=== PATIENT | female | born 1960 | race Two or more races ===

== ENCOUNTER 2021-01-04 18:46 | Emergency (ER) | payer SELFPAY ==
[~2021-01-04] VITALS: Ht 165.1 cm; Wt 92.1 kg
[2021-01-04] MEDS ORDERED: KETOROLAC TROMETH 60MG/2ML VIAL IM ONE (19:45)
[2021-01-04 19:48] VITALS: BP 146/65
== END 2021-01-04 20:08 | disposition home or self-care (01) ==
LOC: ER 18:48
DX: M19.90 Unspecified osteoarthritis, unspecified site (principal); I10 Essential (primary) hypertension; Z88.6 Allergy status to analgesic agent
CPT/HCPCS: 96372; 99283; J1885

== ENCOUNTER 2021-06-02 14:04 | Inpatient (IN) | payer MEDICAID, OTHER ==
[~2021-06-02] VITALS: Ht 165.1 cm; Wt 90.5 kg
[2021-06-02 14:53] LABS: Basophils # (auto) 0.1 10 ^3/uL (0-0.2); Basophils % (auto) 1.6 % (0.0-2.0); Eosinophils # (auto) 0.2 10 ^3/uL (0-0.8); Eosinophils % (auto) 2.9 % (0.0-7.0); Hematocrit 41.5 % (36.0-46.0); Hemoglobin 14.6 g/dL (12.2-16.2); Lymphocytes # (auto) 3.3 10 ^3/uL (0.4-5.4); Lymphocytes % (auto) 41.9 % (10.0-50.0); Mean Corpuscular Hgb Conc. 35.1 g/dL (32.0-36.0); Mean Corpuscular Volume 82.5 fL (80.0-100.0); Monocytes # (auto) 0.3 10 ^3/uL (0-1.3); Monocytes % (auto) 3.2 % (0.0-12.0); Neutrophils % (auto) 50.4 % (37.0-80.0); Nucleated Red Blood Cells % 0.3 %; Red Blood Cells 5.03 10^6/uL (4.0-5.20); Red Cell Distribution Width 13.8 % (11.8-14.3)
[2021-06-02 15:28] LABS: Calcium 9.2 mg/dL (8.5-10.1); Chloride 108 mmol/L (98-107); Potassium 3.7 mmol/L (3.5-5.1); Sodium 140 mmol/L (136-145)
[2021-06-02 15:31] LABS: Alanine Aminotransferase 63 U/L (13-56); Anion Gap 8 (5-15); Aspartate Aminotransferase 29 U/L (15-37); BUN/Creatinine Ratio 13.2; Blood Urea Nitrogen 10 mg/dL (7-18); Carbon Dioxide 24 mmol/L (21-32); GFR African American 100 mL/min; GFR Non-African American 83 mL/min; Glucose 102 mg/dL (74-106); Magnesium 2.4 mg/dL (1.6-2.6)
[2021-06-02 15:36] LABS: Alkaline Phosphatase 101 U/L (45-117); Bilirubin, Total 0.2 mg/dL (0.2-1.0); Total Protein 7.8 g/dL (6.4-8.2)
[2021-06-02] MEDS ORDERED: CLINDAMYCIN 600MG IV 50 ML IV ONE (16:00)
[2021-06-02] MEDS ORDERED: MORPHINE SULFATE INJECTION 2 MG/ML SYRG IV PRN ×2 (16:30→21:15)
[2021-06-02] MEDS ORDERED: NITROGLYCERIN 0.4 MG SL TAB SL PRN (16:30)
[2021-06-02] MEDS ORDERED: ONDANSETRON HCL 4 MG/2 ML VIAL IV PRN (21:15)
[2021-06-02] MEDS ORDERED: diphenhdrAMINE HCL 50 MG/1 ML VL IV PRN (21:15)
[2021-06-02] MEDS ORDERED: IPRATROPIUM BROM 0.5 MG/2.5ML INH SOL NEB ONE (21:15)
[2021-06-02] MEDS ORDERED: BUDESONIDE (INHALATION) 0.5 MG/2 ML NEB NEB ONE (21:15)
[2021-06-02] MEDS ORDERED: cefTRIAXone 1GM/50ML D5W 50 ML IV ONE (21:15)
[2021-06-02] MEDS ORDERED: LACTULOSE 20Gm/30ML SOLN PO PRN (21:15)
[2021-06-02] MEDS ORDERED: LORazepam 0.5 MG TAB PO PRN (21:15)
[2021-06-02] MEDS ORDERED: HYDROcodone-ACET 5/325MG TAB PO ONE (21:15)
[2021-06-02] MEDS ORDERED: diphenhdrAMINE-ZINC ACETATE 1 APPLIC APPL TOP PRN (21:15)
[2021-06-02] MEDS ORDERED: ALBUTEROL SULF 2.5 MG/0.5ML(0.5%) NEB SOLN NEB ONE (21:15)
[2021-06-02] MEDS ORDERED: MONTELUKAST SODIUM 10 MG TAB PO ONE (21:15)
[2021-06-02] MEDS ORDERED: diphenhdrAMINE-ZINC ACETATE 1 APPLIC APPL TOP ONE (21:15)
[2021-06-02] MEDS ORDERED: ACETAMINOPHEN 325 MG TAB PO PRN (21:15)
[2021-06-02] MEDS ORDERED: hydrALAZINE HCL 20 MG/ML VL IV PRN (21:15)
[2021-06-02] MEDS ORDERED: DOCUSATE SOD 100 MG CAP PO PRN (21:15)
[2021-06-02 21:19] LABS: Magnesium 2.1 mg/dL (1.6-2.6); Phosphorus 2.5 mg/dL (2.5-4.90)
[2021-06-02 22:42] LABS: INR 0.99 (0.9-1.15); Partial Thromboplastin Time 23.6 sec (23.6-33.0)
[2021-06-02 23:05] LABS: Urine Bacteria NONE SEEN /hpf (None Seen); Urine Blood Negative /uL (Negative); Urine Specific Gravity 1.004 (1.001-1.035); Urine WBC 2 /hpf (0 - 5)
[2021-06-03] MEDS: POTASSIUM CHL 20 Meq TABLET PO SCH ×2 (00:09→10:40)
[2021-06-03] MEDS: ATORVASTATIN 20 MG TAB PO SCH ×2 (00:09→21:36)
[2021-06-03] MEDS: CLINDAMYCIN 600MG IV 50 ML IV SCH ×4 (00:57→22:10)
[2021-06-03 01:50] VITALS: BP 130/78
[2021-06-03] MEDS ORDERED: IPRATROPIUM BROM 0.5 MG/2.5ML INH SOL NEB SCH (02:00)
[2021-06-03] MEDS: HYDROcodone-ACET 5/325MG TAB PO PRN ×2 (04:46→10:44)
[2021-06-03] MEDS ORDERED: AML5T PO (04:52)
[2021-06-03] MEDS ORDERED: LISI40TA11 PO (04:52)
[2021-06-03] MEDS ORDERED: ALBU108A5 IN (04:53)
[2021-06-03 05:00] VITALS: BP 115/64
[2021-06-03 05:57] LABS: Basophils # (auto) 0.1 10 ^3/uL (0-0.2); Basophils % (auto) 0.7 % (0.0-2.0); Eosinophils # (auto) 0.3 10 ^3/uL (0-0.8); Hematocrit 37.7 % (36.0-46.0); Hemoglobin 13.2 g/dL (12.2-16.2); Lymphocytes # (auto) 3.7 10 ^3/uL (0.4-5.4); Lymphocytes % (auto) 42.7 % (10.0-50.0); Mean Corpuscular Volume 82.9 fL (80.0-100.0); Monocytes # (auto) 0.3 10 ^3/uL (0-1.3); Monocytes % (auto) 3.8 % (0.0-12.0); Neutrophils # (auto) 4.3 10 ^3/uL (1.6-8.6); Neutrophils % (auto) 49.8 % (37.0-80.0); Nucleated Red Blood Cells % 0.2 %; Red Blood Cells 4.55 10^6/uL (4.0-5.20); Red Cell Distribution Width 13.9 % (11.8-14.3); White Blood Cell 8.7 10^3/uL (4.4-10.8)
[2021-06-03] MEDS ORDERED: FUROSEMIDE 20 MG/2 ML VIAL IV SCH (06:00)
[2021-06-03 06:17] LABS: INR 1.04 (0.9-1.15); Partial Thromboplastin Time 28.1 sec (23.6-33.0)
[2021-06-03 06:26] LABS: Urine Bacteria NONE SEEN /hpf (None Seen); Urine Blood Negative /uL (Negative); Urine Specific Gravity 1.007 (1.001-1.035); Urine WBC 3 /hpf (0 - 5)
[2021-06-03 06:32] LABS: Alanine Aminotransferase 49 U/L (13-56); Albumin 3.3 g/dL (3.4-5.0); Anion Gap 7 (5-15); Aspartate Aminotransferase 17 U/L (15-37); Calcium 8.6 mg/dL (8.5-10.1); Carbon Dioxide 24 mmol/L (21-32); Chloride 109 mmol/L (98-107); Glucose 117 mg/dL (74-106); Lipase 130 U/L (73-393); Magnesium 2.2 mg/dL (1.6-2.6); Potassium 3.7 mmol/L (3.5-5.1); Sodium 140 mmol/L (136-145); Uric Acid 4.2 mg/dL (2.6-6.0)
[2021-06-03 06:37] LABS: Alkaline Phosphatase 77 U/L (45-117); Bilirubin, Total 0.2 mg/dL (0.2-1.0); CRP High Sensitivity 0.38 mg/dL (< 0.3); Cholesterol 162 mg/dL (< 200); Creatine Kinase IFCC 62 U/L (26-192); GFR African American 99 mL/min; GFR Non-African American 82 mL/min; HDL Cholesterol 50 mg/dL (40-59); LDL Cholesterol 94 mg/dL (< 100); Phosphorus 3.5 mg/dL (2.5-4.90); Total Protein 6.8 g/dL (6.4-8.2); Triglycerides 130 mg/dL (< 150)
[2021-06-03] MEDS: ALBUTEROL SULF 2.5 MG/0.5ML(0.5%) NEB SOLN NEB PRN ×2 (07:00→17:01)
[2021-06-03 07:25] LABS: Alcohol, Urine < 3.0 mg/dL (0-10); Amphetamine Screen, Urine NEGATIVE (NEGATIVE); Barbiturate Scree,Urine NEGATIVE (NEGATIVE); Benzodiazephine Screen, Urine NEGATIVE (NEGATIVE); Cannabinoid Screen, Urine NEGATIVE (NEGATIVE); Cocaine Screen, Urine NEGATIVE (NEGATIVE); Opiate Scree,Urine NEGATIVE (NEGATIVE); Phencyclidine Screen, Urine NEGATIVE (NEGATIVE); Protein, Urine < 5.0 mg/dL (0.0-11.9)
[2021-06-03 07:53] LABS: BUN/Creatinine Ratio 15.6; Blood Urea Nitrogen 12 mg/dL (7-18)
[2021-06-03 09:00] VITALS: BP 119/64
[2021-06-03] MEDS ORDERED: BUDESONIDE (INHALATION) 0.5 MG/2 ML NEB NEB SCH (10:00)
[2021-06-03] MEDS: ENOXAPARIN SOD 40 MG/0.4 ML SYRINGE SC SCH (10:40)
[2021-06-03 13:00] VITALS: BP 116/75
[2021-06-03] MEDS: LEVOTHYROXINE SODIUM 50 MCG TAB PO SCH (14:13)
[2021-06-03] MEDS ORDERED: IPRATROPIUM BROM 0.5 MG/2.5ML INH SOL NEB PRN (21:45)
[2021-06-03 22:00] VITALS: BP 122/75
[2021-06-03] MEDS ORDERED: cefTRIAXone 1GM/50ML D5W 50 ML IV SCH (22:00)
[2021-06-03] MEDS ORDERED: MONTELUKAST SODIUM 10 MG TAB PO SCH (22:00)
[2021-06-04 05:00] VITALS: BP 129/82
[2021-06-04] MEDS: CLINDAMYCIN 600MG IV 50 ML IV SCH ×2 (06:26→13:30)
[2021-06-04] MEDS: LEVOTHYROXINE SODIUM 50 MCG TAB PO SCH (06:26)
[2021-06-04] MEDS: ENOXAPARIN SOD 40 MG/0.4 ML SYRINGE SC SCH (08:51)
[2021-06-04 09:47] VITALS: BP 109/60
[2021-06-04 13:21] VITALS: BP 145/88
[2021-06-04 13:24] VITALS: BP 122/64
[2021-06-04] MEDS: HYDROcodone-ACET 5/325MG TAB PO PRN (13:41)
[2021-06-04] MEDS ORDERED: LEV50T PO (14:04)
[2021-06-04] MEDS ORDERED: POTA8TAB2 PO (14:04)
[2021-06-04] MEDS ORDERED: HYDR25TA5 PO (14:04)
[2021-06-04 16:15] VITALS: BP 115/64
[2021-06-04 17:00] VITALS: BP_SYST 138; BP_SYST 143; BP_DIAS 69; BP_DIAS 92
[2021-06-05] MEDS ORDERED: FUROSEMIDE 20 MG/2 ML VIAL IV SCH (06:00)
== END 2021-06-04 18:40 | disposition home or self-care (01) | DRG 383 ==
LOC: ER 14:04 → TELE 16:23 → TELE-EAST 23:41
PROVIDERS: ADMIT Hospitalist; ATTEND Internal Medicine
DX: L03.116 Cellulitis of left lower limb (principal); E44.0 Moderate protein-calorie malnutrition; D69.0 Allergic purpura; I87.2 Venous insufficiency (chronic) (peripheral); L03.115 Cellulitis of right lower limb; L25.9 Unspecified contact dermatitis, unspecified cause; J45.909 Unspecified asthma, uncomplicated; K21.9 Gastro-esophageal reflux disease without esophagitis; M19.90 Unspecified osteoarthritis, unspecified site; E03.9 Hypothyroidism, unspecified; E66.01 Morbid (severe) obesity due to excess calories; E78.5 Hyperlipidemia, unspecified; Z20.822 Contact with and (suspected) exposure to COVID-19; I10 Essential (primary) hypertension; R73.03 Prediabetes; Z68.33 Body mass index [BMI] 33.0-33.9, adult; Z88.6 Allergy status to analgesic agent; Z90.49 Acquired absence of other specified parts of digestive tract; Z98.51 Tubal ligation status
CPT/HCPCS: 36415; 71046; 80053; 80061; 80307; 81001; 82306; 82550; 82728; 83036; 83615; 83690; 83735; 83880; 84100; 84156; 84439; 84443; 84484; 84550; 85025; 85379; 85610; 85652; 85730; 86141; 87040; 87070; 87086; 87205; 93306; 93925; 93970; 94640; 96365; 96367; G0378; J0696; J3490

== ENCOUNTER → 2022-06-20 | Outpatient (CLI) | payer MEDICAID ==
[~2022-06-20] MED LIST: ALBU108A5 IN; HYDR25TA5 PO; LEV50T PO; LISI40TA11 PO; POTA8TAB2 PO
== END | disposition home or self-care (01) ==
LOC: Rad HDHVI 11:09
PROVIDERS: ATTEND Internal Medicine Cardiovascular Disease
DX: I10 Essential (primary) hypertension (principal)
CPT/HCPCS: 93306

== ENCOUNTER → 2022-08-08 | Outpatient (CLI) | payer MEDICAID ==
[~2022-08-08] VITALS: Ht 165.1 cm; Wt 90.7 kg
[~2022-08-08] MED LIST changes: +ADENOSINE 76 MG in GIVE UN-DILUTED 0 ML IV ONE; +ADENOSINE 90 MG/30 ML INJ IV ONE; +CEPH500C PO; +CETITAB29 PO; -LISI40TA11 PO; +LISI40TA16 PO; -POTA8TAB2 PO; +POTA8TAB38 PO; +PRED10TA PO
== END | disposition home or self-care (01) ==
LOC: Rad HDHVI 08:29
PROVIDERS: ATTEND Internal Medicine Cardiovascular Disease
DX: I10 Essential (primary) hypertension (principal); R07.89 Other chest pain; R00.2 Palpitations; Z82.49 Family history of ischemic heart disease and other diseases of the circulatory system
CPT/HCPCS: 78452; 93005; 96374; 96375; A9500; J0153

== ENCOUNTER 2022-09-25 18:07 | Emergency (ER) | payer MEDICAID ==
[~2022-09-25] VITALS: Ht 165.1 cm; Wt 91.3 kg
[~2022-09-25 18:07] MED LIST changes: -ADENOSINE 76 MG in GIVE UN-DILUTED 0 ML IV ONE; -ADENOSINE 90 MG/30 ML INJ IV ONE
[2022-09-25 19:31] LABS: Calcium 8.9 mg/dL (8.5-10.1); Potassium 3.9 mmol/L (3.5-5.1)
[2022-09-25 19:33] LABS: Basophils # (auto) 0.2 10 ^3/uL (0-0.2); Basophils % (auto) 2.8 % (0.0-2.0); Eosinophils # (auto) 0 10 ^3/uL (0-0.8); Eosinophils % (auto) 0.2 % (0.0-7.0); Hemoglobin 14.9 g/dL (12.2-16.2); Lymphocytes # (auto) 0.8 10 ^3/uL (0.4-5.4); Lymphocytes % (auto) 11.4 % (10.0-50.0); Mean Corpuscular Hemoglobin 28.7 pg (28.0-32.0); Mean Corpuscular Hgb Conc. 33.8 g/dL (32.0-36.0); Monocytes # (auto) 0.5 10 ^3/uL (0-1.3); Monocytes % (auto) 6.2 % (0.0-12.0); Neutrophils # (auto) 5.8 10 ^3/uL (1.6-8.6); Neutrophils % (auto) 79.4 % (37.0-80.0); Nucleated Red Blood Cells % 0.1 %; Red Blood Cells 5.18 10^6/uL (4.0-5.20); Red Cell Distribution Width 13.3 % (11.8-14.3); White Blood Cell 7.3 10^3/uL (4.4-10.8)
[2022-09-25 19:36] LABS: BUN/Creatinine Ratio 13.4 (10.0-20.0); Bilirubin, Total 0.4 mg/dL (0.2-1.0); Total Protein 7.3 g/dL (6.4-8.2)
[2022-09-25 19:54] LABS: INR 0.98 (0.9-1.15); Partial Thromboplastin Time 32.8 SEC (24.5-34.5)
[2022-09-25] MEDS ORDERED: ALBUTEROL SULF 2.5 MG/0.5ML(0.5%) NEB SOLN NEB ONE (21:30)
[2022-09-25] MEDS ORDERED: IPRATROPIUM BROM 0.5 MG/2.5ML INH SOL NEB ONE (21:30)
[2022-09-25] MEDS ORDERED: MONT-8 PO (21:56)
[2022-09-25] MEDS ORDERED: AZITTAB PO (21:56)
[2022-09-25] MEDS ORDERED: PROM1SOL4 PO (21:56)
[2022-09-25 22:18] VITALS: BP 145/81; PULSE 93; RESP 17; TEMP 98.6; O2SAT 99
== END 2022-09-25 22:29 | disposition home or self-care (01) ==
LOC: ER 18:07
DX: B34.8 Other viral infections of unspecified site (principal); J06.9 Acute upper respiratory infection, unspecified; M79.18 Myalgia, other site; R51.9 Headache, unspecified; J45.909 Unspecified asthma, uncomplicated; I10 Essential (primary) hypertension; Z90.49 Acquired absence of other specified parts of digestive tract; Z98.51 Tubal ligation status; Z88.6 Allergy status to analgesic agent
CPT/HCPCS: 36415; 71045; 80053; 83880; 84484; 85025; 85610; 85730; 93005; 94640; 99285; J7644

== ENCOUNTER 2022-12-21 18:05 | Emergency (ER) | payer MEDICAID ==
[~2022-12-21] VITALS: Ht 165.1 cm; Wt 92.8 kg
[~2022-12-21 18:05] MED LIST changes: +AZITTAB PO; +MONT-8 PO; +PROM1SOL4 PO
[2022-12-21 20:43] VITALS: BP 130/61; PULSE 68; RESP 18; O2SAT 99
[2022-12-21] MEDS ORDERED: LORazepam 0.5 MG TAB PO ONE (20:45)
== END 2022-12-21 21:15 | disposition home or self-care (01) ==
LOC: ER 18:05
DX: F41.9 Anxiety disorder, unspecified (principal); J45.909 Unspecified asthma, uncomplicated; I10 Essential (primary) hypertension; Z90.49 Acquired absence of other specified parts of digestive tract; Z98.890 Other specified postprocedural states

== ENCOUNTER 2023-01-31 21:34 | Emergency (ER) | payer MEDICAID ==
[~2023-01-31] VITALS: Ht 162.6 cm; Wt 96.5 kg
[2023-02-01 00:01] VITALS: BP 161/89; PULSE 81; RESP 18; TEMP 98.1; O2SAT 96
[2023-02-01] MEDS ORDERED: HYDROcodone-ACET 5/325MG TAB PO ONE (01:15)
[2023-02-01] MEDS ORDERED: CYCL-837 PO (02:00)
== END 2023-02-01 02:23 | disposition home or self-care (01) ==
LOC: ER 21:34
DX: M25.511 Pain in right shoulder (principal); I10 Essential (primary) hypertension; E03.9 Hypothyroidism, unspecified; J45.909 Unspecified asthma, uncomplicated; Z90.49 Acquired absence of other specified parts of digestive tract; Z79.899 Other long term (current) drug therapy; Z88.6 Allergy status to analgesic agent
CPT/HCPCS: 73030

== ENCOUNTER → 2023-08-04 | Outpatient (CLI) | payer MEDICAID ==
[~2023-08-04] VITALS: Ht 165.1 cm; Wt 90.7 kg
[~2023-08-04] MED LIST changes: +ACET650T12 PO; +ADENOSINE 76 MG in GIVE UN-DILUTED 0 ML IV ONE; +ADENOSINE 90 MG/30 ML INJ IV ONE; +AMLO1TAB23 PO; +ATOR20TA50 PO; -AZITTAB PO; -CEPH500C PO; +DOCU-265 PO; +FLUT50SP NAS; +GABA-339 PO; +HYDR-3682 PO; -LISI40TA16 PO; +LOSA-534 PO; +METF-1145 PO; +PANT40TA2 PO; -POTA8TAB38 PO; -PRED10TA PO; -PROM1SOL4 PO; +RAME8TAB26 PO; +SUMA25TA2 PO; +TOPI25CA5 PO; +TRAZ-181 PO; +VENL150C58 PO
== END | disposition home or self-care (01) ==
LOC: Rad HDHVI 12:59
PROVIDERS: ATTEND Internal Medicine Cardiovascular Disease
DX: I10 Essential (primary) hypertension (principal); R06.02 Shortness of breath; R07.89 Other chest pain; R00.2 Palpitations; R42 Dizziness and giddiness; I25.2 Old myocardial infarction; E11.9 Type 2 diabetes mellitus without complications; E78.5 Hyperlipidemia, unspecified
CPT/HCPCS: 78452; 93005; 96374; 96375; A9500; J0153

== ENCOUNTER 2023-10-27 16:19 | Emergency (ER) | payer MEDICAID ==
[~2023-10-27] VITALS: Ht 165.1 cm; Wt 115.0 kg
[~2023-10-27 16:19] MED LIST changes: -ADENOSINE 76 MG in GIVE UN-DILUTED 0 ML IV ONE; -ADENOSINE 90 MG/30 ML INJ IV ONE; -LEV50T PO; +LEVO-848 PO
[2023-10-27 18:00] LABS: Urine Bacteria None Seen /hpf (None Seen)
[2023-10-27 18:30] LABS: Urine Blood Negative /uL (Negative); Urine Clarity Turbid (Clear); Urine Color Yellow (Yellow); Urine Mucus FEW (None Seen); Urine Protein, UAD TRACE (Negative); Urine Specific Gravity 1.019 (1.001-1.035); Urine Urobilinogen Normal (Negative); Urine WBC 1 /hpf (0 - 5)
[2023-10-27 19:31] LABS: Basophils # (auto) 0.1 10 ^3/uL (0-0.2); Basophils % (auto) 0.7 % (0.0-2.0); Eosinophils # (auto) 0.2 10 ^3/uL (0-0.8); Eosinophils % (auto) 2.3 % (0.0-7.0); Hematocrit 41.1 % (36.0-46.0); Hemoglobin 13.8 g/dL (12.2-16.2); Lymphocytes # (auto) 3.5 10 ^3/uL (0.4-5.4); Lymphocytes % (auto) 38.6 % (10.0-50.0); Mean Corpuscular Hemoglobin 28.5 pg (28.0-32.0); Mean Corpuscular Hgb Conc. 33.7 g/dL (32.0-36.0); Mean Corpuscular Volume 84.6 fL (80.0-100.0); Monocytes # (auto) 0.3 10 ^3/uL (0-1.3); Monocytes % (auto) 3.3 % (0.0-12.0); Neutrophils % (auto) 55.1 % (37.0-80.0); Platelet Count (auto) 276 10^3/uL (140-450); Red Blood Cells 4.86 10^6/uL (4.0-5.20); Red Cell Distribution Width 14.6 % (11.8-14.3); White Blood Cell 9.1 10^3/uL (4.4-10.8)
[2023-10-27 19:43] LABS: Alanine Aminotransferase 26 U/L (7-40); Alkaline Phosphatase 118 U/L (46-116); Anion Gap 6 (5-15); Aspartate Aminotransferase 16 U/L (13-40); Bilirubin, Total 0.4 mg/dL (0.2-1.0); Calcium 10.1 mg/dL (8.7-10.4); Carbon Dioxide 29 mmol/L (20-30); Chloride 105 mmol/L (98-107); Glucose 89 mg/dL (74-106); Potassium 4.2 mmol/L (3.5-5.1); Sodium 140 mmol/L (136-145); Total Protein 7.6 g/dL (5.7-8.2)
[2023-10-27 20:09] LABS: BUN/Creatinine Ratio 12.2 (10.0-20.0); Blood Urea Nitrogen 10 mg/dL (9-23)
[2023-10-27 21:22] VITALS: BP 137/57; PULSE 73; RESP 19; TEMP 97.2; O2SAT 99
[2023-10-27] MEDS: FUROSEMIDE 20 MG TAB PO ONE (21:55)
[2023-10-27] MEDS: NITROGLYCERIN 0.4 MG SL TAB SL ONE (21:55)
== END 2023-10-27 21:56 | disposition home or self-care (01) ==
LOC: ER 16:19
DX: I10 Essential (primary) hypertension (principal); I11.0 Hypertensive heart disease with heart failure; I50.9 Heart failure, unspecified; I25.10 Atherosclerotic heart disease of native coronary artery without angina pectoris; E11.9 Type 2 diabetes mellitus without complications; E78.5 Hyperlipidemia, unspecified; F41.9 Anxiety disorder, unspecified; F32.9 Major depressive disorder, single episode, unspecified; Z86.73 Personal history of transient ischemic attack (TIA), and cerebral infarction without residual deficits; Z98.890 Other specified postprocedural states; Z79.899 Other long term (current) drug therapy; Z88.8 Allergy status to other drugs, medicaments and biological substances
CPT/HCPCS: 36415; 80053; 81001; 84484; 85025; 93005

== ENCOUNTER 2023-12-07 22:20 | Emergency (ER) | payer MEDICAID ==
[~2023-12-07] VITALS: Ht 165.1 cm; Wt 94.1 kg
[2023-12-07 22:20] VITALS: BP 116/83; RESP 20; O2SAT 96
[2023-12-07 22:54] VITALS: PULSE 74
[2023-12-08 00:09] LABS: Basophils # (auto) 0.1 10 ^3/uL (0-0.2); Basophils % (auto) 0.7 % (0.0-2.0); Eosinophils # (auto) 0.3 10 ^3/uL (0-0.8); Eosinophils % (auto) 3.9 % (0.0-7.0); Hematocrit 36.8 % (36.0-46.0); Hemoglobin 12.4 g/dL (12.2-16.2); Lymphocytes # (auto) 3.4 10 ^3/uL (0.4-5.4); Lymphocytes % (auto) 41.4 % (10.0-50.0); Mean Corpuscular Hemoglobin 28.4 pg (28.0-32.0); Mean Corpuscular Hgb Conc. 33.6 g/dL (32.0-36.0); Mean Corpuscular Volume 84.7 fL (80.0-100.0); Monocytes # (auto) 0.4 10 ^3/uL (0-1.3); Monocytes % (auto) 4.3 % (0.0-12.0); Neutrophils # (auto) 4.1 10 ^3/uL (1.6-8.6); Neutrophils % (auto) 49.7 % (37.0-80.0); Platelet Count (auto) 263 10^3/uL (140-450); Red Blood Cells 4.35 10^6/uL (4.0-5.20); Red Cell Distribution Width 14.2 % (11.8-14.3); White Blood Cell 8.2 10^3/uL (4.4-10.8)
[2023-12-08 00:29] LABS: Alanine Aminotransferase 16 U/L (7-40); Albumin 4.6 g/dL (3.2-4.8); Alkaline Phosphatase 111 U/L (46-116); Anion Gap 8 (5-15); Aspartate Aminotransferase 12 U/L (13-40); BUN/Creatinine Ratio 14.6 (10.0-20.0); Bilirubin, Total 0.2 mg/dL (0.2-1.0); Blood Urea Nitrogen 12 mg/dL (9-23); Calcium 9.7 mg/dL (8.7-10.4); Carbon Dioxide 26 mmol/L (20-31); Chloride 107 mmol/L (98-107); Glucose 104 mg/dL (74-106); Potassium 3.6 mmol/L (3.5-5.1); Sodium 141 mmol/L (136-145)
[2023-12-08] MEDS ORDERED: FURO1TAB31 PO (01:27)
== END 2023-12-08 01:51 | disposition home or self-care (01) ==
LOC: ER 22:20
DX: M79.671 Pain in right foot (principal); M79.672 Pain in left foot; M79.18 Myalgia, other site; R60.0 Localized edema; M79.89 Other specified soft tissue disorders; I10 Essential (primary) hypertension; E11.9 Type 2 diabetes mellitus without complications; F32.A Depression, unspecified; F41.9 Anxiety disorder, unspecified; J45.909 Unspecified asthma, uncomplicated; M19.90 Unspecified osteoarthritis, unspecified site; Z79.84 Long term (current) use of oral hypoglycemic drugs; Z79.899 Other long term (current) drug therapy; Z90.49 Acquired absence of other specified parts of digestive tract; Z88.6 Allergy status to analgesic agent; Z98.890 Other specified postprocedural states
CPT/HCPCS: 36415; 71045; 80053; 83880; 84484; 85025; 93005

== ENCOUNTER 2024-02-07 15:13 | Emergency (ER) | payer MEDICAID ==
[~2024-02-07] VITALS: Ht 165.1 cm; Wt 92.5 kg
[~2024-02-07 15:13] MED LIST changes: +FURO1TAB31 PO
--- NOTE | 2024-02-07 15:26 | ED.PDOC ---
SOB-HPI HPI Comments 63 year old female presents to the ED with chief complaint of chest pain. Patient reports she has been experiencing chest pain with associated cough, nasal congestion, and worsening chest pain when coughing for the past 3 days. Patient relays that there are sick contacts at home. Patient denies any fever, chills, headache, dizziness, SOB, or N/V. Time Seen by MD: 15:23 Primary Care Provider: LING Domingo notes: Nurses Notes, Medications, Allergies Information Source: Patient Mode of Arrival: Ambulatory Severity: Moderate Timing: Days Duration: Since onset Context: At Rest PE Risk Factors: None History of: Asthma Prehospital treatment: None Modifying Factors: Nothing Associated Signs and Symptoms: Cough, Nasal Congestion, Chest Pain Quality: Tightness Radiation: Back Location: Substernal If cough with SOB: Non-Productive Past Medical History PAST MEDICAL HISTORY: Anxiety, Arthritis, Asthma, Depression, DM, High Lipids, HTN, Thyroid Surgical History: Appendectomy, Cholecystectomy, Tubal Ligation 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 History Family History Family History: Reviewed,noncontributory to illness, Family hx of HTN Social History Smoker: Non-Smoker Alcohol: Denies ETOH Use Drugs: Denies Drug Use Lives In: Home Constitutional: denies: chills, diaphoresis, fatigue, fever, malaise, sweats, weakness, others EENTM: reports: nose congestion; denies: blurred vision, double vision, ear bleeding, ear discharge, ear drainage, ear pain, ear ringing, eye pain, eye redness, hearing loss, mouth pain, mouth swelling, nasal discharge, nose bleeding, nose pain, photophobia, tearing, throat pain, throat swelling, voice changes, others Respiratory: reports: cough; denies: hemoptysis, orthopnea, SOB at rest, shortness of breath, SOB with excertion, stridor, wheezing, others Cardiovascular: reports: chest pain; denies: dizzy spells, diaphoresis, Dyspnea on exertion, edema, irregular heart beat, left arm pain, lightheadedness, palpitations, PND, syncope, others Gastrointestinal: denies: abdomen distended, abdominal pain, blood streaked bowels, constipated, diarrhea, dysphagia, difficulty swallowing, hematemesis, melena, nausea, poor appetite, poor fluid intake, rectal bleeding, rectal pain, vomiting, others Genitourinary: denies: abnormal vagina bleeding, burning, dyspareunia, dysuria, flank pain, frequency, hematuria, incontinence, pain, , vagina discharge, urgency, others Neurological: denies: dizziness, fainting, headache, left sided numbness, left sided weakness, numbness, paresthesia, pre-existing deficit, right sided numbness, right sided weakness, seizure, speech problems, tingling, tremors, weakness, others Musculoskeletal: reports: back pain; denies: gout, joint pain, joint swelling, muscle pain, muscle stiffness, neck pain, others Integumetry: denies: bruises, change in color, change in hair/nails, dryness, laceration, lesions, lumps, rash, wounds, others Allergic/Immunocompromised: denies: Difficulty Healing, Frequent Infections, Hives, Itching, others Hematologic/Lymphatic: denies: anemia, blood clots, easy bleeding, easy bruising, swollen glands, others Endocrine: denies: excessive hunger, excessive sweating, excessive thirst, excessive urination, flushing, intolerance to cold, intolerance to heat, unexplained weight gain, unexplained weight loss, others Psychiatric: denies: anxiety, bipolar disorder, depression, hopeless, panic disorder, schizophrenia, sleepless, suicidal, others All Other Systems: Reviewed and Negative Physical Exam General Appearance: No Apparent Distress, Normal HEENT: Normal ENT Inspection, PERRL/EOMI, Other (Nasally voice.) Neck: Full Range of Motion, Non-Tender, Normal, Normal Inspection Respiratory: Chest Non-Tender, Lungs Clear, No Accessory Muscle Use, No Respiratory Distress, Normal Breath Sounds Cardiovascular: No Edema, No JVD, No Murmur, No Gallop, Normal Peripheral Pulses, Regular Rate/Rhythm Breast Exam: Deferred Gastrointestinal: No Organomegaly, Non Tender, No Pulsatile Mass, Normal Bowel Sounds, Soft Genitalia: Deferred Pelvic: Deferred Rectal: Deferred Extremities: No calf tenderness, Normal capillary refill, Normal inspection, Normal range of motion, Non-tender, No pedal edema Musculoskeletal : Apperance: Normal Neurologic: Alert, architecture department 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 Was a procedure done?: No Differential Dx Differential Diagnosis: Asthma, Bronchitis, Pneumonia, Sinusitis, Allergic Rhinitis, URI, Other (influenza, covid) X-Ray, Labs, Meds, VS Vital Signs Date Time Temp Pulse Resp B/P (MAP) Pulse Ox O2 Delivery O2 Flow Rate FiO2 02/07/24 15:27 78 02/07/24 15:16 97.8 84 17 138/52 (80) 98 Lab Test 02/07/24 15:25 Range/Units Influenza Type A Antigen Negative Negative Influenza Type B Antigen Negative Negative SARS-CoV-2 Antigen (Rapid) Negative NEGATIVE - The following tests were ordered, and results were reviewed by me: COVID-19 swab, Influenza A/B swab, Chest XR, and EKG. - I reviewed and agreed with the following test results read by other provider: Chest XR. - I discussed treatments and results with medical personnel. Images Reviewed?: Images reviewed and evaluated by me Time of 1ST Reevaluation: 16:23 Reevaluation 1ST: Unchanged Patient Education/Counseling: Diagnosis, Treatment, Prognosis, Need For Follow Up Family Education/Counseling: No Family Present Additional Information this is a well appearing female with viral symptoms. she tested negative for influenza and covid. she is stable for outpatient follow ups with her pcp. cxr is also clear. i reviewed the radiology report and agree Departure 1 Departure Time of Disposition: 18:09 Impression: Primary Impression: Viral illness Disposition: 01 HOME / SELF CARE / HOMELESS Condition: Good Discharged With: Self Critical Care Note Critical Care Time?: No Stability Stability form required: No Heart Score Heart Score: Heart Score Response (Comments) Value History Slightly Suspicious 0 EKG Normal 0 Age 45-64 1 Risk Factors >3 or Hx ASHD 2 Troponin N/A 0 Total 3 I personally scribed for DIANA VILLAVICENCIO MD ([email or web address]) on 02/07/24 at 15:26. Electronically submitted by Roger Joseph ([email or web address]). I personally scribed for DIANA VILLAVICENCIO MD ([email or web address]) on 02/07/24 at 15:27. Electronically submitted by Roger Joseph ([email or web address]). DIANA VILLAVICENCIO MD Feb 07, 2024 15:26
--- NOTE | 2024-02-07 16:18 | DVH ---
CHEST RADIOGRAPH Indication: PAIN Technique: Single frontal view of the chest was obtained COMPARISON: XY CHEST XRAY 1 VIEW on DOS: 12/07/23, XY CHEST PORTABLE on DOS: 07/23/23, XY CHEST PORTABL E on DOS: 06/04/23, XY CHEST PORTABLE on DOS: 09/25/22 FINDINGS: Lines and Tubes: None Lungs: Clear Pleura: No effusion. No pneumothorax. Cardiomediastinal contours: Unremarkable Bones: Unremarkable IMPRESSION: 1. No acute disease.
[2024-02-07 16:29] LABS: COVID19 ANTIGEN SOFIA FIA NEGATIVE (NEGATIVE); Rapid Influenza A Negative (Negative); Rapid Influenza B Negative (Negative)
[2024-02-07 18:20] VITALS: BP 136/60; PULSE 85; RESP 16; TEMP 99; O2SAT 98
--- NOTE | 2024-02-09 12:59 | ECG ---
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
== END 2024-02-07 18:29 | disposition home or self-care (01) ==
LOC: ER 15:13
DX: B34.9 Viral infection, unspecified (principal); E11.9 Type 2 diabetes mellitus without complications; E78.5 Hyperlipidemia, unspecified; Z90.49 Acquired absence of other specified parts of digestive tract; Z90.89 Acquired absence of other organs; Z90.710 Acquired absence of both cervix and uterus; Z20.822 Contact with and (suspected) exposure to COVID-19
CPT/HCPCS: 36415; 71045; 87426; 87804; 93005

== ENCOUNTER 2024-05-03 12:25 | Emergency (ER) | payer MEDICAID ==
[~2024-05-03] VITALS: Ht 165.1 cm; Wt 89.6 kg
--- NOTE | 2024-05-03 12:52 | ED.PDOC ---
GI ASSESSMENT HPI Comments 63 y/o F, with PMHX of HTN, HLD, and DM presents to the ED for CC of abdominal pain. Patient states, that she has been experiencing diffuse abdominal pain that radiates to her lower back x4days. Patient relays, that she has been unable to have a bowel movement x4days and believes symptoms are in association. Patient comments on, current 10/10 pain. Patient denies similar pain in the past, headache, fever, nausea, or vomiting. No other symptoms or modifying factors at this time. Chief Complaint: Abdominal Pain Time Seen by MD: 13:00 Primary Care Provider: unknown Reviewed Notes: Nurses Notes, Medications, Allergies Allergies: Coded Allergies: Aspirin (Verified Allergy, Unknown, 01/04/21) Home Meds Active Scripts Furosemide (Lasix) 40 Mg Tab, 40 MG PO DAILY for 20 Days, #20 TAB Prov:ARIANNA DUNN 12/08/23 Atorvastatin Calcium (ATORVASTATIN CALCIUM) 20 Mg Tab, 40 MG PO HS for 90 Days, #180 TAB Prov:FEMI JEWELL 06/07/23 Montelukast Sodium (MONTELUKAST SODIUM) 10 Mg Tab, 1 TAB PO DAILY PRN, #30 TAB 5 Refills Prov:ARIANNA DUNN 09/25/22 Cetirizine HCl (Eql All Day Allergy) 10 Mg Tab, 10 MG PO DAILY PRN, #30 TAB 0 Refills Prov:BETTE ROSALES 08/06/22 Hctz (Hydrochlorothiazide) 25 Mg Tab, 25 MG PO DAILY for 30 Days, #30 TAB Prov:ELIDA DEVINE MD 06/04/21 Levothyroxine Sodium (SYNTHROID TABLET) 50 Mcg Tb, 50 MCG PO QAM for 30 Days, #30 TAB Prov:ELIDA DEVINE MD 06/04/21 Reported Medications Topiramate (Topiramate) 25 Mg Cap, 25 MG PO DAILY, MG 07/24/23 Pantoprazole Sodium Sesquihydr (Protonix) 40 Mg Tab, 40 MG PO DAILY, TAB 07/24/23 Gabapentin (Gabapentin) 600 Mg Tab, 600 MG PO BID, MG 07/24/23 Amlodipine Besylate (Amlodipine Besylate) 10 Mg Tab, 10 MG PO DAILY, TAB 07/24/23 Trazodone HCl (Trazodone Hydrochloride) 50 Mg Tab, 50 MG PO HS, TAB 07/24/23 Sumatriptan Succinate (Sumatriptan Succinate) 25 Mg Tab, 1 TAB PO DAILY PRN for MIGRAINES Take 1 tablet by mouth once a day as need for migraines. If symptoms persists or return, may repeat dose after 2 hours. 06/05/23 Fluticasone Propionate (Nasal) (Fluticasone Propionate) 50 Mcg/Act Spr, 2 SPRAY HUDSON DAILY 06/04/23 Ramelteon (Ramelteon) 8 Mg Tab, 1 TAB PO HS 06/04/23 Metformin Hydrochloride (Metformin Hcl Er) 500 Mg Tab, 1 TAB PO DAILY 06/04/23 Docusate Sodium (Docusate Sodium) 100 Mg Cap, 1 TAB PO TID 06/04/23 Acetaminophen (Acetaminophen Er) 650 Mg Tab, 1 TAB PO TID 06/04/23 Losartan Potassium (Losartan Potassium) 50 Mg Tab, 1 TAB PO DAILY 06/04/23 Venlafaxine Hcl (Venlafaxine Hcl Er) 150 Mg Cap, 1 CAP PO DAILY 06/04/23 Hydroxyzine Hcl (Hydroxyzine Hcl) 25 Mg Tab, 1 TAB PO DAILY 06/04/23 Albuterol Sulfate (Albuterol Sulfate Hfa) 108 Mcg/Act Aer, 90 MCG IN Q4HP PRN for SHORTNESS OF BREATH, AER 06/03/21 Information Source: Patient Mode of Arrival: Ambulatory Timing: Days Duration: Since onset Prehospital treatment: None Quality: None Vomitus: None Stool: Impaction Severity: Moderate Recent: None Recent Hx of: None Pain Location: Diffuse Modifying Factors: Nothing Associated sign and symptoms: Constipation Past Medical History PAST MEDICAL HISTORY: Anxiety, Arthritis, Asthma, Depression, DM, High Lipids, HTN, Thyroid Surgical History: Appendectomy, Cholecystectomy, Tubal Ligation 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 History Family History Family History: Reviewed,noncontributory to illness, Family hx of HTN Social History Smoker: Non-Smoker Alcohol: Denies ETOH Use Drugs: Denies Drug Use Lives In: Home Constitutional: denies: chills, diaphoresis, fatigue, fever, malaise, sweats, weakness, others EENTM: denies: blurred vision, double vision, ear bleeding, ear discharge, ear drainage, ear pain, ear ringing, eye pain, eye redness, hearing loss, mouth pain, mouth swelling, nasal discharge, nose bleeding, nose congestion, nose pain, photophobia, tearing, throat pain, throat swelling, voice changes, others Respiratory: denies: cough, hemoptysis, orthopnea, SOB at rest, shortness of breath, SOB with excertion, stridor, wheezing, others Cardiovascular: denies: chest pain, dizzy spells, diaphoresis, Dyspnea on exertion, edema, irregular heart beat, left arm pain, lightheadedness, palpitations, PND, syncope, others Gastrointestinal: reports: abdominal pain; denies: abdomen distended, blood streaked bowels, constipated, diarrhea, dysphagia, difficulty swallowing, hematemesis, melena, nausea, poor appetite, poor fluid intake, rectal bleeding, rectal pain, vomiting, others Genitourinary: denies: abnormal vagina bleeding, burning, dyspareunia, dysuria, flank pain, frequency, hematuria, incontinence, pain, , vagina discharge, urgency, others Neurological: denies: dizziness, fainting, headache, left sided numbness, left sided weakness, numbness, paresthesia, pre-existing deficit, right sided numbness, right sided weakness, seizure, speech problems, tingling, tremors, weakness, others Musculoskeletal: denies: back pain, gout, joint pain, joint swelling, muscle pain, muscle stiffness, neck pain, others Integumetry: denies: bruises, change in color, change in hair/nails, dryness, laceration, lesions, lumps, rash, wounds, others Allergic/Immunocompromised: denies: Difficulty Healing, Frequent Infections, Hives, Itching, others Hematologic/Lymphatic: denies: anemia, blood clots, easy bleeding, easy bruising, swollen glands, others Endocrine: denies: excessive hunger, excessive sweating, excessive thirst, excessive urination, flushing, intolerance to cold, intolerance to heat, unexplained weight gain, unexplained weight loss, others Psychiatric: denies: anxiety, bipolar disorder, depression, hopeless, panic disorder, schizophrenia, sleepless, suicidal, others All Other Systems: Reviewed and Negative Physical Exam General Appearance: Moderate Distress HEENT: Normal ENT Inspection, Pharynx Normal, TMs Normal Neck: Full Range of Motion, Non-Tender, Normal, Normal Inspection Respiratory: Chest Non-Tender, Lungs Clear, No Accessory Muscle Use, No Respiratory Distress, Normal Breath Sounds Cardiovascular: No Edema, No JVD, No Murmur, No Gallop, Normal Peripheral Pulses, Regular Rate/Rhythm Breast Exam: Deferred Gastrointestinal: No Organomegaly, No Pulsatile Mass, Normal Bowel Sounds, Soft, Suprapubic, Tenderness Genitalia: Deferred Pelvic: Deferred Rectal: Deferred Extremities: No calf tenderness, Normal capillary refill, Normal inspection, Normal range of motion, Non-tender, No pedal edema Musculoskeletal : Apperance: Normal Neurologic: Alert, mold closer II-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 Was a procedure done?: No GI differential Dx Differential Diagnosis: Gastritis/PUD, Gastroenteritis, Electrolyte Imbalance, Food Poisoning, Bacterial, Viral X-Ray, Labs, Meds, VS Vital Signs Date Time Temp Pulse Resp B/P (MAP) Pulse Ox O2 Delivery O2 Flow Rate FiO2 05/03/24 14:55 105 17 167/79 05/03/24 14:17 79 12 142/74 05/03/24 13:47 76 17 146/78 05/03/24 12:43 97.4 81 16 147/89 (108) 97 Lab Test 05/03/24 13:37 Range/Units White Blood Count 8.2 4.4-10.8 10^3/uL Red Blood Count 5.03 4.0-5.20 10^6/uL Hemoglobin 13.7 12.2-16.2 g/dL Hematocrit 41.7 36.0-46.0 % Mean Corpuscular Volume 82.9 80.0-100.0 fL Mean Corpuscular Hemoglobin 27.3 L 28.0-32.0 pg Mean Corpuscular Hemoglobin Concent 33.0 32.0-36.0 g/dL Red Cell Distribution Width 14.3 11.8-14.3 % Platelet Count 231 140-450 10^3/uL Mean Platelet Volume 8.7 6.9-10.8 fL Neutrophils (%) (Auto) 64.1 37.0-80.0 % Lymphocytes (%) (Auto) 30.6 10.0-50.0 % Monocytes (%) (Auto) 2.9 0.0-12.0 % Eosinophils (%) (Auto) 1.9 0.0-7.0 % Basophils (%) (Auto) 0.5 0.0-2.0 % Neutrophils # (Auto) 5.2 1.6-8.6 10 ^3/uL Lymphocytes # (Auto) 2.5 0.4-5.4 10 ^3/uL Monocytes # (Auto) 0.2 0-1.3 10 ^3/uL Eosinophils # (Auto) 0.2 0-0.8 10 ^3/uL Basophils # (Auto) 0 0-0.2 10 ^3/uL Nucleated Red Blood Cells 0.1 % Sodium Level 139 136-145 mmol/L Potassium Level 4.1 3.5-5.1 mmol/L Chloride Level 104 98-107 mmol/L Carbon Dioxide Level 25 20-31 mmol/L Anion Gap 10 5-15 Blood Urea Nitrogen 13 9-23 mg/dL Creatinine 0.79 0.550-1.02 mg/dL Glomerular Filtration Rate Calc 85 >90 mL/min BUN/Creatinine Ratio 16.5 10.0-20.0 Serum Glucose 102 74-106 mg/dL Calcium Level 10.1 8.7-10.4 mg/dL Total Bilirubin 0.3 0.2-1.0 mg/dL Aspartate Amino Transferase (AST) 19 13-40 U/L Alanine Aminotransferase (ALT) 19 7-40 U/L Alkaline Phosphatase 95 46-116 U/L Total Protein 7.5 5.7-8.2 g/dL Albumin 5.1 H 3.2-4.8 g/dL Lipase 31 12-53 U/L Current Medications Medications (Trade) Dose Ordered Sig/Dana Route Start Time Stop Time Status Last Admin Sodium Chloride 1,000 ml @ 1,000 mls/hr Q1H ONCE IV 05/03/24 13:00 05/03/24 13:59 DC 05/03/24 13:46 Morphine Sulfate 4 mg ONCE ONCE IV 05/03/24 13:00 05/03/24 13:02 DC 05/03/24 13:47 Ondansetron HCl (Zofran) 4 mg ONCE ONCE IV 05/03/24 13:00 05/03/24 13:02 DC 05/03/24 13:46 Morphine Sulfate 4 mg ONCE ONCE IV 05/03/24 14:45 05/03/24 14:46 DC 05/03/24 14:55 Ondansetron HCl (Zofran) 4 mg ONCE ONCE IV 05/03/24 14:45 05/03/24 14:46 DC 05/03/24 14:53 CT: FINDINGS: Lung bases: Lung bases are clear. Liver: Grossly unremarkable in its noncontrast enhanced appearance. No abnormal density or focal lesion identified. Biliary: Cholecystectomy. Spleen: Unremarkable. Pancreas: Mildly atrophic pancreas. Adrenal glands: Unremarkable. No mass. Kidneys: No hydronephrosis. No renal or ureteral calculi. Aorta/Vascular: Moderate atherosclerotic calcification. No abdominal aortic aneurysm. Retroperitoneum: No mass or lymphadenopathy. Bowel/mesentery: No small bowel obstruction. No free air or free fluid. Appendix is not visualized. Scattered small colonic diverticula without adjacent inflammatory changes to suggest diverticulitis. Pelvic organs: 12.4 cm uterine mass, suspected large fibroid or possibly a conglomeration of fibroids with associated calcifications. Bladder: Bladder is compressed by the fibroid uterus. Abdominal wall: No mass or hernia. Bones: No acute fracture or suspicious intraosseous lesion. IMPRESSION: 1. Enlarged fibroid uterus. Correlate with clinical findings. MRI could be obtained to further characterize if clinically indicated. 2. The bladder is compressed by the fibroid uterus. 3. Additional nonacute findings as detailed above ATED BY: CHAPARRO GUTIERREZ DO DICTATED DATE/TIME: 05/03/245 SIGNED BY: CHAPARRO GUTIERREZ DO SIGNED DATE/TIME: 05/03/24 1345 CC: The patient was given morphine 4 mg IV push for the pain The patient was given Zofran 4 mg IV push for the nausea The patient was still having persistent pain so was given another dose of morphine and Zofran. The patient's CBC and chemistry panel are within normal limits. The urine test is pending. There is a concern that this patient's pain is persistent We are going to contact the OBGYN for consultation The patient was being admitted at this time. Images Reviewed?: Images reviewed and evaluated by me Time of 1ST Reevaluation: 13:30 Reevaluation 1ST: Unchanged Patient Education/Counseling: Diagnosis, Treatment, Prognosis Family Education/Counseling: No Family Present Departure 1 Departure Time of Disposition: 15:42 Impression: Primary Impression: Intractable abdominal pain Disposition: ADMITTED INPATIENT Admit to: Med Surg Condition: Fair Critical Care Note Critical Care Time?: Yes (35 min-critical care time only) Stability Stability form required: Yes Unstable for transfer: ED Physician Assesment (Clinical assesment) Heart Score Heart Score: Heart Score Response (Comments) Value History N/A 0 EKG N/A 0 Age N/A 0 Risk Factors N/A 0 Troponin N/A 0 Total 0 I personally scribed for YUSUF CLARK MD ([email or web address]) on 05/03/24 at 12:52. Electronically submitted by Madonna Alvarenga ([email or web address]). I personally scribed for YUSUF CLARK MD ([email or web address]) on 05/03/24 at 13:00. Electronically submitted by Madonna Alvarenga ([email or web address]). I personally scribed for YUSUF CLARK MD ([email or web address]) on 05/03/24 at 14:21. Electronically submitted by Madonna Alvarenga ([email or web address]). YUSUF CLARK MD May 03, 2024 12:52
[2024-05-03] MEDS: SODIUM CHLORIDE 0.9% 1,000 ML IV ONE (13:46)
[2024-05-03] MEDS: ONDANSETRON HCL 4 MG/2 ML VIAL IV ONE ×2 (13:46→14:53)
[2024-05-03] MEDS: MORPHINE SULFATE 4 MG/ML SYR/VIAL IV ONE ×2 (13:47→14:55)
--- NOTE | 2024-05-03 13:47 | DVH ---
CLINICAL INFORMATION: 63 years old, Female; pain. TECHNIQUE: Axial CT images of the abdomen and pelvis were obtained without IV contrast. Coronal and s agittal reformatted images were obtained, reviewed, and stored. Evaluation of the parenchymal organs is limited without IV contrast. Evaluation of the bowel and mesentery is limited without oral contras t. All CT scans at this medical facility are performed using dose modulation techniques as appropriat e to a performed exam including the following: Automated exposure control was utilized; adjustment of the MA and/or KV according to patient size; and use of iterative reconstruction technique. CTDIvol = 25.47 mGy DLP = 1494.67 mGy-cm COMPARISON: [facility] on DOS: 06/03/21 FINDINGS: Lung bases: Lung bases are clear. Liver: Grossly unremarkable in its noncontrast enhanced appearance. No abnormal density or focal lesi on identified. Biliary: Cholecystectomy. Spleen: Unremarkable. Pancreas: Mildly atrophic pancreas. Adrenal glands: Unremarkable. No mass. Kidneys: No hydronephrosis. No renal or ureteral calculi. Aorta/Vascular: Moderate atherosclerotic calcification. No abdominal aortic aneurysm. Retroperitoneum: No mass or lymphadenopathy. Bowel/mesentery: No small bowel obstruction. No free air or free fluid. Appendix is not visualized. S cattered small colonic diverticula without adjacent inflammatory changes to suggest diverticulitis. Pelvic organs: 12.4 cm uterine mass, suspected large fibroid or possibly a conglomeration of fibroids with associated calcifications. Bladder: Bladder is compressed by the fibroid uterus. Abdominal wall: No mass or hernia. Bones: No acute fracture or suspicious intraosseous lesion. IMPRESSION: 1. Enlarged fibroid uterus. Correlate with clinical findings. MRI could be obtained to further charac terize if clinically indicated. 2. The bladder is compressed by the fibroid uterus. 3. Additional nonacute findings as detailed above
[2024-05-03 13:57] LABS: Basophils # (auto) 0 10 ^3/uL (0-0.2); Basophils % (auto) 0.5 % (0.0-2.0); Eosinophils # (auto) 0.2 10 ^3/uL (0-0.8); Eosinophils % (auto) 1.9 % (0.0-7.0); Hematocrit 41.7 % (36.0-46.0); Hemoglobin 13.7 g/dL (12.2-16.2); Lymphocytes # (auto) 2.5 10 ^3/uL (0.4-5.4); Lymphocytes % (auto) 30.6 % (10.0-50.0); Mean Corpuscular Hemoglobin 27.3 pg (28.0-32.0); Mean Corpuscular Volume 82.9 fL (80.0-100.0); Monocytes # (auto) 0.2 10 ^3/uL (0-1.3); Monocytes % (auto) 2.9 % (0.0-12.0); Neutrophils # (auto) 5.2 10 ^3/uL (1.6-8.6); Neutrophils % (auto) 64.1 % (37.0-80.0); Nucleated Red Blood Cells % 0.1 %; Platelet Count (auto) 231 10^3/uL (140-450); Red Blood Cells 5.03 10^6/uL (4.0-5.20); Red Cell Distribution Width 14.3 % (11.8-14.3); White Blood Cell 8.2 10^3/uL (4.4-10.8)
[2024-05-03 14:11] LABS: Alanine Aminotransferase 19 U/L (7-40); Alkaline Phosphatase 95 U/L (46-116); Anion Gap 10 (5-15); Aspartate Aminotransferase 19 U/L (13-40); BUN/Creatinine Ratio 16.5 (10.0-20.0); Bilirubin, Total 0.3 mg/dL (0.2-1.0); Blood Urea Nitrogen 13 mg/dL (9-23); Calcium 10.1 mg/dL (8.7-10.4); Carbon Dioxide 25 mmol/L (20-31); Chloride 104 mmol/L (98-107); Glucose 102 mg/dL (74-106); Lipase 31 U/L (12-53); Potassium 4.1 mmol/L (3.5-5.1); Sodium 139 mmol/L (136-145); Total Protein 7.5 g/dL (5.7-8.2)
[2024-05-03 14:15] LABS: Albumin 5.1 g/dL (3.2-4.8)
[2024-05-03] MEDS ORDERED: DOCUSATE SOD 100 MG CAP PO PRN (17:00)
[2024-05-03] MEDS ORDERED: ALBUTEROL SULF HFA 90MCG INH 200DOSE IN PRN (17:00)
[2024-05-03] MEDS ORDERED: ONDANSETRON HCL 4 MG/2 ML VIAL IV PRN (17:00)
[2024-05-03] MEDS ORDERED: HYDROcodone-ACET 5/325MG TAB PO PRN (17:00)
[2024-05-03] MEDS ORDERED: ACETAMINOPHEN 325 MG TAB PO PRN (17:00)
[2024-05-03] MEDS ORDERED: DEXTROSE (50%) 50ML SYRG IV PRN (17:15)
--- NOTE | 2024-05-03 17:17 | DVHHP2 ---
History of Present Illness Reason for Visit: Abdominal pain History of Present Illness Juliane Rios is a 63-year-old female with past medical history of hypertension, hyperlipidemia, diabetes, hypothyroidism, arthritis, asthma, and anxiety who comes in with complaints of abdominal pain. Patient states that she has been having abdominal pain for about 1 week, has not been able to eat much since 04/26/2024, and has not had a bowl movement in 4 days. She also states that she has difficulty urinating and goes frequently. Patient is a poor historian and it is difficult to get a full medical history. CT scan shows large fibroids that are compressing on her bladder, also shows diverticulosis that she didn't seem to know about. Cardiovascular: HTN, hyperipidemia Pulmonary: Asthma Psych: Anxiety Musculoskeletal: Osteoarthritis Endocrine: Diabetes, Hypothyroidism Past Surgical History: Appendectomy, Cholecystectomy, Tubal Ligation Smoke: No ALCOHOL: none Drugs: None Lives: with Family Review of Systems Constitutional: No: Fever, Chills, Sweats, Weakness, Malaise, Other Eyes: No: Pain, Vision change, Conjunctivae inflammation, Eyelid inflammation, Other, Redness ENT: No: Ear pain, Ear discharge, Nose pain, Nose discharge, Nose congestion, Mouth pain, Mouth swelling, Throat pain, Throat swelling, Other Respiratory: No: Cough, Dry, Shortness of breath, SOB with excertion, Wheezing, Hemoptysis, Pleuritic Pain, Sputum, Wheezing, Other Cardiovascular: No: Chest Pain, Palpitations, Orthopnea, Paroxysmal Noc. Dyspnea, Edema, Lt Headedness, Other Gastrointestinal: Abdominal Pain, Constipation; No: Nausea, Vomiting, Diarrhea, Melena, Hematochezia, Other Genitourinary: Dysuria, Frequency; No Incontinence, No Hematuria, No Retention, No Other Musculoskeletal: No: other, neck pain, shoulder pain, arm pain, back pain, hand pain, leg pain, foot pain Skin: No: Rash, Lesions, Jaundice, Bruising, Other Neurological: No: Weakness, Numbness, Incoordination, Change in speech, Confusion, Seizures, Other Allergies: Coded Allergies: Aspirin (Verified Allergy, Unknown, 01/04/21) Exam Vital Signs Vital Signs Date Time Temp Pulse Resp B/P (MAP) Pulse Ox O2 Delivery O2 Flow Rate FiO2 05/03/24 15:25 87 18 126/71 05/03/24 12:43 97.4 97 General Appearance: Alert, Oriented X3, Cooperative, mild distress HEENT: Atraumatic, PERRLA Respiratory: Clear to auscultation, Normal air movement Cardiovascular: Regular rate, Normal S1, Normal S2, No murmurs Abdominal: Normal bowel sounds, Soft, No hepatospenomegaly, Other (C/O abdominal pain on palpitation) Extremities: No clubbing, No cyanosis, No edema, Normal pulses, No tenderness/swelling Skin: No rashes, No breakdown, No significant lesion Neuro: Normal gait, Normal speech, Strength at 5/5 X4 ext, Normal tone Psych/Mental Status: Mental status NL, Mood NL Labs/Xrays Labs Test 05/03/24 13:37 Range/Units White Blood Count 8.2 4.4-10.8 10^3/uL Red Blood Count 5.03 4.0-5.20 10^6/uL Hemoglobin 13.7 12.2-16.2 g/dL Hematocrit 41.7 36.0-46.0 % Mean Corpuscular Volume 82.9 80.0-100.0 fL Mean Corpuscular Hemoglobin 27.3 L 28.0-32.0 pg Mean Corpuscular Hemoglobin Concent 33.0 32.0-36.0 g/dL Red Cell Distribution Width 14.3 11.8-14.3 % Platelet Count 231 140-450 10^3/uL Mean Platelet Volume 8.7 6.9-10.8 fL Neutrophils (%) (Auto) 64.1 37.0-80.0 % Lymphocytes (%) (Auto) 30.6 10.0-50.0 % Monocytes (%) (Auto) 2.9 0.0-12.0 % Eosinophils (%) (Auto) 1.9 0.0-7.0 % Basophils (%) (Auto) 0.5 0.0-2.0 % Neutrophils # (Auto) 5.2 1.6-8.6 10 ^3/uL Lymphocytes # (Auto) 2.5 0.4-5.4 10 ^3/uL Monocytes # (Auto) 0.2 0-1.3 10 ^3/uL Eosinophils # (Auto) 0.2 0-0.8 10 ^3/uL Basophils # (Auto) 0 0-0.2 10 ^3/uL Nucleated Red Blood Cells 0.1 % Sodium Level 139 136-145 mmol/L Potassium Level 4.1 3.5-5.1 mmol/L Chloride Level 104 98-107 mmol/L Carbon Dioxide Level 25 20-31 mmol/L Anion Gap 10 5-15 Blood Urea Nitrogen 13 9-23 mg/dL Creatinine 0.79 0.550-1.02 mg/dL Glomerular Filtration Rate Calc 85 >90 mL/min BUN/Creatinine Ratio 16.5 10.0-20.0 Serum Glucose 102 74-106 mg/dL Calcium Level 10.1 8.7-10.4 mg/dL Total Bilirubin 0.3 0.2-1.0 mg/dL Aspartate Amino Transferase (AST) 19 13-40 U/L Alanine Aminotransferase (ALT) 19 7-40 U/L Alkaline Phosphatase 95 46-116 U/L Total Protein 7.5 5.7-8.2 g/dL Albumin 5.1 H 3.2-4.8 g/dL Lipase 31 12-53 U/L TECHNIQUE: Axial CT images of the abdomen and pelvis FINDINGS: Lung bases: Lung bases are clear. Liver: Grossly unremarkable in its noncontrast enhanced appearance. No abnormal density or focal lesion identified. Biliary: Cholecystectomy. Spleen: Unremarkable. Pancreas: Mildly atrophic pancreas. Adrenal glands: Unremarkable. No mass. Kidneys: No hydronephrosis. No renal or ureteral calculi. Aorta/Vascular: Moderate atherosclerotic calcification. No abdominal aortic aneurysm. Retroperitoneum: No mass or lymphadenopathy. Bowel/mesentery: No small bowel obstruction. No free air or free fluid. Appendix is not visualized. Scattered small colonic diverticula without adjacent inflammatory changes to suggest diverticulitis. Pelvic organs: 12.4 cm uterine mass, suspected large fibroid or possibly a conglomeration of fibroids with associated calcifications. Bladder: Bladder is compressed by the fibroid uterus. Abdominal wall: No mass or hernia. Bones: No acute fracture or suspicious intraosseous lesion. IMPRESSION: 1. Enlarged fibroid uterus. Correlate with clinical findings. MRI could be obtained to further characterize if clinically indicated. 2. The bladder is compressed by the fibroid uterus. 3. Additional nonacute findings as detailed above Assessment/Plan Assessment/Plan Assessment: Intractable abdominal pain, Constipation, Large uterine fibroid, compressing the bladder, Diverticulosis, Hypertension, Hyperlipidemia, Diabetes, Anxiety, Asthma, Hypothyroidism, Plan: Admit to Med-Surg, ENCODING CLERK consult, Insert Ray catheter, Glycerin suppository, Accu checks Q AC&HS with sliding scale, Home medications reconciled, Consider GI consult if constipation does not improve, Plan discussed with: Patient My Orders Orders - JONNY DEMARCO ABSENCE MANAGEMENT CONSULTANT Procedure Category Date Status Time Admit ADMIT 05/03/24 Transmitted 16:49 Code Status CODE 05/03/24 Transmitted 16:49 2 Gm Sodium Diet DIET 05/03/24 Transmitted Dinner Sodium Chloride Lock PHA 05/03/24 Transmitted (Saline Lock Ns) 22:00 Hydrocodone-Acet PHA 05/03/24 Transmitted 5/325mg Tab ([place] 17:00 Ondansetron Hcl PHA 05/03/24 Transmitted (Zofran) 17:00 Docusate Sodium PHA 05/03/24 Transmitted Capsule (Colace 17:00 Complete Blood Count LAB 05/04/24 Verified 04:00 Comprehensive LAB 05/04/24 Verified Metabolic Panel 04:00 Condition: Serious EDITH 05/03/24 In Process 16:49 Acetaminophen Tablet PHA 05/03/24 Transmitted (Tylenol Tablet) 17:00 * Manager Spanish Consultation CONS 05/03/24 Transmitted 16:49 Glycerin Adult PHA 05/03/24 Transmitted Suppository (Glycerin 17:00 Insert Ray Catheter EDITH 05/03/24 In Process 16:49 Albuterol Inhaler PHA 05/03/24 Transmitted (Ventolin Hfa) 17:00 Atorvastatin (Lipitor) PHA 05/03/24 Transmitted 22:00 Docusate Sodium PHA 05/03/24 Transmitted Capsule (Colace 22:00 Furosemide Tablet PHA 05/04/24 Transmitted (Lasix Tablet) 10:00 Levothyroxine Tablet PHA 05/04/24 Transmitted (Synthroid Tablet) 07:00 Pantoprazole Tablet PHA 05/04/24 Transmitted (Protonix Tablet) 10:00 Trazodone Hcl PHA 05/03/24 Transmitted (Desyrel) 22:00 (Nf) Amlodipine PHA 05/04/24 Transmitted Besylate 10:00 (Nf) Topiramate PHA 05/04/24 Transmitted 10:00 (Nf) Venlafaxine Hcl PHA 05/04/24 Transmitted (Venlafaxine Hcl Er 10:00 Glucose Blood PHA 05/03/24 Verified (Accu-Chek Comfort 22:00 Bedtime Insulin Scale PHA 05/03/24 Verified 22:00 Moderate Insulin Ss PHA 05/04/24 Verified 07:00 Dextrose 50% Syringe PHA 05/03/24 Verified 17:15 Date of Service: May 03, 2024 Billing Provider: JONNY DEMARCO Common Visit Codes: [id number] INP/OBS CARE (MOD) JONNY DEMARCO May 03, 2024 17:17
[2024-05-03 17:25] LABS: Urine Bacteria None Seen /hpf (None Seen)
[2024-05-03] MEDS ORDERED: ALBUTEROL SULF 90 MCG IN PRN (17:30)
[2024-05-03 17:36] LABS: Urine Blood Negative /uL (Negative); Urine Clarity Clear (Clear); Urine Color Light-Yellow (Yellow); Urine Protein, UAD Negative (Negative); Urine Specific Gravity 1.011 (1.001-1.035); Urine Squamous Epithelial Cell FEW /hpf (<5); Urine Urobilinogen Normal (Negative); Urine WBC 4 /HPF (0-5)
[2024-05-03 18:30] VITALS: O2SAT 97
[2024-05-03 20:00] VITALS: BP 139/56; PULSE 68; RESP 18; TEMP 97.6; O2SAT 97
[2024-05-03] MEDS ORDERED: DOCUSATE SOD 100 MG CAP PO SCH (22:00)
[2024-05-03] MEDS: SODIUM CHLOR 0.9% PF (SALINE LOCK) 10ML VIAL/SYR IV SCH (23:59)
[2024-05-03] MEDS: GLYCERIN ADULT RECTAL SUPP PR ONE (23:59)
[2024-05-04] MEDS: traZODone HCL 50 MG TAB PO SCH (00:14)
[2024-05-04] MEDS: InsuLIN REG 1unit/0.01ml Soln (100units/ml) SC SCH ×2 (00:14→08:05)
[2024-05-04] MEDS: ATORVASTATIN 20 MG TAB PO SCH (00:14)
[2024-05-04] MEDS: ACCU-CHEK COMFORT CURVE STRIP VI SCH (00:14)
[2024-05-04] MEDS: LEVOTHYROXINE SODIUM 50 MCG TAB PO SCH (06:14)
[2024-05-04 07:09] LABS: Basophils # (auto) 0 10 ^3/uL (0-0.2); Basophils % (auto) 0.2 % (0.0-2.0); Eosinophils # (auto) 0.2 10 ^3/uL (0-0.8); Eosinophils % (auto) 2.8 % (0.0-7.0); Hemoglobin 13.2 g/dL (12.2-16.2); Lymphocytes # (auto) 1.7 10 ^3/uL (0.4-5.4); Lymphocytes % (auto) 19.5 % (10.0-50.0); Mean Corpuscular Hemoglobin 28.7 pg (28.0-32.0); Mean Corpuscular Hgb Conc. 34.7 g/dL (32.0-36.0); Mean Corpuscular Volume 82.8 fL (80.0-100.0); Monocytes # (auto) 0.3 10 ^3/uL (0-1.3); Monocytes % (auto) 3.1 % (0.0-12.0); Neutrophils # (auto) 6.5 10 ^3/uL (1.6-8.6); Neutrophils % (auto) 74.4 % (37.0-80.0); Nucleated Red Blood Cells % 0.1 %; Platelet Count (auto) 218 10^3/uL (140-450); Red Blood Cells 4.59 10^6/uL (4.0-5.20); Red Cell Distribution Width 14.2 % (11.8-14.3); White Blood Cell 8.8 10^3/uL (4.4-10.8)
[2024-05-04 07:13] LABS: Anion Gap 10 (5-15); Blood Urea Nitrogen 12 mg/dL (9-23); Carbon Dioxide 25 mmol/L (20-31); Chloride 105 mmol/L (98-107); Glucose 99 mg/dL (74-106); Potassium 3.9 mmol/L (3.5-5.1); Sodium 140 mmol/L (136-145); Total Protein 7.4 g/dL (5.7-8.2)
[2024-05-04 07:14] LABS: Alanine Aminotransferase 201 U/L (7-40); Albumin 4.9 g/dL (3.2-4.8); Alkaline Phosphatase 265 U/L (46-116); Aspartate Aminotransferase 174 U/L (13-40); Bilirubin, Total 0.7 mg/dL (0.2-1.0)
[2024-05-04] MEDS: VENLAFAXINE HCL 37.5mg XR cap PO SCH (11:58)
[2024-05-04] MEDS: FUROSEMIDE 40 MG TAB PO SCH (11:59)
[2024-05-04] MEDS: amLODIPine BESYLATE 5 MG TAB PO SCH (12:00)
[2024-05-04] MEDS: PANTOPRAZOLE 40 MG TAB PO SCH (12:01)
[2024-05-04] MEDS: TOPIRAMATE 25 MG TAB PO SCH (12:01)
--- NOTE | 2024-05-04 12:46 | DVHINCON2 ---
REASON FOR CONSULTATION: Abdominal pain, fibroid uterus. HISTORY OF PRESENT ILLNESS: The patient is a 63-year-old 4 para 4 admitted for intractable abdominal pain. The patient states she has been having vaginal bleeding. Her last Pap has been in 2023. CT reveals fibroid uterus. PAST MEDICAL HISTORY: Hypertension, anxiety, hypothyroidism, asthma, osteoarthritis. PAST SURGICAL HISTORY: Appendectomy, cholecystectomy, tubal ligation. SOCIAL HISTORY: None. FAMILY HISTORY: None. OBSTETRIC/GYNECOLOGIC HISTORY: Four normal vaginal deliveries. REVIEW OF SYSTEMS: Consistent with HPI. PHYSICAL EXAMINATION: VITAL SIGNS: Stable, afebrile. HEENT: Within normal limits. CARDIOVASCULAR: Regular rate and rhythm. LUNGS: Clear to auscultation. BREASTS: Symmetrical. No masses. ABDOMEN: Soft. Nontender. PELVIC: No vaginal bleeding. Cervix grossly normal-appearing. Uterus 12-week size. Adnexa nonpalpable. EXTREMITIES: No clubbing, cyanosis, edema. IMPRESSION: * Fibroid uterus. * Postmenopausal bleeding per history. RECOMMENDATION: The patient needs endometrial biopsy followup to rule out evidence of any endometrial cancer. The patient needs to follow up outpatient. At this point, I do not believe the pain is related to the fibroid uterus. Will need up workup outpatient. Thank you very much for this consultation. We will sign off. DO MICHELLE Marrero TID: [id number] RECEIPT: [id number]
--- NOTE | 2024-05-04 14:57 | DVH ---
INDICATION: Postmenopausal bleeding with uterine mass TECHNIQUE: Multiple real-time grayscale transabdominal sonographic images along with color and duplex Doppler of the uterus and ovaries were obtained. COMPARISON: None FINDINGS: The uterus measures 18.5 x 12.2 x 12.1 cm. There is a intrauterine mass measuring 13 cm. Th e endometrial stripe not well visualized due to obscuration from bowel gas. Bilateral ovaries are not well visualized due to obscuration from bowel gas. IMPRESSION: Heterogeneous and enlarged uterus with the largest measuring 13 cm. Endometrium is not well visualize d and likely distorted due to intrauterine fibroids.
--- NOTE | 2024-05-04 18:07 | DVHPN2 ---
Subjective feeling well in bed Changes from previous H/P or p: No Changes Eyes: No Pain, No Vision change, No Conjunctivae inflammation, No Eyelid inflammation, No Other, No Redness ENT: No Ear pain, No Ear discharge, No Nose pain, No Nose discharge, No Nose congestion, No Mouth pain, No Mouth swelling, No Throat pain, No Throat swelling, No Other Cardiovascular: No Chest Pain, No Palpitations, No Orthopnea, No Paroxysmal Noc. Dyspnea, No Edema, No Lt Headedness, No Other Respiratory: No Cough, No Dry, No Shortness of breath, No SOB with excertion, No Wheezing, No Hemoptysis, No Pleuritic Pain, No Sputum, No Other Gastrointestinal: No Nausea, No Vomiting; Abdominal Pain; No Diarrhea; C onstipation; No Melena, No Hematochezia, No Other Genitourinary: Dysuria, Frequency; No Incontinence, No Hematuria, No Retention, No Other Musculoskeletal: No other, No neck pain, No shoulder pain, No arm pain, No back pain, No hand pain, No leg pain, No foot pain Skin: No Rash, No Lesions, No Jaundice, No Bruising, No Other Objective Vitals Vital Signs Date Time Temp Pulse Resp B/P (MAP) Pulse Ox O2 Delivery O2 Flow Rate FiO2 05/04/24 17:50 97.0 73 20 123/50 (74) 98 97.0 05/03/24 20:00 0.0 21 05/03/24 18:30 Room Air* Intake/Output Intake and Output 05/04/24 07:00 Intake Total 1000 ml Balance 1000 ml Intake IV Total 1000 ml General Appearance: Oriented X3 Lungs: Clear to auscultation Cardiovascular: Regular rate, Normal S1, Normal S2 Medications Current Medications Medications Dose Ordered Sig/Dana Route Start Time Stop Time Status Last Admin Dose Admin Sodium Chloride 10 ml Q8HR IV 05/03/24 22:00 05/04/24 14:03 10 ML Acetaminophen/ Hydrocodone Bitart 1 tab Q4HP PRN PO 05/03/24 17:00 Ondansetron HCl 4 mg Q4HP PRN IV 05/03/24 17:00 Docusate Sodium 100 mg BIDPRN PRN PO 05/03/24 17:00 Acetaminophen 650 mg Q6HP PRN PO 05/03/24 17:00 Atorvastatin Calcium 40 mg HS PO 05/03/24 22:00 05/04/24 00:14 40 MG Docusate Sodium 100 mg TID PO 05/03/24 22:00 Hold Furosemide 40 mg DAILY PO 05/04/24 10:00 05/04/24 11:59 40 MG Levothyroxine Sodium 50 mcg QAM PO 05/04/24 07:00 05/04/24 06:14 50 MCG Pantoprazole Sodium 40 mg DAILY PO 05/04/24 10:00 05/04/24 12:01 40 MG Trazodone HCl 50 mg HS PO 05/03/24 22:00 05/04/24 00:14 50 MG Amlodipine Besylate 10 mg DAILY PO 05/04/24 10:00 05/04/24 12:00 10 MG Topiramate 25 mg DAILY PO 05/04/24 10:00 05/04/24 12:01 25 MG Venlafaxine HCl 150 mg DAILY PO 05/04/24 10:00 05/04/24 11:58 150 MG Diagnostic Test (Pha) 1 strip ACHS 05/03/24 22:00 05/04/24 17:00 1 STRIP Insulin Human Regular HS SC 05/03/24 22:00 Insulin Human Regular AC SC 05/04/24 07:00 Dextrose 50 ml UD PRN IV 05/03/24 17:15 Patient Own Medication 1 Q4HP PRN IN 05/03/24 17:30 Laboratory Results Laboratory Tests 05/04/24 06:13 Chemistry Test 05/04/24 06:13 Albumin 4.9 g/dL (3.2-4.8) H Calcium Level 10.0 mg/dL (8.7-10.4) Total Protein 7.4 g/dL (5.7-8.2) LFT Test 05/04/24 06:13 Alanine Aminotransferase (ALT) 201 U/L (7-40) H Alkaline Phosphatase 265 U/L (46-116) H Aspartate Amino Transferase (AST) 174 U/L (13-40) H Total Bilirubin 0.7 mg/dL (0.2-1.0) Urinalysis Test 05/03/24 12:40 Urine Color Light-yellow (Yellow) Urine Clarity Clear (Clear) Urine pH 7.0 (5.0-9.0) Urine Specific Randolph 1.011 (1.001-1.035) Urine Protein Negative (Negative) Urine Ketones Negative (Negative) Urine Blood Negative /uL (Negative) Urine Nitrite Negative (Negative) Urine Bilirubin Negative (Negative) Urine Urobilinogen Normal mg/dL (Negative) Urine Leukocyte Esterase 1+ /uL (Negative) Urine RBC 1 /hpf (0 - 4) Urine Microscopic WBC 4 /HPF (0-5) Urine Squamous Epithelial Cells Few /hpf (<5) Urine Bacteria None seen /hpf (None Seen) Urine Glucose Normal mg/dL (Normal) Assessment/Plan Assessment/Plan #transaminitis Unclear etiology will order liver us #Uterine fibroids Noted on imaging 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
[2024-05-04 19:15] VITALS: BP 126/54; PULSE 73; RESP 18; TEMP 97.6; O2SAT 98
--- NOTE | 2024-05-04 19:30 | DVH ---
INDICATION: transaminitis TECHNIQUE: Multiple real-time sonographic images were obtained of the right upper quadrant. COMPARISON: None FINDINGS: The liver demonstrates heterogeneous echotexture without focal mass lesions. There is no intrahepatic or extrahepatic ductal dilatation. Common duct is not clearly visualized. Status post cholecystectomy. The right kidney measures 9 cm and is normal in contour, size, and shape. The echogenicity is davon l. There is no hydronephrosis. The pancreas is not well visualized due to overlying bowel gas. IMPRESSION: 1. Unremarkable right upper quadrant sonogram.
[2024-05-05 10:32] LABS: Hepatitis A Ab IgM Negative; Hepatitis B Core IgM Negative (Negative); Hepatitis B Surface Antigen Negative (Negative); Hepatitis C Antibody Negative (Negative)
== END 2024-05-04 19:21 | disposition home or self-care (01) ==
LOC: ER 12:25 → UNDOADMIN 16:49 → OVERFLOW 16:49 → ER 17:03
DX: R10.84 Generalized abdominal pain (principal); K57.30 Diverticulosis of large intestine without perforation or abscess without bleeding; K59.00 Constipation, unspecified; D25.9 Leiomyoma of uterus, unspecified; E03.9 Hypothyroidism, unspecified; E11.9 Type 2 diabetes mellitus without complications; E78.5 Hyperlipidemia, unspecified; F41.9 Anxiety disorder, unspecified; I10 Essential (primary) hypertension; J45.909 Unspecified asthma, uncomplicated; M19.90 Unspecified osteoarthritis, unspecified site; Z90.49 Acquired absence of other specified parts of digestive tract; Z98.51 Tubal ligation status; Z88.6 Allergy status to analgesic agent
CPT/HCPCS: 36415; 74176; 76705; 76856; 80053; 80074; 81001; 82947; 83690; 85025; 96361; 96374; 96375; 96376; 99285; J2270; J2405; 82962; 99291; G0378

== ENCOUNTER 2024-06-20 20:10 | Inpatient (IN) | payer MEDICAID ==
[~2024-06-20] VITALS: Ht 165.1 cm; Wt 86.9 kg
[~2024-06-20 20:10] MED LIST changes: -GABA-339 PO
--- NOTE | 2024-06-20 21:25 | ED.PDOC ---
History of Present Illness HPI Comments 63-year-old female with PMHx HTN presents with a chief complaint of headache, muscle pain, and neck pain x 1 month. Patient states that shes had a headache "all my life, some days I have it, some days I don't". Patient mentions that she fell at home x 1 month ago and has had all over body pain and neck pain since then. Patient denies hitting her head, or losing consciousness from the fall. Chief Complaint: Headache Time Seen by MD: 21:20 Primary Care Provider: DR DUBON Reviewed Notes: Medications, Allergies Allergies: Coded Allergies: Aspirin (Verified Allergy, Unknown, 01/04/21) Home Meds Active Scripts Furosemide (Lasix) 40 Mg Tab, 40 MG PO DAILY for 20 Days, #20 TAB Prov:ARIANNA DUNN 12/08/23 Atorvastatin Calcium (ATORVASTATIN CALCIUM) 20 Mg Tab, 40 MG PO HS for 90 Days, #180 TAB Prov:FEMI JEWELL 06/07/23 Montelukast Sodium (MONTELUKAST SODIUM) 10 Mg Tab, 1 TAB PO DAILY PRN, #30 TAB 5 Refills Prov:ARIANNA DUNN 09/25/22 Cetirizine HCl (Eql All Day Allergy) 10 Mg Tab, 10 MG PO DAILY PRN, #30 TAB 0 Refills Prov:BETTE ROSALES 08/06/22 Hctz (Hydrochlorothiazide) 25 Mg Tab, 25 MG PO DAILY for 30 Days, #30 TAB Prov:ELIDA DEVINE MD 06/04/21 Levothyroxine Sodium (SYNTHROID TABLET) 50 Mcg Tb, 50 MCG PO QAM for 30 Days, #30 TAB Prov:ELIDA DEVINE MD 06/04/21 Reported Medications Topiramate (Topiramate) 25 Mg Cap, 25 MG PO DAILY, MG 07/24/23 Pantoprazole Sodium Sesquihydr (Protonix) 40 Mg Tab, 40 MG PO DAILY, TAB 07/24/23 Amlodipine Besylate (Amlodipine Besylate) 10 Mg Tab, 10 MG PO DAILY, TAB 07/24/23 Trazodone HCl (Trazodone Hydrochloride) 50 Mg Tab, 50 MG PO HS, TAB 07/24/23 Sumatriptan Succinate (Sumatriptan Succinate) 25 Mg Tab, 1 TAB PO DAILY PRN for MIGRAINES Take 1 tablet by mouth once a day as need for migraines. If symptoms persists or return, may repeat dose after 2 hours. 06/05/23 Fluticasone Propionate (Nasal) (Fluticasone Propionate) 50 Mcg/Act Spr, 2 SPRAY HUDSON DAILY 06/04/23 Ramelteon (Ramelteon) 8 Mg Tab, 1 TAB PO HS 06/04/23 Metformin Hydrochloride (Metformin Hcl Er) 500 Mg Tab, 1 TAB PO DAILY 06/04/23 Docusate Sodium (Docusate Sodium) 100 Mg Cap, 1 TAB PO TID 06/04/23 Acetaminophen (Acetaminophen Er) 650 Mg Tab, 1 TAB PO TID 06/04/23 Losartan Potassium (Losartan Potassium) 50 Mg Tab, 1 TAB PO DAILY 06/04/23 Venlafaxine Hcl (Venlafaxine Hcl Er) 150 Mg Cap, 1 CAP PO DAILY 06/04/23 Hydroxyzine Hcl (Hydroxyzine Hcl) 25 Mg Tab, 1 TAB PO DAILY 06/04/23 Albuterol Sulfate (Albuterol Sulfate Hfa) 108 Mcg/Act Aer, 90 MCG IN Q4HP PRN for SHORTNESS OF BREATH, AER 06/03/21 Information Source: Patient Mode of Arrival: Ambulatory Severity: Moderate Timing: Months Duration: Since onset Prehospital treatment: None Past Medical History PAST MEDICAL HISTORY: Anxiety, Arthritis, Asthma, Depression, DM, High Lipids, HTN, Thyroid Surgical History: Appendectomy, Cholecystectomy, Tubal Ligation 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 ANALYST History: No Pertinent BALANCE SHEET ANALYST History Family History Family History: Reviewed,noncontributory to illness, Family hx of HTN Social History Smoker: Non-Smoker Alcohol: Denies ETOH Use Drugs: Denies Drug Use Lives In: Home Constitutional: denies: chills, diaphoresis, fatigue, fever, malaise, sweats, weakness, others EENTM: denies: blurred vision, double vision, ear bleeding, ear discharge, ear drainage, ear pain, ear ringing, eye pain, eye redness, hearing loss, mouth pain, mouth swelling, nasal discharge, nose bleeding, nose congestion, nose pain, photophobia, tearing, throat pain, throat swelling, voice changes, others Respiratory: denies: cough, hemoptysis, orthopnea, SOB at rest, shortness of breath, SOB with excertion, stridor, wheezing, others Cardiovascular: denies: chest pain, dizzy spells, diaphoresis, Dyspnea on exertion, edema, irregular heart beat, left arm pain, lightheadedness, palpitations, PND, syncope, others Gastrointestinal: denies: abdomen distended, abdominal pain, blood streaked bowels, constipated, diarrhea, dysphagia, difficulty swallowing, hematemesis, melena, nausea, poor appetite, poor fluid intake, rectal bleeding, rectal pain, vomiting, others Genitourinary: denies: abnormal vagina bleeding, burning, dyspareunia, dysuria, flank pain, frequency, hematuria, incontinence, pain, , vagina discharge, urgency, others Neurological: reports: headache; denies: dizziness, fainting, left sided numbness, left sided weakness, numbness, paresthesia, pre-existing deficit, right sided numbness, right sided weakness, seizure, speech problems, tingling, tremors, weakness, others Musculoskeletal: reports: muscle pain, neck pain; denies: back pain, gout, joint pain, joint swelling, muscle stiffness, others Integumetry: denies: bruises, change in color, change in hair/nails, dryness, laceration, lesions, lumps, rash, wounds, others Allergic/Immunocompromised: denies: Difficulty Healing, Frequent Infections, Hives, Itching, others Hematologic/Lymphatic: denies: anemia, blood clots, easy bleeding, easy bruising, swollen glands, others Endocrine: denies: excessive hunger, excessive sweating, excessive thirst, excessive urination, flushing, intolerance to cold, intolerance to heat, unexplained weight gain, unexplained weight loss, others Psychiatric: denies: anxiety, bipolar disorder, depression, hopeless, panic disorder, schizophrenia, sleepless, suicidal, others All Other Systems: Reviewed and Negative Physical Exam General Appearance: No Apparent Distress, Normal HEENT: Normal ENT Inspection, Pharynx Normal, TMs Normal Neck: Full Range of Motion, Non-Tender, Normal, Normal Inspection Respiratory: Chest Non-Tender, Lungs Clear, No Accessory Muscle Use, No Respiratory Distress, Normal Breath Sounds Cardiovascular: No Edema, No JVD, No Murmur, No Gallop, Normal Peripheral Pulses, Regular Rate/Rhythm Breast Exam: Deferred Gastrointestinal: No Organomegaly, Non Tender, No Pulsatile Mass, Normal Bowel Sounds, Soft Genitalia: Deferred Pelvic: Deferred Rectal: Deferred Extremities: No calf tenderness, Normal capillary refill, Normal inspection, Normal range of motion, Non-tender, No pedal edema Musculoskeletal : Apperance: Normal Neurologic: Alert, grain sampler II-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 Was a procedure done?: No Differential Dx Considerations may include: Migraine, electrolyte abnormality, ACS, CVA, viral syndrome X-Ray, Labs, Meds, VS Vital Signs Date Time Temp Pulse Resp B/P (MAP) Pulse Ox O2 Delivery O2 Flow Rate FiO2 06/20/24 20:39 98.1 73 18 138/72 (94) 98 98.1 Lab Test 06/20/24 22:43 06/20/24 21:42 Range/Units Troponin I High Sensitivity 3 L < 3 L </=34 ng/L White Blood Count 7.5 4.4-10.8 10^3/uL Red Blood Count 4.72 4.0-5.20 10^6/uL Hemoglobin 13.3 12.2-16.2 g/dL Hematocrit 39.1 36.0-46.0 % Mean Corpuscular Volume 82.8 80.0-100.0 fL Mean Corpuscular Hemoglobin 28.1 28.0-32.0 pg Mean Corpuscular Hemoglobin Concent 34.0 32.0-36.0 g/dL Red Cell Distribution Width 14.0 11.8-14.3 % Platelet Count 238 140-450 10^3/uL Mean Platelet Volume 8.1 6.9-10.8 fL Neutrophils (%) (Auto) 45.8 37.0-80.0 % Lymphocytes (%) (Auto) 45.7 10.0-50.0 % Monocytes (%) (Auto) 4.2 0.0-12.0 % Eosinophils (%) (Auto) 3.1 0.0-7.0 % Basophils (%) (Auto) 1.2 0.0-2.0 % Neutrophils # (Auto) 3.4 1.6-8.6 10 ^3/uL Lymphocytes # (Auto) 3.4 0.4-5.4 10 ^3/uL Monocytes # (Auto) 0.3 0-1.3 10 ^3/uL Eosinophils # (Auto) 0.2 0-0.8 10 ^3/uL Basophils # (Auto) 0.1 0-0.2 10 ^3/uL Nucleated Red Blood Cells 0.1 % Sodium Level 143 136-145 mmol/L Potassium Level 3.7 3.5-5.1 mmol/L Chloride Level 109 H 98-107 mmol/L Carbon Dioxide Level 25 20-31 mmol/L Anion Gap 9 5-15 Blood Urea Nitrogen 11 9-23 mg/dL Creatinine 0.62 0.550-1.02 mg/dL Glomerular Filtration Rate Calc 101 >90 mL/min BUN/Creatinine Ratio 17.7 10.0-20.0 Serum Glucose 98 74-106 mg/dL Calcium Level 9.5 8.7-10.4 mg/dL B-Type Natriuretic Peptide 14.18 0-100 pg/mL Time of 1ST Reevaluation: 21:50 Reevaluation 1ST: Unchanged Patient Education/Counseling: Diagnosis, Treatment Family Education/Counseling: No Family Present Departure 1 Departure Time of Disposition: 23:51 (Patient presents with intractable migraine generalized weakness. Workup so far is benign including negative CT scan benign labs. We will admit patient for further workup and has been consultation) Impression: Primary Impression: Migraine Qualified Codes: G43.119 - Migraine with aura, intractable, without status migrainosus Additional Impression: Generalized weakness Disposition: ADMITTED INPATIENT Admit to: Med Surg Condition: Serious Critical Care Note Critical Care Time?: No Stability Stability form required: No Heart Score Heart Score: Heart Score Response (Comments) Value History N/A 0 EKG N/A 0 Age N/A 0 Risk Factors N/A 0 Troponin N/A 0 Total 0 I personally scribed for ANDREINA CHANG MD ([email or web address]) on 06/20/24 at 21:25. Electronically submitted by Mukesh Viera ([email or web address]). ANDREINA CHANG MD Jun 20, 2024 21:25
[2024-06-20] MEDS: ACETAMINOPHEN 325 MG TAB PO ONE (21:30)
--- NOTE | 2024-06-20 21:51 | DVH ---
EXAM: XY CHEST PORTABLE TECHNIQUE: Single frontal chest radiograph CLINICAL HISTORY: fall COMPARISON: XY CHEST PORTABLE on DOS: 02/07/24, XY CHEST XRAY 1 VIEW on DOS: 12/07/23, XY CHEST PORTABL E on DOS: 07/23/23 Findings/Impression: Frontal chest radiograph demonstrates no acute osseous or superficial soft tissue abnormalities. The trachea is midline. The cardiac silhouette and mediastinum are within normal limits. No pneumothorax, pleural effusions, or consolidations.
--- NOTE | 2024-06-20 21:52 | DVH ---
EXAM: CT HEAD WITHOUT CONTRAST INDICATION: fall TECHNIQUE: CT of the head without intravenous contrast. Radiation Dose : 1. Head: CT Dose: CTDI volume is 50.22 mGy. Dose-length product is 1106.31 mGy*cm The dose indicators for CT are the volume Computed Tomography (CT) Dose Index (CTDIvol) and the Dose Length Product (DLP), and are measured in units of mGy and mGy-cm, respectively. These indicators are not patient dose, but values generated from the CT scanner acquisition factors. The report includes radiation exposure data for exposures received during this examination. COMPARISON: CT HEAD WITHOUT CONTRAST on DOS: 06/04/23, CT HEAD WITHOUT CONTRAST on DOS: 04/19/23 FINDINGS: There is no evidence of acute intracranial hemorrhage, extra-axial collection, mass effect, midline s hift, herniation or hydrocephalus. The ventricles, sulci and cisterns are age appropriate. The pro-white differentiation is intact. Patchy periventricular and subcortical white matter hypoattenuation is nonspecific but may be related to small vessel ischemic disease. The visualized paranasal sinuses and mastoid air cells are clear. The surrounding soft tissues and osseous structures are unremarkable. IMPRESSION: 1. No acute intracranial abnormality. Radiation optimization: All CT scans at this facility use at least one of these dose optimization lucius hniques: automated exposure control mA and/or kV adjustment per patient size (includes targeted exam s where dose is matched to clinical indication) or iterative reconstruction.
[2024-06-20 21:56] LABS: Basophils # (auto) 0.1 10 ^3/uL (0-0.2); Basophils % (auto) 1.2 % (0.0-2.0); Eosinophils # (auto) 0.2 10 ^3/uL (0-0.8); Eosinophils % (auto) 3.1 % (0.0-7.0); Hematocrit 39.1 % (36.0-46.0); Hemoglobin 13.3 g/dL (12.2-16.2); Lymphocytes # (auto) 3.4 10 ^3/uL (0.4-5.4); Lymphocytes % (auto) 45.7 % (10.0-50.0); Mean Corpuscular Hemoglobin 28.1 pg (28.0-32.0); Mean Corpuscular Volume 82.8 fL (80.0-100.0); Monocytes # (auto) 0.3 10 ^3/uL (0-1.3); Monocytes % (auto) 4.2 % (0.0-12.0); Neutrophils # (auto) 3.4 10 ^3/uL (1.6-8.6); Neutrophils % (auto) 45.8 % (37.0-80.0); Nucleated Red Blood Cells % 0.1 %; Platelet Count (auto) 238 10^3/uL (140-450); Red Blood Cells 4.72 10^6/uL (4.0-5.20); White Blood Cell 7.5 10^3/uL (4.4-10.8)
[2024-06-20 22:07] LABS: Potassium 3.7 mmol/L (3.5-5.1); Sodium 143 mmol/L (136-145)
[2024-06-20 22:08] LABS: Anion Gap 9 (5-15); Calcium 9.5 mg/dL (8.7-10.4); Carbon Dioxide 25 mmol/L (20-31)
[2024-06-20 22:13] LABS: BUN/Creatinine Ratio 17.7 (10.0-20.0); Blood Urea Nitrogen 11 mg/dL (9-23); Glucose 98 mg/dL (74-106)
[2024-06-20 22:39] LABS: Chloride 109 mmol/L (98-107)
[2024-06-21] MEDS ORDERED: ACETAMINOPHEN 325 MG TAB PO PRN (01:15)
[2024-06-21] MEDS ORDERED: DEXTROSE (50%) 50ML SYRG IV PRN (01:15)
--- NOTE | 2024-06-21 03:02 | DVHHP2 ---
History of Present Illness Reason for Visit: Headache History of Present Illness 63-year-old female presents for evaluation of a headache. Patient reports having a diffuse headache for approximately one month. She states the symptoms are intermittent. She reports that yesterday symptoms were more constant with associated nausea and dizziness. Denies blurred vision or unilateral weakness. No cardiac or respiratory complaints. Past Medical History Asthma, diabetes mellitus, dyslipidemia, hypertension, thyroid Past Surgical History Cholecystectomy, tubal ligation and appendectomy Family History Noncontributory Smoke: No ALCOHOL: none Drugs: None Lives: with Family Review of Systems Review of Systems Review of systems are currently negative otherwise addressed in HPI. Allergies: Coded Allergies: Aspirin (Verified Allergy, Unknown, 01/04/21) Medications Current Medications Medications Dose Ordered Sig/Dana Route Start Time Stop Time Status Last Admin Dose Admin Atorvastatin Calcium 40 mg HS PO 06/21/24 22:00 Amlodipine Besylate 10 mg DAILY PO 06/21/24 10:00 Furosemide 40 mg DAILY PO 06/21/24 10:00 Levothyroxine Sodium 50 mcg QAM@0600 PO 06/21/24 06:00 Sumatriptan Succinate 50 mg Q2HP PRN PO 06/21/24 01:15 Topiramate 25 mg BID PO 06/21/24 10:00 Acetaminophen/ Hydrocodone Bitart 1 tab Q4HP PRN PO 06/21/24 01:15 Ondansetron HCl 4 mg Q4HP PRN IV 06/21/24 01:15 Acetaminophen 650 mg Q6HP PRN PO 06/21/24 01:15 Diagnostic Test (Pha) 1 strip ACHS 06/21/24 07:00 Insulin Human Regular ACHS SC 06/21/24 07:00 Dextrose 50 ml UD PRN IV 06/21/24 01:15 Exam Vital Signs Vital Signs Date Time Temp Pulse Resp B/P (MAP) Pulse Ox O2 Delivery O2 Flow Rate FiO2 06/20/24 20:39 98.1 73 18 138/72 (94) 98 98.1 Exam Gen: 63-year-old female in no apparent distress Skin: Warm, dry, normal color and texture, no rash. HEENT: Normocephalic atraumatic, mucous membranes moist and pink. Neck: Cervical and supraclavicular nodes normal without enlargement, trachea is midline, thyroid gland is normal without masses. Pulmonary: Clear to auscultation and percussion bilaterally. Cardiac: Regular rate and rhythm. No murmur Abdomen: Soft, nontender, nondistended, bowel sounds present all 4 quadrants, no guarding, no rigidity, no organomegaly. Extremities: No cyanosis, clubbing, no edema Neuro: Cranial nerves II through XII grossly intact, normal affect and speech, no focal motor deficits. Labs/Xrays ORDERING PHYSICIAN: ANDREINA CHANG MD PROCEDURE(s): CXRP - CHEST PORTABLE REASON: fall ORDER NUMBER(s): [id number], ACCESSION NUMBER(s): [id number] EXAM: XY CHEST PORTABLE TECHNIQUE: Single frontal chest radiograph CLINICAL HISTORY: fall COMPARISON: XY CHEST PORTABLE on DOS: 02/07/24, XY CHEST XRAY 1 VIEW on DOS: 12/07/23, XY CHEST PORTABLE on DOS: 07/23/23 Findings/Impression: Frontal chest radiograph demonstrates no acute osseous or superficial soft tissue abnormalities. The trachea is midline. The cardiac silhouette and mediastinum are within normal limits. No pneumothorax, pleural effusions, or consolidations. RING PHYSICIAN: ANDREINA CHANG MD PROCEDURE(s): HWOCT - HEAD WITHOUT CONTRAST REASON: fall ORDER NUMBER(s): [id number], ACCESSION NUMBER(s): [id number] EXAM: CT HEAD WITHOUT CONTRAST INDICATION: fall TECHNIQUE: CT of the head without intravenous contrast. Radiation Dose : 1. Head: CT Dose: CTDI volume is 50.22 mGy. Dose-length product is 1106.31 mGy*cm The dose indicators for CT are the volume Computed Tomography (CT) Dose Index (CTDIvol) and the Dose Length Product (DLP), and are measured in units of mGy and mGy-cm, respectively. These indicators are not patient dose, but values generated from the CT scanner acquisition factors. The report includes radiation exposure data for exposures received during this examination. COMPARISON: CT HEAD WITHOUT CONTRAST on DOS: 06/04/23, CT HEAD WITHOUT CONTRAST on DOS: 04/19/23 FINDINGS: There is no evidence of acute intracranial hemorrhage, extra-axial collection, mass effect, midline shift, herniation or hydrocephalus. The ventricles, sulci and cisterns are age appropriate. The pro-white differentiation is intact. Patchy periventricular and subcortical white matter hypoattenuation is n onspecific but may be related to small vessel ischemic disease. The visualized paranasal sinuses and mastoid air cells are clear. The surrounding soft tissues and osseous structures are unremarkable. IMPRESSION: 1. No acute intracranial abnormality. Radiation optimization: All CT scans at this facility use at least one of these dose optimization techniques: automated exposure control mA and/or kV adjustment per patient size (includes targeted exams where dose is matched to clinical indication) or iterative reconstruction. Labs Test 06/21/24 00:36 06/20/24 21:42 Range/Units Troponin I High Sensitivity < 3 L </=34 ng/L White Blood Count 7.5 4.4-10.8 10^3/uL Red Blood Count 4.72 4.0-5.20 10^6/uL Hemoglobin 13.3 12.2-16.2 g/dL Hematocrit 39.1 36.0-46.0 % Mean Corpuscular Volume 82.8 80.0-100.0 fL Mean Corpuscular Hemoglobin 28.1 28.0-32.0 pg Mean Corpuscular Hemoglobin Concent 34.0 32.0-36.0 g/dL Red Cell Distribution Width 14.0 11.8-14.3 % Platelet Count 238 140-450 10^3/uL Mean Platelet Volume 8.1 6.9-10.8 fL Neutrophils (%) (Auto) 45.8 37.0-80.0 % Lymphocytes (%) (Auto) 45.7 10.0-50.0 % Monocytes (%) (Auto) 4.2 0.0-12.0 % Eosinophils (%) (Auto) 3.1 0.0-7.0 % Basophils (%) (Auto) 1.2 0.0-2.0 % Neutrophils # (Auto) 3.4 1.6-8.6 10 ^3/uL Lymphocytes # (Auto) 3.4 0.4-5.4 10 ^3/uL Monocytes # (Auto) 0.3 0-1.3 10 ^3/uL Eosinophils # (Auto) 0.2 0-0.8 10 ^3/uL Basophils # (Auto) 0.1 0-0.2 10 ^3/uL Nucleated Red Blood Cells 0.1 % Sodium Level 143 136-145 mmol/L Potassium Level 3.7 3.5-5.1 mmol/L Chloride Level 109 H 98-107 mmol/L Carbon Dioxide Level 25 20-31 mmol/L Anion Gap 9 5-15 Blood Urea Nitrogen 11 9-23 mg/dL Creatinine 0.62 0.550-1.02 mg/dL Glomerular Filtration Rate Calc 101 >90 mL/min BUN/Creatinine Ratio 17.7 10.0-20.0 Serum Glucose 98 74-106 mg/dL Calcium Level 9.5 8.7-10.4 mg/dL B-Type Natriuretic Peptide 14.18 0-100 pg/mL Assessment/Plan Assessment/Plan Assessment Intractable headache Diabetes mellitus Hypertension Plan Admit the patient to [facility] to the hospitalist MRI of the brain pending Resume home medications Continue treatment per orders. Plan discussed with: Patient My Orders Orders - IDANIA ANAYA AGACNP Procedure Category Date Status Time Atorvastatin (Lipitor) PHA 06/21/24 In Process 22:00 Amlodipine Tablet PHA 06/21/24 In Process (Norvasc Tablet) 10:00 Furosemide Tablet PHA 06/21/24 In Process (Lasix Tablet) 10:00 Levothyroxine Tablet PHA 06/21/24 In Process (Synthroid Tablet) 06:00 Sumatriptan Succinate PHA 06/21/24 In Process Tablet (Imitrex Ta 01:15 Topiramate (Topamax) PHA 06/21/24 In Process 10:00 Brain Head Wo Contrast MRI 06/21/24 Logged 01:05 Admit ADMIT 06/21/24 Transmitted 01:05 Hydrocodone-Acet PHA 06/21/24 In Process 5/325mg Tab ([place] 01:15 Ondansetron Hcl PHA 06/21/24 In Process (Zofran) 01:15 Cardiac DIET 06/21/24 Transmitted Diet-2gna,Lofat,Lochol Breakfast Condition: Stable EDITH 06/21/24 In Process 01:05 Acetaminophen Tablet PHA 06/21/24 In Process (Tylenol Tablet) 01:15 Bedrest With Bathroom EDITH 06/21/24 In Process Privileg 01:05 Glucose Blood PHA 06/21/24 In Process (Accu-Chek Comfort 07:00 Insulin R (Human) PHA 06/21/24 In Process (Insulin R) 07:00 Dextrose 50% Syringe PHA 06/21/24 In Process 01:15 Date of Service: Jun 20, 2024 Billing Provider: IDANIA ANAYA Common Visit Codes: [id number] INP/OBS CARE (MOD) IDANIA ANAYA Jun 21, 2024 03:02
[2024-06-21 04:03] VITALS: PULSE 54; RESP 17; O2SAT 97
[2024-06-21] MEDS: SODIUM CHLORIDE 0.9% 1,000 ML IV ONE (04:38)
[2024-06-21] MEDS: METOCLOPRAMIDE HCL 5MG/ml INJ 2ml VIAL IV ONE (04:38)
[2024-06-21] MEDS: HYDROcodone-ACET 5/325MG TAB PO PRN (04:40)
[2024-06-21] MEDS: LEVOTHYROXINE SODIUM 50 MCG TAB PO SCH (05:30)
[2024-06-21] MEDS: InsuLIN REG 1unit/0.01ml Soln (100units/ml) SC SCH (06:32)
[2024-06-21] MEDS: ACCU-CHEK COMFORT CURVE STRIP VI SCH (06:32)
[2024-06-21 07:56] VITALS: PULSE 63; RESP 16; O2SAT 99
[2024-06-21] MEDS: SUMAtriptan SUCCINATE 25 MG TAB PO PRN (08:04)
--- NOTE | 2024-06-21 08:51 | DVH ---
MRI BRAIN HEAD WO CONTRAST INDICATION: headache : 63 old Female headache EXAM DATE: 06/21/2024 08:09 AM COMPARISON: MRI BRAIN HEAD WO CONTRAST on DOS: 06/06/23 PROCEDURE: Using a 1.5 Pascale scanner, multisequence multiplanar imaging of the brain was obtained. FINDINGS: The brainshows normal morphology and signal characteristics. No abnormal T2 hyperintensity, diffusion restriction, or susceptibility hypointensity is present. The ventricles are normal in size . The midline structures are intact. The major intracranial flow voids are present. The aerated space s are normal. The orbital contents and extracranial soft tissues appear normal. IMPRESSION: No acute abnormal MRI findings of the brain.
[2024-06-21] MEDS: TOPIRAMATE 25 MG TAB PO SCH (11:07)
[2024-06-21] MEDS: FUROSEMIDE 40 MG TAB PO SCH (11:07)
[2024-06-21] MEDS: amLODIPine BESYLATE 5 MG TAB PO SCH (11:07)
--- NOTE | 2024-06-21 11:55 | DVHPN2 ---
Subjective The patient is seen and examined at bedside. Still complain of headache. Reviewed: Care Plan, H&P, Labs, Medications, Previous Orders, Radiology Changes from previous H/P or p: No Changes Objective Vitals Vital Signs Date Time Temp Pulse Resp B/P (MAP) Pulse Ox O2 Delivery O2 Flow Rate FiO2 06/21/24 11:07 143/59 06/21/24 11:01 58 16 97 06/21/24 07:56 Room Air* 0 21 06/21/24 07:56 97.6 97.6 General Appearance: Alert, Cooperative, No acute distress HEENT: Atraumatic, PERRLA, EOMI, Mucous membr. moist/pink Neck: Supple Cardiovascular: Regular rate, Normal S1, Normal S2, No murmurs, Gallops, Rubs Abdomen: Normal bowel sounds, Soft, No tenderness Neuro: Cranial nerves 3-12 NL Psych/Mental Status: Mental status NL Medications Current Medications Medications Dose Ordered Sig/Dana Route Start Time Stop Time Status Last Admin Dose Admin Atorvastatin Calcium 40 mg HS PO 06/21/24 22:00 Amlodipine Besylate 10 mg DAILY PO 06/21/24 10:00 06/21/24 11:07 10 MG Furosemide 40 mg DAILY PO 06/21/24 10:00 06/21/24 11:07 40 MG Levothyroxine Sodium 50 mcg QAM@0600 PO 06/21/24 06:00 06/21/24 05:30 50 MCG Sumatriptan Succinate 50 mg Q2HP PRN PO 06/21/24 01:15 06/21/24 08:04 50 MG Topiramate 25 mg BID PO 06/21/24 10:00 06/21/24 11:07 25 MG Acetaminophen/ Hydrocodone Bitart 1 tab Q4HP PRN PO 06/21/24 01:15 06/21/24 04:40 1 TAB Ondansetron HCl 4 mg Q4HP PRN IV 06/21/24 01:15 Acetaminophen 650 mg Q6HP PRN PO 06/21/24 01:15 Diagnostic Test (Pha) 1 strip ACHS 06/21/24 07:00 06/21/24 06:32 1 STRIP Insulin Human Regular ACHS SC 06/21/24 07:00 Dextrose 50 ml UD PRN IV 06/21/24 01:15 Laboratory Results Laboratory Tests 06/20/24 21:42 Chemistry Test 06/20/24 21:42 Calcium Level 9.5 mg/dL (8.7-10.4) Cardiac Markers Test 06/20/24 21:42 B-Type Natriuretic Peptide 14.18 pg/mL (0-100) Labs and/or images reviewed: Labs reviewed by me Assessment/Plan Assessment/Plan Intractable headache Diabetes mellitus Hypertension Continuing current management. Continuing with sliding scale insulin. Continuing with pain medication. Continuing with hypertensive medication. Waiting for neurologist to see the patient. This medical document was created using an electronic medical record system with [employer] computerized dictation system. Although this document has been carefully reviewed, there may still be some phonetic and typographical errors. These areas are purely typographical due to imperfections of the software programs, and do not reflect any compromise in the patient's medical care. Plan discussed with: Patient Date of Service: Jun 21, 2024 Billing Provider: SUE GALLEGO MD Common Visit Codes: [id number] INP/OBS CARE(HIGH) SUE GALLEGO MD Jun 21, 2024 11:55
[2024-06-21] MEDS: ONDANSETRON HCL 4 MG/2 ML VIAL IV PRN (14:47)
[2024-06-21 20:36] LABS: Urine Bacteria None Seen /hpf (None Seen)
[2024-06-21 20:42] LABS: Urine Blood Negative /uL (Negative); Urine Clarity Clear (Clear); Urine Color Light-Yellow (Yellow); Urine Protein, UAD Negative (Negative); Urine Squamous Epithelial Cell None Seen /hpf (<5); Urine Urobilinogen Normal (Negative); Urine WBC < 1 /HPF (0-5)
[2024-06-21 21:27] VITALS: BP 121/62; PULSE 67; RESP 16; TEMP 77.7; TEMP 97.7; O2SAT 96
[2024-06-21] MEDS ORDERED: TRAZ-184 PO (22:00)
[2024-06-21] MEDS ORDERED: FURO20TA4 PO (22:00)
[2024-06-21] MEDS ORDERED: ASPI1TAB20 PO (22:00)
[2024-06-21] MEDS ORDERED: MONT-8 PO (22:00)
[2024-06-21] MEDS ORDERED: PANT40T PO (22:00)
[2024-06-21] MEDS ORDERED: HYDR1CAP27 PO (22:00)
[2024-06-21] MEDS ORDERED: TOPI25TA84 PO (22:00)
[2024-06-21] MEDS ORDERED: VENL225T20 PO (22:00)
[2024-06-21] MEDS ORDERED: LEVO50TA7 PO (22:00)
[2024-06-21] MEDS: ATORVASTATIN 20 MG TAB PO SCH (23:15)
[2024-06-22 01:11] VITALS: BP 118/59; PULSE 65; RESP 14; TEMP 97.7; O2SAT 96
[2024-06-22 05:16] VITALS: BP 104/53; PULSE 63; RESP 14; TEMP 97.7; O2SAT 96
[2024-06-22 08:15] VITALS: BP 115/63; PULSE 73; RESP 17; TEMP 98.1; O2SAT 96
--- NOTE | 2024-06-22 11:00 | DVHPN2 ---
Subjective The patient is seen and examined at bedside. Still complain of headache. Reviewed: Care Plan, H&P, Labs, Medications, Previous Orders, Radiology Changes from previous H/P or p: No Changes Objective Vitals Vital Signs Date Time Temp Pulse Resp B/P (MAP) Pulse Ox O2 Delivery O2 Flow Rate FiO2 06/22/24 10:59 115/63 06/22/24 08:15 98.1 73 17 96 98.1 06/21/24 21:27 Room Air* 0 21 Intake/Output Intake and Output 06/22/24 07:00 Intake Total 200 ml Balance 200 ml Intake Oral 200 ml # Voids 2 # Bowel Movements 1 General Appearance: Alert, Cooperative, No acute distress HEENT: Atraumatic, PERRLA, EOMI, Mucous membr. moist/pink Neck: Supple Cardiovascular: Regular rate, Normal S1, Normal S2, No murmurs, Gallops, Rubs Abdomen: Normal bowel sounds, Soft, No tenderness Neuro: Cranial nerves 3-12 NL Psych/Mental Status: Mental status NL Medications Current Medications Medications Dose Ordered Sig/Dana Route Start Time Stop Time Status Last Admin Dose Admin Atorvastatin Calcium 40 mg HS PO 06/21/24 22:00 06/21/24 23:15 40 MG Amlodipine Besylate 10 mg DAILY PO 06/21/24 10:00 06/22/24 10:59 10 MG Furosemide 40 mg DAILY PO 06/21/24 10:00 06/22/24 10:59 40 MG Levothyroxine Sodium 50 mcg QAM@0600 PO 06/21/24 06:00 06/22/24 05:27 50 MCG Sumatriptan Succinate 50 mg Q2HP PRN PO 06/21/24 01:15 06/21/24 08:04 50 MG Topiramate 25 mg BID PO 06/21/24 10:00 06/22/24 10:59 25 MG Acetaminophen/ Hydrocodone Bitart 1 tab Q4HP PRN PO 06/21/24 01:15 06/21/24 04:40 1 TAB Ondansetron HCl 4 mg Q4HP PRN IV 06/21/24 01:15 06/21/24 14:47 4 MG Acetaminophen 650 mg Q6HP PRN PO 06/21/24 01:15 Diagnostic Test (Pha) 1 strip ACHS 06/21/24 07:00 06/21/24 23:16 1 STRIP Insulin Human Regular ACHS SC 06/21/24 07:00 Dextrose 50 ml UD PRN IV 06/21/24 01:15 Laboratory Results Laboratory Tests 06/20/24 21:42 Urinalysis Test 06/21/24 18:49 Urine Color Light-yellow (Yellow) Urine Clarity Clear (Clear) Urine pH 6.0 (5.0-9.0) Urine Specific [place] 1.010 (1.001-1.035) Urine Protein Negative (Negative) Urine Ketones Negative (Negative) Urine Blood Negative /uL (Negative) Urine Nitrite Negative (Negative) Urine Bilirubin Negative (Negative) Urine Urobilinogen Normal mg/dL (Negative) Urine Leukocyte Esterase Negative /uL (Negative) Urine RBC <1 /hpf (0 - 4) Urine Microscopic WBC < 1 /HPF (0-5) Urine Squamous Epithelial Cells None seen /hpf (<5) Urine Bacteria None seen /hpf (None Seen) Urine Glucose Normal mg/dL (Normal) Labs and/or images reviewed: Labs reviewed by me Assessment/Plan Assessment/Plan Intractable headache Diabetes mellitus Hypertension Continuing current management. Continuing with sliding scale insulin. Continuing with pain medication. Continuing with hypertensive medication. MRI is normal. No acute process Waiting for neurologist to see the patient. This medical document was created using an electronic medical record system with [employer] computerized dictation system. Although this document has been carefully reviewed, there may still be some phonetic and typographical errors. These areas are purely typographical due to imperfections of the software programs, and do not reflect any compromise in the patient's medical care. Plan discussed with: Patient My Orders Orders - SUE GALLEGO MD Procedure Category Date Status Time * Neurology Consult CONS 06/22/24 Transmitted 04:17 Date of Service: Jun 22, 2024 Billing Provider: SUE GALLEGO MD Common Visit Codes: [id number] INP/OBS CARE(HIGH) SUE GALLEGO MD Jun 22, 2024 11:00
[2024-06-22 12:45] VITALS: BP 123/62; PULSE 76; RESP 16; TEMP 98; O2SAT 96
[2024-06-22 16:15] VITALS: BP 127/54; PULSE 65; RESP 16; TEMP 97.4; O2SAT 97
[2024-06-22 21:00] VITALS: BP 129/66; PULSE 67; RESP 18; TEMP 98.5; O2SAT 97
[2024-06-23 01:00] VITALS: BP 144/54; PULSE 56; RESP 17; TEMP 98.1; O2SAT 98
[2024-06-23 05:00] VITALS: BP 120/53; PULSE 64; RESP 19; TEMP 97.7; O2SAT 97
[2024-06-23 08:00] VITALS: PULSE 73; RESP 16; O2SAT 94
[2024-06-23 08:40] VITALS: BP 116/68; PULSE 73; RESP 16; TEMP 97.5; O2SAT 94
[2024-06-23 12:40] VITALS: BP 119/58; PULSE 64; RESP 16; TEMP 98; O2SAT 98
[2024-06-23] MEDS: DOCUSATE SOD 100 MG CAP PO SCH (12:43)
[2024-06-23] MEDS: VENLAFAXINE HCL 37.5MG TABLET PO ONE (12:45)
[2024-06-23 13:49] VITALS: BP 119/58; PULSE 64; RESP 16; TEMP 98; O2SAT 98
== END 2024-06-23 15:06 | disposition home or self-care (01) | DRG 54 ==
LOC: ER 20:10 → OVERFLOW 06-21 01:05 → EAST 06-21 21:25
PROVIDERS: ADMIT Internal Medicine; ATTEND Internal Medicine
DX: G43.119 Migraine with aura, intractable, without status migrainosus (principal); E11.9 Type 2 diabetes mellitus without complications; I10 Essential (primary) hypertension; E78.5 Hyperlipidemia, unspecified; J45.909 Unspecified asthma, uncomplicated; Z98.51 Tubal ligation status; Z88.6 Allergy status to analgesic agent; Z79.84 Long term (current) use of oral hypoglycemic drugs; Z79.899 Other long term (current) drug therapy; Z90.49 Acquired absence of other specified parts of digestive tract
CPT/HCPCS: 36415; 70450; 70551; 71045; 80048; 81001; 82962; 83880; 84484; 85025; G0378; J2405

== ENCOUNTER 2024-07-13 20:12 | Emergency (ER) | payer MEDICAID ==
[~2024-07-13] VITALS: Ht 165.1 cm; Wt 77.2 kg
[~2024-07-13 20:12] MED LIST changes: -ALBU108A5 IN; +ASPI1TAB20 PO; -FLUT50SP NAS; -FURO1TAB31 PO; +FURO20TA4 PO; -HYDR-3682 PO; +HYDR1CAP27 PO; -HYDR25TA5 PO; -LEVO-848 PO; +LEVO50TA7 PO; -LOSA-534 PO; +PANT40T PO; -PANT40TA2 PO; -SUMA25TA2 PO; -TOPI25CA5 PO; +TOPI25TA84 PO; -TRAZ-181 PO; +TRAZ-184 PO; -VENL150C58 PO; +VENL225T20 PO
--- NOTE | 2024-07-13 20:36 | ED.PDOC ---
HPI (NEURO) HPI Comments 63 year old female presents to the ED with a chief complaint of LT sided weakness onset today (07/13/24) around 18:30. Patient states she experienced CVA in 2022. She began experiencing LT sided weakness with tingling, headache, blurred vision, slurred speech since 16:30. PMHx CVA, HTN, DM, HLD, depression, anxiety, asthma, thyroid. Denies chest pain, shortness of breath, dizziness, nausea, vomiting, diarrhea, fevers, chills. No other symptoms or modifying factors present at this time. Chief Complaint: Left Sided Weakness Time Seen by MD: 20:30 Primary Care Provider: DR DUBON Reviewed Notes: Medications, Allergies Information Source: Patient Mode of Arrival: Ambulatory Severity: Moderate Headache Severity: Moderate Timing: Hours Duration: Since onset Prehospital treatment: None Headache Quality: Sharp Headache Location: Generalized Weakness Location: (L) Sided Numbness Location: (L) Sided Onset: At rest Circumstances: Spontaneous Symptoms: Weakness, Numbness, Change of vision, Slurred speech Before: Normal History of: CVA, Hypertension Modifying factors: Nothing Associated Signs and Symptoms: Headache, Weakness, Numbness, Blurred Vision Past Medical History PAST MEDICAL HISTORY: Anxiety, Arthritis, Asthma, CVA, Depression, DM, High Lipids, HTN, Thyroid Surgical History: Appendectomy, Cholecystectomy, Tubal Ligation GLACING MACHINE TENDER History: No Pertinent GLACING MACHINE TENDER History Family History Family History: Reviewed,noncontributory to illness, Family hx of HTN Social History Smoker: Non-Smoker Alcohol: Denies ETOH Use Drugs: Denies Drug Use Lives In: Home Constitutional: denies: chills, diaphoresis, fatigue, fever, malaise, sweats, weakness, others EENTM: reports: blurred vision; denies: double vision, ear bleeding, ear discharge, ear drainage, ear pain, ear ringing, eye pain, eye redness, hearing loss, mouth pain, mouth swelling, nasal discharge, nose bleeding, nose congestion, nose pain, photophobia, tearing, throat pain, throat swelling, voice changes, others Respiratory: denies: cough, hemoptysis, orthopnea, SOB at rest, shortness of breath, SOB with excertion, stridor, wheezing, others Cardiovascular: denies: chest pain, dizzy spells, diaphoresis, Dyspnea on exertion, edema, irregular heart beat, left arm pain, lightheadedness, palpitations, PND, syncope, others Gastrointestinal: denies: abdomen distended, abdominal pain, blood streaked bowels, constipated, diarrhea, dysphagia, difficulty swallowing, hematemesis, melena, nausea, poor appetite, poor fluid intake, rectal bleeding, rectal pain, vomiting, others Genitourinary: denies: abnormal vagina bleeding, burning, dyspareunia, dysuria, flank pain, frequency, hematuria, incontinence, pain, , vagina discharg e, urgency, others Neurological: reports: headache, left sided numbness, left sided weakness, speech problems; denies: dizziness, fainting, numbness, paresthesia, pre- existing deficit, right sided numbness, right sided weakness, seizure, tingling, tremors, weakness, others Musculoskeletal: denies: back pain, gout, joint pain, joint swelling, muscle pain, muscle stiffness, neck pain, others Integumetry: denies: bruises, change in color, change in hair/nails, dryness, laceration, lesions, lumps, rash, wounds, others Allergic/Immunocompromised: denies: Difficulty Healing, Frequent Infections, Hives, Itching, others Hematologic/Lymphatic: denies: anemia, blood clots, easy bleeding, easy bruising, swollen glands, others Endocrine: denies: excessive hunger, excessive sweating, excessive thirst, excessive urination, flushing, intolerance to cold, intolerance to heat, unexplained weight gain, unexplained weight loss, others Psychiatric: denies: anxiety, bipolar disorder, depression, hopeless, panic disorder, schizophrenia, sleepless, suicidal, others All Other Systems: Reviewed and Negative Physical Exam General Appearance: No Apparent Distress, Normal HEENT: Normal ENT Inspection, Pharynx Normal, TMs Normal Neck: Full Range of Motion, Non-Tender, Normal, Normal Inspection Respiratory: Chest Non-Tender, Lungs Clear, No Accessory Muscle Use, No Respiratory Distress, Normal Breath Sounds Cardiovascular: No Edema, No JVD, No Murmur, No Gallop, Normal Peripheral Pulses, Regular Rate/Rhythm Breast Exam: Deferred Gastrointestinal: No Organomegaly, Non Tender, No Pulsatile Mass, Normal Bowel Sounds, Soft Genitalia: Deferred Pelvic: Deferred Rectal: Deferred Extremities: No calf tenderness, Normal capillary refill, Normal inspection, Normal range of motion, Non-tender, No pedal edema Musculoskeletal : Apperance: Normal Neurologic: Alert, cotton roll packer II-XII nml as Tested, No Motor Deficits, Normal Affect, Normal Mood, No Sensory Deficits Cerebellar Function: Normal Reflexes: Normal Skin: Dry, Normal Color, Warm Lymphatic: No Adenopathy EKG EKG : Pulse Rate (adult): 88 Cardiac Rhythm: NSR Was a procedure done? Was a procedure done?: No Differential Diagnosis (SZ) Seizure: Alcohol Withdrawl, Hyponatremia, Hypoxemia, Syncope, Other General Weakness: Dehydration, Myocardial infarction, Vestibular neuronitis, Other Headache: CVA, Intracerebral Hemorrhage X-Ray, Labs, Meds, VS Vital Signs Date Time Temp Pulse Resp B/P (MAP) Pulse Ox O2 Delivery O2 Flow Rate FiO2 07/13/24 23:30 97.7 78 16 134/57 (82) 99 97.7 07/13/24 23:30 78 16 99 Room Air* 0 21 07/13/24 22:27 97.7 82 18 134/75 (94) 99 97.7 07/13/24 20:43 88 07/13/24 20:19 88 07/13/24 20:15 98.1 86 16 127/59 (81) 100 98.1 Lab Test 07/13/24 20:55 07/13/24 20:20 Range/Units White Blood Count 10.1 4.4-10.8 10^3/uL Red Blood Count 5.22 H 4.0-5.20 10^6/uL Hemoglobin 14.6 12.2-16.2 g/dL Hematocrit 42.4 36.0-46.0 % Mean Corpuscular Volume 81.3 80.0-100.0 fL Mean Corpuscular Hemoglobin 28.0 28.0-32.0 pg Mean Corpuscular Hemoglobin Concent 34.4 32.0-36.0 g/dL Red Cell Distribution Width 13.9 11.8-14.3 % Platelet Count 320 140-450 10^3/uL Mean Platelet Volume 8.7 6.9-10.8 fL Neutrophils (%) (Auto) 56.3 37.0-80.0 % Lymphocytes (%) (Auto) 38.0 10.0-50.0 % Monocytes (%) (Auto) 3.5 0.0-12.0 % Eosinophils (%) (Auto) 0.8 0.0-7.0 % Basophils (%) (Auto) 1.4 0.0-2.0 % Neutrophils # (Auto) 5.7 1.6-8.6 10 ^3/uL Lymphocytes # (Auto) 3.8 0.4-5.4 10 ^3/uL Monocytes # (Auto) 0.4 0-1.3 10 ^3/uL Eosinophils # (Auto) 0.1 0-0.8 10 ^3/uL Basophils # (Auto) 0.1 0-0.2 10 ^3/uL Nucleated Red Blood Cells 0.0 % Sodium Level 139 136-145 mmol/L Potassium Level 2.8 L 3.5-5.1 mmol/L Chloride Level 100 98-107 mmol/L Carbon Dioxide Level 26 20-31 mmol/L Anion Gap 13 5-15 Blood Urea Nitrogen 11 9-23 mg/dL Creatinine 0.86 0.550-1.02 mg/dL Glomerular Filtration Rate Calc 76 >90 mL/min BUN/Creatinine Ratio 12.8 10.0-20.0 Serum Glucose 111 H 74-106 mg/dL Calcium Level 9.8 8.7-10.4 mg/dL Total Bilirubin 0.5 0.2-1.0 mg/dL Aspartate Amino Transferase (AST) 19 13-40 U/L Alanine Aminotransferase (ALT) 24 7-40 U/L Alkaline Phosphatase 100 46-116 U/L Troponin I High Sensitivity 3 L </=34 ng/L Total Protein 7.9 5.7-8.2 g/dL Albumin 5.2 H 3.2-4.8 g/dL POC Glucose 113 H 70-106 mg/dl Current Medications Medications (Trade) Dose Ordered Sig/Dana Route Start Time Stop Time Status Last Admin Potassium Chloride (Klor-Con Tablet) 20 meq ONCE ONCE PO 07/13/24 22:00 07/13/24 22:01 DC 07/13/24 23:[address] [address] Ph: [phone] DIAGNOSTIC IMAGING Diagnostic Imaging Report : [id number] Signed PATIENT: TAMAR FRYEACCT: [id number] UNIT: [id number] : 1960 LOC: ER ROOM / BED: / AGE / SEX: 63 / F ADM STATUS: REG ER SERVICE 33 ORDERING PHYSICIAN: BRITTNEY MANNING MD PROCEDURE(s): HWOCT - HEAD WITHOUT CONTRAST REASON: left sided paresthesia ORDER NUMBER(s): [id number], ACCESSION NUMBER(s): [id number] EXAM: CT HEAD WITHOUT CONTRAST HISTORY: left sided paresthesia COMPARISON: CT HEAD WITHOUT CONTRAST on DOS: 06/20/24, CT HEAD WITHOUT CONTRAST on DOS: 06/04/23, CT HEAD WITHOUT CONTRAST on DOS: 04/19/23 TECHNIQUE: Axial images were obtained and reformatted in coronal and sagittal planes. All CT scans at this medical facility are performed using dose modulation techniques as appropriate to a performed exam including the following: Automated exposure control was utilized; adjustment of the MA and/or KV according to patient size; and use of iterative reconstruction technique. CT Dose: CTDI volume is 53 mGy. Dose-length product is 945 mGy*cm FINDINGS: Supratentorial Region: No evidence for large acute territorial ischemia. No intracranial hemorrhage is noted. Posterior Fossa: No acute abnormality. Brainstem: Unremarkable. Sellar/Suprasellar Region: Unremarkable. Ventricles, Cisterns, Sulci: Age-appropriate. Orbits: Unremarkable. Paranasal Sinuses: Unremarkable. Mastoid Air Cells: Unremarkable. Vasculature: Unremarkable. Bones/Soft Tissues: No acute abnormality. Other: None. IMPRESSION: 1. No acute intracranial process. ATED BY: RADHA MAX MD DICTATED DATE/TIME: 07/13/242115 SIGNED BY: RADHA MAX MD SIGNED DATE/TIME: 07/13/242115 CC: Time of 1ST Reevaluation: 21:00 Reevaluation 1ST: Unchanged Patient Education/Counseling: Diagnosis, Treatment, Prognosis Family Education/Counseling: No Family Present Additional Information The following tests were ordered, and results were reviewed by me: TROP -x3, CBC, CMP,EKG, CT HEAD WO CONTRAST I reviewed and agreed with the following test results read by other providers: CT HEAD WO CONTRAST I discussed treatment and results with medical personnel and: patient Comprehensive systems review obtained and negative except for what is stated in the HPI. Departure 1 Departure Time of Disposition: 23:00 Impression: Primary Impression: Paresthesia Disposition: HOME / SELF CARE / HOMELESS Condition: Stable e-Prescriptions Potassium Chloride (Potassium Chloride ER) 10 Meq Tab 10 MEQ PO BID for 90 Days, #180 TAB 5 Refills Prov: BRITTNEY MANNING MD 07/13/24 Discharged With: Self Critical Care Note Critical Care Time?: No Stability Stability form required: No Heart Score Heart Score: Heart Score Response (Comments) Value History Slightly Suspicious 0 EKG Normal 0 Age 45-64 1 Risk Factors 1 or 2 risk factors 1 Troponin Normal limit 0 Total 2 I personally scribed for BRITTNEY MANNING MD ([email or web address]) on 07/13/24 at 20:36. Electronically submitted by Anisa Wharton ([email or web address]). I personally scribed for BRITTNEY MANNING MD ([email or web address]) on 07/13/24 at 20:37. Electronically submitted by Anisa Wharton ([email or web address]). I personally scribed for BRITTNEY MANNING MD ([email or web address]) on 07/13/24 at 20:43. Electronically submitted by Anisa Wharton ([email or web address]). I personally scribed for BRITTNEY MANNING MD ([email or web address]) on 07/13/24 at 22:03. Electronically submitted by Anisa Whartno ([email or web address]). BRITTNEY MANNING MD July 13, 2024 20:36
--- NOTE | 2024-07-13 21:18 | DVH ---
EXAM: CT HEAD WITHOUT CONTRAST HISTORY: left sided paresthesia COMPARISON: CT HEAD WITHOUT CONTRAST on DOS: 06/20/24, CT HEAD WITHOUT CONTRAST on DOS: 06/04/23, CT HEA D WITHOUT CONTRAST on DOS: 04/19/23 TECHNIQUE: Axial images were obtained and reformatted in coronal and sagittal planes. All CT scans at this medical facility are performed using dose modulation techniques as appropriate t o a performed exam including the following: Automated exposure control was utilized; adjustment of th e MA and/or KV according to patient size; and use of iterative reconstruction technique. CT Dose: CTDI volume is 53 mGy. Dose-length product is 945 mGy*cm FINDINGS: Supratentorial Region: No evidence for large acute territorial ischemia. No intracranial hemorrhage is noted. Posterior Fossa: No acute abnormality. Brainstem: Unremarkable. Sellar/Suprasellar Region: Unremarkable. Ventricles, Cisterns, Sulci: Age-appropriate. Orbits: Unremarkable. Paranasal Sinuses: Unremarkable. Mastoid Air Cells: Unremarkable. Vasculature: Unremarkable. Bones/Soft Tissues: No acute abnormality. Other: None. IMPRESSION: 1. No acute intracranial process.
[2024-07-13 21:21] LABS: Basophils # (auto) 0.1 10 ^3/uL (0-0.2); Basophils % (auto) 1.4 % (0.0-2.0); Eosinophils # (auto) 0.1 10 ^3/uL (0-0.8); Eosinophils % (auto) 0.8 % (0.0-7.0); Hematocrit 42.4 % (36.0-46.0); Hemoglobin 14.6 g/dL (12.2-16.2); Lymphocytes # (auto) 3.8 10 ^3/uL (0.4-5.4); Mean Corpuscular Hgb Conc. 34.4 g/dL (32.0-36.0); Mean Corpuscular Volume 81.3 fL (80.0-100.0); Monocytes # (auto) 0.4 10 ^3/uL (0-1.3); Monocytes % (auto) 3.5 % (0.0-12.0); Neutrophils # (auto) 5.7 10 ^3/uL (1.6-8.6); Neutrophils % (auto) 56.3 % (37.0-80.0); Platelet Count (auto) 320 10^3/uL (140-450); Red Blood Cells 5.22 10^6/uL (4.0-5.20); Red Cell Distribution Width 13.9 % (11.8-14.3); White Blood Cell 10.1 10^3/uL (4.4-10.8)
[2024-07-13 21:44] LABS: Alanine Aminotransferase 24 U/L (7-40); Alkaline Phosphatase 100 U/L (46-116); Anion Gap 13 (5-15); Aspartate Aminotransferase 19 U/L (13-40); BUN/Creatinine Ratio 12.8 (10.0-20.0); Blood Urea Nitrogen 11 mg/dL (9-23); Calcium 9.8 mg/dL (8.7-10.4); Carbon Dioxide 26 mmol/L (20-31); Chloride 100 mmol/L (98-107); Sodium 139 mmol/L (136-145); Total Protein 7.9 g/dL (5.7-8.2)
[2024-07-13 21:45] LABS: Albumin 5.2 g/dL (3.2-4.8); Bilirubin, Total 0.5 mg/dL (0.2-1.0); Glucose 111 mg/dL (74-106); Potassium 2.8 mmol/L (3.5-5.1)
[2024-07-13] MEDS ORDERED: POTA-228 PO (22:03)
[2024-07-13] MEDS: POTASSIUM CHL 20 Meq TABLET PO ONE (23:27)
[2024-07-13 23:30] VITALS: BP 134/57; PULSE 78; RESP 16; TEMP 97.7; O2SAT 99
--- NOTE | 2024-07-14 09:55 | ECG ---
[facility] Test Date: 2024-07-13 Test Time: 20:19:34 Pat Name: TAMAR CARRIZALES Department: ER Room: Gender: F Speech Language Pathology Assistant: MELANY : 1960 Requested By: EMERGENCY EMERGENCY Order Number: [id number] Reading MD: Binu Ham Measurements Intervals Donnelly Rate: 88 P: 73 VT: 147 QRS: 85 QRSD: 104 T: 262 QT: 383 QTc: 464 Interpretive Statements Sinus rhythm Borderline right axis deviation Repol abnrm suggests ischemia, anterolateral And inferolateral Baseline wander in lead(s) I,III,aVR,aVL,aVF,V2,V4,V5,V6 Electronically Signed On 07-14-2024 13:15:56 PDT by Binu Ham Please click the below link to view image of tracing.
== END 2024-07-13 23:32 | disposition home or self-care (01) ==
LOC: ER 20:12
DX: R20.2 Paresthesia of skin (principal); R47.81 Slurred speech; R51.9 Headache, unspecified; R53.1 Weakness; H53.8 Other visual disturbances; E11.9 Type 2 diabetes mellitus without complications; E78.5 Hyperlipidemia, unspecified; I10 Essential (primary) hypertension; J45.909 Unspecified asthma, uncomplicated; M19.90 Unspecified osteoarthritis, unspecified site; Z86.73 Personal history of transient ischemic attack (TIA), and cerebral infarction without residual deficits; Z90.49 Acquired absence of other specified parts of digestive tract; Z98.51 Tubal ligation status
CPT/HCPCS: 36415; 70450; 80053; 82947; 82962; 84484; 85025; 93005

== ENCOUNTER 2024-10-10 15:58 | Emergency (ER) | payer MEDICAID, OTHER ==
[~2024-10-10] VITALS: Ht 165.1 cm; Wt 82.0 kg
[~2024-10-10 15:58] MED LIST changes: +POTA-228 PO
[2024-10-10] MEDS ORDERED: VENL225T20 PO (16:28)
[2024-10-10] MEDS ORDERED: FURO20TA4 PO (16:28)
[2024-10-10] MEDS ORDERED: TRIO1TP EX (16:28)
[2024-10-10] MEDS ORDERED: AMLO1TAB23 PO (16:28)
[2024-10-10] MEDS ORDERED: HYDR1CAP27 PO (16:28)
--- NOTE | 2024-10-10 16:38 | ED.PDOC ---
History of Present Illness(SKN HPI Comments 63 year old female with a past medical history of anxiety, arthritis, asthma, CVA, depression, diabetes, hyperlipidemia, hypertension presents to the emergency department with a chief complaint of rash onset 2 weeks. Patient states she noticed rash on bilateral lower extremities for the past 2 weeks with itchiness. Has not been able to see PCP due to insurance issues, is requesting refill prescription of Venlafaxine, Amlodipine, Hydroxyzine, Furosemide. No other symptoms or modifying factors present at this time. Denies fever, chills Denies nausea, vomiting, diarrhea Denies chest pain,shortness of breath Denies dizziness Chief Complaint: Rash Time Seen by MD: 16:20 Primary Care Provider: DR DUBON History of Present Illness: Nurses Notes, Medications, Allergies Allergies: Coded Allergies: Aspirin (Verified Allergy, Unknown, 01/04/21) Home Meds Active Scripts Triamcinolone Acetonide (Triamcinolone Acetonide) 0.1 % Cre, 1 APPLIC EX BID for 5 Days, #90 GRAMS 0 Refills Prov:MINA FIELDS NP 10/10/24 Hydroxyzine Pamoate (Hydroxyzine Pamoate) 25 Mg Cap, 1 CAP PO DAILYPRN PRN for ANXIETY for 30 Days, #30 CAP 0 Refills Prov:MINA FIELDS NP 10/10/24 Furosemide (Furosemide) 20 Mg Tab, 1 TAB PO DAILY PRN for SWELLING for 30 Days, #30 TAB 0 Refills Prov:MINA FIELDS NP 10/10/24 Venlafaxine Hcl (Venlafaxine Hcl Er) 225 Mg Tab, 1 TAB PO DAILY for 30 Days, #30 TAB 0 Refills Prov:MINA FIELDS NP 10/10/24 Amlodipine Besylate (Amlodipine Besylate) 10 Mg Tab, 10 MG PO DAILY for 30 Days, #30 TAB Prov:MINA FIELDS NP 10/10/24 Potassium Chloride (Potassium Chloride ER) 10 Meq Tab, 10 MEQ PO BID for 90 Days, #180 TAB 5 Refills Prov:BRITTNEY MANNING MD 07/13/24 Atorvastatin Calcium (ATORVASTATIN CALCIUM) 20 Mg Tab, 40 MG PO HS for 90 Days, #180 TAB Prov:FEMI JEWELL RESIDENT 06/07/23 Cetirizine HCl (Eql All Day Allergy) 10 Mg Tab, 10 MG PO DAILY PRN, #30 TAB 0 Refills Prov:BETTE ROSALES 08/06/22 Reported Medications Pantoprazole Sodium Sesquihydr (Pantoprazole Sodium) 40 Mg Tab, 1 TAB PO DAILY 06/21/24 Trazodone HCl (Trazodone Hydrocloride) 100 Mg Tab, 150 MG PO HS PRN for FOR INSOMNIA 06/21/24 Aspirin (Aspir-81) 81 Mg Tab, 81 MG PO DAILY, TAB 06/21/24 Montelukast Sodium (MONTELUKAST SODIUM) 10 Mg Tab, 10 MG PO DAILY for ALLERGIES, TAB 06/21/24 Levothyroxine Sodium (Levothyroxine Sodium) 50 Mcg Tab, 1 TAB PO DAILY 06/21/24 Topiramate (Topiramate) 25 Mg Tab, 1 TAB PO BID for HEADACHE 06/21/24 Ramelteon (Ramelteon) 8 Mg Tab, 0.5 TAB PO HS 06/04/23 Metformin Hydrochloride (Metformin Hcl Er) 500 Mg Tab, 1 TAB PO DAILY 06/04/23 Docusate Sodium (Docusate Sodium) 100 Mg Cap, 1 TAB PO TID 06/04/23 Acetaminophen (Acetaminophen Er) 650 Mg Tab, 1 TAB PO TID PRN for PAIN SCALE 1 THRU 6 06/04/23 Information Source: Patient Mode of Arrival: Ambulatory Severity: Moderate Timing: Weeks Duration: Since onset Prehospital treatment: None Location: Leg Mechanism: Spontaneous Onset Developed: Rash Object: None Condition of Object: None Wound Type: None History of: Diabetes Associated Signs and Symptoms: Redness Past Medical History PAST MEDICAL HISTORY: Anxiety, Arthritis, Asthma, CVA, Depression, DM, High Lipids, HTN, Thyroid Surgical History: Appendectomy, Cholecystectomy, Tubal Ligation AERIAL PLANTING AND CULTIVATION MANAGER History: No Pertinent AERIAL PLANTING AND CULTIVATION MANAGER History Family History Family History: Reviewed,noncontributory to illness, Family hx of HTN Social History Smoker: Non-Smoker Alcohol: Denies ETOH Use Drugs: Denies Drug Use Lives In: Home All Other Systems: Reviewed and Negative (as per HPI) Physical Exam General Appearance: Normal HEENT: Normal ENT Inspection, Pharynx Normal, TMs Normal Neck: Full Range of Motion, Non-Tender, Normal, Normal Inspection Respiratory: Chest Non-Tender, Lungs Clear, No Accessory Muscle Use, No Respiratory Distress, Normal Breath Sounds Cardiovascular: No Murmur, No Gallop, Regular Rate/Rhythm Breast Exam: Deferred Gastrointestinal: No Organomegaly, Non Tender, No Pulsatile Mass, Normal Bowel Sounds, Soft Genitalia: Deferred Pelvic: Deferred Rectal: Deferred Extremities: No calf tenderness, Normal capillary refill, Normal inspection, Normal range of motion, Non-tender, No pedal edema Musculoskeletal : Apperance: Normal Neurologic: Alert, senior oracle pl sql developer II-XII nml as Tested, No Motor Deficits, Normal Affect, Normal Mood, No Sensory Deficits Cerebellar Function: Normal Reflexes: Normal Skin: Dry, Rash (diffussed scaley macular papular throught the BLE with no TTP, no fluctuance, no drainage, no edema) Lymphatic: No Adenopathy Was a procedure done? Was a procedure done?: No Differential Diagnosis (INTG) Differential Diagnosis: Other X-Ray, Labs, Meds, VS Vital Signs Date Time Temp Pulse Resp B/P (MAP) Pulse Ox O2 Delivery O2 Flow Rate FiO2 10/10/24 17:01 98.9 89 18 152/78 (102) 98 98.9 10/10/24 17:01 98 16 98 Room Air 10/10/24 16:00 97.7 78 15 121/73 99 97.7 Current Medications Medications (Trade) Dose Ordered Sig/Dana Route Start Time Stop Time Status Last Admin Methylprednisolone Sodium Succinate (Solu Medrol) 125 mg ONCE ONCE IM 10/10/24 16:30 10/10/24 16:31 DC 10/10/24 16:55 X-Ray, Labs, Meds, VS Comment 63 year old female with a past medical history of anxiety, arthritis, asthma, CVA, depression, diabetes, hyperlipidemia, hypertension presents to the emergency department with a chief complaint of rash onset 2 weeks. Patient was given: Solu-Medrol 125 mg IM. Tolerated medications with no adverse reaction. Patient is stable for discharge at this time. External notes reviewed. Test results and diagnostic imaging interpreted. All diagnostic findings, discharge care, education and instructions provided Follow-up with PCP in 2 to 3 days Patient verbalized understanding and agreed to treatment plan Vital signs stable, afebrile, no acute distress noted Patient ambulatory with strong steady gait Advised to return precautions for any new or worsening symptoms, return to ER immediately for re-evaluation Patient is aware that the purpose of this visit was for an acute medical emergency requiring emergent stabilization. Chronic conditions, including malignancies have not been ruled out. Patient is instructed to follow up with PCP as directed and discharge instructions for continued care and workup. If unable to arrange follow-up, patient is to return to the emergency department for reassessment. Patient (parent or legal guardian if applicable) was given verbal and written discharge instructions and acknowledges understanding. Additional MDM Review of External, Non-ED records: External records reviewed. Discussion with independent historian (EMS, family) history obtained from the patient/parents (if applicable) at bedside Chronic conditions affecting care: anxiety, arthritis, asthma, CVA, depression, diabetes, HTN, HLD Social determinants of health affecting care: None Consideration of admission (observation or admission): I considered escalation of care to admission for this patient, however given the reassuring workup, the patient is safe for outpatient management. Time of 1ST Reevaluation: 16:50 Reevaluation 1ST: Improved Patient Education/Counseling: Diagnosis, Treatment Family Education/Counseling: No Family Present SEPSIS Sepsis Screen Date sepsis recognized/suspect: Oct 10, 2024 Time Sepsis recognized/suspect: 1602 Recent Procedure: No On Antibiotic Therapy: No Respiratory Rate >20: No Heart Rate >90: No Temp<36 C (96.8 F) or >38.3 C: No SBP <90 or MAP <65 mmHG: No New Acute Mental Status Change: No Is the patient on CPAP, BIPAP,: No Vital Signs Date Time Temp Pulse Resp B/P (MAP) Pulse Ox O2 Delivery O2 Flow Rate FiO2 10/10/24 17:01 98.9 89 18 152/78 (102) 98 98.9 10/10/24 17:01 98 16 98 Room Air 10/10/24 16:00 97.7 78 15 121/73 99 97.7 Departure 1 Departure Time of Disposition: 16:28 Impression: Primary Impression: Eczema Qualified Codes: L30.9 - Dermatitis, unspecified Additional Impression: Nummular eczema Disposition: 01 HOME / SELF CARE / HOMELESS Condition: Stable e-Prescriptions Triamcinolone Acetonide (Triamcinolone Acetonide) 0.1 % Cre 1 APPLIC EX BID for 5 Days, #90 GRAMS 0 Refills Prov: MINA FIELDS HUMAN RESOURCES TALENT MANAGER 10/10/24 Hydroxyzine Pamoate (Hydroxyzine Pamoate) 25 Mg Cap 1 CAP PO DAILYPRN PRN for ANXIETY for 30 Days, #30 CAP 0 Refills Prov: MINA FIELDS NP 10/10/24 Furosemide (Furosemide) 20 Mg Tab 1 TAB PO DAILY PRN for SWELLING for 30 Days, #30 TAB 0 Refills Prov: MINA FIELDS NP 10/10/24 Venlafaxine Hcl (Venlafaxine Hcl Er) 225 Mg Tab 1 TAB PO DAILY for 30 Days, #30 TAB 0 Refills Prov: MINA FIELDS NP 10/10/24 Amlodipine Besylate (Amlodipine Besylate) 10 Mg Tab 10 MG PO DAILY for 30 Days, #30 TAB Prov: MINA FIELDS NP 10/10/24 Discharged With: Self Critical Care Note Critical Care Time?: No Stability Stability form required: No Heart Score Heart Score: Heart Score Response (Comments) Value History N/A 0 EKG N/A 0 Age N/A 0 Risk Factors N/A 0 Troponin N/A 0 Total 0 I personally scribed for MINA FIELDS NP ([email or web address]) on 10/10/24 at 16:38. Electronically submitted by Anisa Wharton [email or web address]). MINA FIELDS NP Oct 10, 2024 16:38
[2024-10-10] MEDS: methylPREDNISolone SOD SUCC 125 MG/2 ML VL IM ONE (16:55)
[2024-10-10 17:01] VITALS: BP 152/78; PULSE 98; RESP 16; TEMP 98.9; O2SAT 98
== END 2024-10-10 17:10 | disposition home or self-care (01) ==
LOC: ER 15:58
DX: L30.0 Nummular dermatitis (principal); F41.9 Anxiety disorder, unspecified; J45.909 Unspecified asthma, uncomplicated; E11.9 Type 2 diabetes mellitus without complications; E78.5 Hyperlipidemia, unspecified; I10 Essential (primary) hypertension; Z79.899 Other long term (current) drug therapy; Z90.49 Acquired absence of other specified parts of digestive tract
CPT/HCPCS: 96372; 99283; J2919

== ENCOUNTER 2024-11-13 15:52 | Emergency (ER) | payer OTHER ==
[~2024-11-13] VITALS: Ht 165.1 cm; Wt 82.5 kg
[~2024-11-13 15:52] MED LIST changes: +TRIO1TP EX
--- NOTE | 2024-11-13 16:55 | ED.PDOC ---
History of Present Illness HPI Comments 64 y/o F, with PMHx of anxiety, depression, arthritis, thyroid disease, asthma, CVA, HLD, DM, and HTN presents to the ED for CC of hypertension. Patient states, she has been having hypertensive blood pressure readings x3days. Patient reports, that she recently lost her health insurance coverage and has been unable to obtain a refill on her blood pressure medications. Patient denies chest pain, headache, dizziness, lightheadedness, nausea, or vomiting. No other symptoms or modifying factors are present at this time. Chief Complaint: High Blood Pressure Time Seen by MD: 16:30 Primary Care Provider: DR DUBON Reviewed Notes: Nurses Notes, Medications, Allergies Allergies: Coded Allergies: Aspirin (Verified Allergy, Unknown, 01/04/21) Home Meds Active Scripts Lisinopril (Lisinopril) 5 Mg Tab, 5 MG PO DAILY for 10 Days, #10 TAB Prov:JARVIS SAM MD 11/13/24 Triamcinolone Acetonide (Triamcinolone Acetonide) 0.1 % Cre, 1 APPLIC EX BID for 5 Days, #90 GRAMS 0 Refills Prov:MINA FIELDS NP 10/10/24 Hydroxyzine Pamoate (Hydroxyzine Pamoate) 25 Mg Cap, 1 CAP PO DAILYPRN PRN for ANXIETY for 30 Days, #30 CAP 0 Refills Prov:MINA FIELDS NP 10/10/24 Furosemide (Furosemide) 20 Mg Tab, 1 TAB PO DAILY PRN for SWELLING for 30 Days, #30 TAB 0 Refills Prov:MINA FIELDS NP 10/10/24 Venlafaxine Hcl (Venlafaxine Hcl Er) 225 Mg Tab, 1 TAB PO DAILY for 30 Days, #30 TAB 0 Refills Prov:MINA FIELDS NP 10/10/24 Amlodipine Besylate (Amlodipine Besylate) 10 Mg Tab, 10 MG PO DAILY for 30 Days, #30 TAB Prov:MINA FIELDS NP 10/10/24 Potassium Chloride (Potassium Chloride ER) 10 Meq Tab, 10 MEQ PO BID for 90 Days, #180 TAB 5 Refills Prov:BRITTNEY MANNING MD 07/13/24 Atorvastatin Calcium (ATORVASTATIN CALCIUM) 20 Mg Tab, 40 MG PO HS for 90 Days, #180 TAB Prov:FEMI JEWELL RESIDENT 06/07/23 Cetirizine HCl (Eql All Day Allergy) 10 Mg Tab, 10 MG PO DAILY PRN, #30 TAB 0 Refills Prov:BETTE ROSALES 08/06/22 Reported Medications Pantoprazole Sodium Sesquihydr (Pantoprazole Sodium) 40 Mg Tab, 1 TAB PO DAILY 06/21/24 Trazodone HCl (Trazodone Hydrocloride) 100 Mg Tab, 150 MG PO HS PRN for FOR INSOMNIA 06/21/24 Aspirin (Aspir-81) 81 Mg Tab, 81 MG PO DAILY, TAB 06/21/24 Montelukast Sodium (MONTELUKAST SODIUM) 10 Mg Tab, 10 MG PO DAILY for ALLERGIES, TAB 06/21/24 Levothyroxine Sodium (Levothyroxine Sodium) 50 Mcg Tab, 1 TAB PO DAILY 06/21/24 Topiramate (Topiramate) 25 Mg Tab, 1 TAB PO BID for HEADACHE 06/21/24 Ramelteon (Ramelteon) 8 Mg Tab, 0.5 TAB PO HS 06/04/23 Metformin Hydrochloride (Metformin Hcl Er) 500 Mg Tab, 1 TAB PO DAILY 06/04/23 Docusate Sodium (Docusate Sodium) 100 Mg Cap, 1 TAB PO TID 06/04/23 Acetaminophen (Acetaminophen Er) 650 Mg Tab, 1 TAB PO TID PRN for PAIN SCALE 1 THRU 6 06/04/23 Information Source: Patient Mode of Arrival: Ambulatory Severity: Moderate Timing: Days Duration: Since onset Prehospital treatment: None Medication Refill: Ran out of Medication, For: Hypertension Past Medical History PAST MEDICAL HISTORY: Anxiety, Arthritis, Asthma, CVA, Depression, DM, High Lipids, HTN, Thyroid Surgical History: Appendectomy, Cholecystectomy, Tubal Ligation SPORTS TEACHER History: No Pertinent SPORTS TEACHER History Family History Family History: Reviewed,noncontributory to illness, Family hx of HTN Social History Smoker: Non-Smoker Alcohol: Denies ETOH Use Drugs: Denies Drug Use Lives In: Home Constitutional: denies: chills, diaphoresis, fatigue, fever, malaise, sweats, weakness, others EENTM: denies: blurred vision, double vision, ear bleeding, ear discharge, ear drainage, ear pain, ear ringing, eye pain, eye redness, hearing loss, mouth pain, mouth swelling, nasal discharge, nose bleeding, nose congestion, nose pain, photophobia, tearing, throat pain, throat swelling, voice changes, others Respiratory: denies: cough, hemoptysis, orthopnea, SOB at rest, shortness of breath, SOB with excertion, stridor, wheezing, others Cardiovascular: denies: chest pain, dizzy spells, diaphoresis, Dyspnea on exertion, edema, irregular heart beat, left arm pain, lightheadedness, palpitations, PND, syncope, others Gastrointestinal: denies: abdomen distended, abdominal pain, blood streaked bowels, constipated, diarrhea, dysphagia, difficulty swallowing, hematemesis, melena, nausea, poor appetite, poor fluid intake, rectal bleeding, rectal pain, vomiting, others Genitourinary: denies: abnormal vagina bleeding, burning, dyspareunia, dysuria, flank pain, frequency, hematuria, incontinence, pain, , vagina discharge, urgency, others Neurological: denies: dizziness, fainting, headache, left sided numbness, left sided weakness, numbness, paresthesia, pre-existing deficit, right sided numbness, right sided weakness, seizure, speech problems, tingling, tremors, weakness, others Musculoskeletal: denies: back pain, gout, joint pain, joint swelling, muscle pain, muscle stiffness, neck pain, others Integumetry: denies: bruises, change in color, change in hair/nails, dryness, laceration, lesions, lumps, rash, wounds, others Allergic/Immunocompromised: denies: Difficulty Healing, Frequent Infections, Hives, Itching, others Hematologic/Lymphatic: denies: anemia, blood clots, easy bleeding, easy bruising, swollen glands, others Endocrine: denies: excessive hunger, excessive sweating, excessive thirst, excessive urination, flushing, intolerance to cold, intolerance to heat, unexplained weight gain, unexplained weight loss, others Psychiatric: denies: anxiety, bipolar disorder, depression, hopeless, panic disorder, schizophrenia, sleepless, suicidal, others All Other Systems: Reviewed and Negative Physical Exam General Appearance: Moderate Distress HEENT: Normal ENT Inspection, Pharynx Normal, TMs Normal Neck: Full Range of Motion, Non-Tender, Normal, Normal Inspection Respiratory: Chest Non-Tender, Lungs Clear, No Accessory Muscle Use, No Respiratory Distress, Normal Breath Sounds Cardiovascular: No Edema, No JVD, No Murmur, No Gallop, Normal Peripheral Pul ses, Regular Rate/Rhythm Breast Exam: Deferred Gastrointestinal: No Organomegaly, Non Tender, No Pulsatile Mass, Normal Bowel Sounds, Soft Genitalia: Deferred Pelvic: Deferred Rectal: Deferred Extremities: No calf tenderness, Normal capillary refill, Normal inspection, Normal range of motion, Non-tender, No pedal edema Musculoskeletal : Apperance: Normal Neurologic: Alert, director of casework department II-XII nml as Tested, No Motor Deficits, Normal Affect, Normal Mood, No Sensory Deficits Cerebellar Function: Normal Reflexes: Normal Skin: Dry, Normal Color, Warm Peripheral Pulses: 3+ Radial (R), 3+ Radial (L) Lymphatic: No Adenopathy Was a procedure done? Was a procedure done?: No Differential Dx Considerations may include: Medical non-compliance, med-refill, hypertensive urgency X-Ray, Labs, Meds, VS Vital Signs Date Time Temp Pulse Resp B/P (MAP) Pulse Ox O2 Delivery O2 Flow Rate FiO2 11/13/24 15:54 98.2 100 16 162/78 98 98.2 Lab Test 11/13/24 16:38 Range/Units White Blood Count 7.0 4.4-10.8 10^3/uL Red Blood Count 5.44 H 4.0-5.20 10^6/uL Hemoglobin 15.5 12.2-16.2 g/dL Hematocrit 45.1 36.0-46.0 % Mean Corpuscular Volume 82.9 80.0-100.0 fL Mean Corpuscular Hemoglobin 28.5 28.0-32.0 pg Mean Corpuscular Hemoglobin Concent 34.3 32.0-36.0 g/dL Red Cell Distribution Width 13.8 11.8-14.3 % Platelet Count 335 140-450 10^3/uL Mean Platelet Volume 8.5 6.9-10.8 fL Neutrophils (%) (Auto) 60.8 37.0-80.0 % Lymphocytes (%) (Auto) 34.1 10.0-50.0 % Monocytes (%) (Auto) 3.2 0.0-12.0 % Eosinophils (%) (Auto) 1.2 0.0-7.0 % Basophils (%) (Auto) 0.7 0.0-2.0 % Neutrophils # (Auto) 4.3 1.6-8.6 10 ^3/uL Lymphocytes # (Auto) 2.4 0.4-5.4 10 ^3/uL Monocytes # (Auto) 0.2 0-1.3 10 ^3/uL Eosinophils # (Auto) 0.1 0-0.8 10 ^3/uL Basophils # (Auto) 0 0-0.2 10 ^3/uL Nucleated Red Blood Cells 0.0 % Sodium Level 137 136-145 mmol/L Potassium Level 3.2 L 3.5-5.1 mmol/L Chloride Level 100 98-107 mmol/L Carbon Dioxide Level 29 20-31 mmol/L Anion Gap 8 5-15 Blood Urea Nitrogen 8 L 9-23 mg/dL Creatinine 0.79 0.550-1.02 mg/dL Glomerular Filtration Rate Calc 84 >90 mL/min BUN/Creatinine Ratio 10.1 10.0-20.0 Serum Glucose 174 H 74-106 mg/dL Calcium Level 10.2 8.7-10.4 mg/dL Troponin I High Sensitivity 8 </=34 ng/L Patient alert. Came in because of high blood pressure. Vitals are stable. Ambulating. No leg swelling. No chest pain. No headache. No dizziness. Blood sugar elevated. Potassium low. Was given potassium. Cardiac marker within normal limits. Was given prescription of lisinopril. Explained to the patient. Was told to follow up with her primary care physician. Was told to come back if there is any problem. Time of 1ST Reevaluation: 17:00 Reevaluation 1ST: Improved Patient Education/Counseling: Diagnosis, Treatment Family Education/Counseling: No Family Present SEPSIS Sepsis Screen Date sepsis recognized/suspect: Nov 13, 2024 Time Sepsis recognized/suspect: 1553 Recent Procedure: No On Antibiotic Therapy: No Respiratory Rate >20: No Heart Rate >90: Yes Temp<36 C (96.8 F) or >38.3 C: No SBP <90 or MAP <65 mmHG: No New Acute Mental Status Change: No Is the patient on CPAP, BIPAP,: No Physician Orders Urinalysis (11/13/24 16:31) Potassium Effervesent Tab (Klor-Con/Ef) (11/13/24 17:45) Vital Signs Date Time Temp Pulse Resp B/P (MAP) Pulse Ox O2 Delivery O2 Flow Rate FiO2 11/13/24 15:54 98.2 100 16 162/78 98 98.2 Laboratory Tests Test 11/13/24 16:38 White Blood Count 7.0 10^3/uL (4.4-10.8) Departure 1 Departure Time of Disposition: 16:57 Impression: Primary Impression: HTN (hypertension) Qualified Codes: I10 - Essential (primary) hypertension Additional Impressions: Hyperglycemia Hypokalemia Disposition: HOME / SELF CARE / HOMELESS Condition: Good e-Prescriptions Lisinopril (Lisinopril) 5 Mg Tab 5 MG PO DAILY for 10 Days, #10 TAB Prov: JARVIS SAM MD 11/13/24 Discharged With: Self Critical Care Note Critical Care Time?: No Stability Stability form required: No Heart Score Heart Score: Heart Score Response (Comments) Value History N/A 0 EKG N/A 0 Age N/A 0 Risk Factors N/A 0 Troponin N/A 0 Total 0 I personally scribed for JARVIS SAM MD ([email or web address]) on 11/13/24 at 16:55. Electronically submitted by Madonna Alvarenga ([email or web address]). I personally scribed for JARVIS SAM MD ([email or web address]) on 11/13/24 at 17:37. Electronically submitted by Madonna Alvarenga ([email or web address]). JARVIS SAM MD Nov 13, 2024 16:55
--- NOTE | 2024-11-13 16:55 | ED.PDOC ---
History of Present Illness Chief Complaint: High Blood Pressure Time Seen by MD: 16:09 Primary Care Provider: DR DUBON Allergies: Coded Allergies: Aspirin (Verified Allergy, Unknown, 01/04/21) Home Meds Active Scripts Triamcinolone Acetonide (Triamcinolone Acetonide) 0.1 % Cre, 1 APPLIC EX BID for 5 Days, #90 GRAMS 0 Refills Prov:DONNIEMINA DEUTSCH Juan MANAGING MEMBER 10/10/24 Hydroxyzine Pamoate (Hydroxyzine Pamoate) 25 Mg Cap, 1 CAP PO DAILYPRN PRN for ANXIETY for 30 Days, #30 CAP 0 Refills Prov:DONNIEMINA MANAGING MEMBER 10/10/24 Furosemide (Furosemide) 20 Mg Tab, 1 TAB PO DAILY PRN for SWELLING for 30 Days, #30 TAB 0 Refills Prov:MINA FIELDS NP 10/10/24 Venlafaxine Hcl (Venlafaxine Hcl Er) 225 Mg Tab, 1 TAB PO DAILY for 30 Days, #30 TAB 0 Refills Prov:MINA FIELDS NP 10/10/24 Amlodipine Besylate (Amlodipine Besylate) 10 Mg Tab, 10 MG PO DAILY for 30 Days, #30 TAB Prov:MINA FIELDS MANAGING MEMBER 10/10/24 Potassium Chloride (Potassium Chloride ER) 10 Meq Tab, 10 MEQ PO BID for 90 Days, #180 TAB 5 Refills Prov:BRITTNEY MANNING MD 07/13/24 Atorvastatin Calcium (ATORVASTATIN CALCIUM) 20 Mg Tab, 40 MG PO HS for 90 Days, #180 TAB Prov:FEMI JEWELL RESIDENT 06/07/23 Cetirizine HCl (Eql All Day Allergy) 10 Mg Tab, 10 MG PO DAILY PRN, #30 TAB 0 Refills Prov:BETTE ROSALES 08/06/22 Reported Medications Pantoprazole Sodium Sesquihydr (Pantoprazole Sodium) 40 Mg Tab, 1 TAB PO DAILY 06/21/24 Trazodone HCl (Trazodone Hydrocloride) 100 Mg Tab, 150 MG PO HS PRN for FOR INSOMNIA 06/21/24 Aspirin (Aspir-81) 81 Mg Tab, 81 MG PO DAILY, TAB 06/21/24 Montelukast Sodium (MONTELUKAST SODIUM) 10 Mg Tab, 10 MG PO DAILY for ALLERGIES, TAB 06/21/24 Levothyroxine Sodium (Levothyroxine Sodium) 50 Mcg Tab, 1 TAB PO DAILY 06/21/24 Topiramate (Topiramate) 25 Mg Tab, 1 TAB PO BID for HEADACHE 06/21/24 Ramelteon (Ramelteon) 8 Mg Tab, 0.5 TAB PO HS 06/04/23 Metformin Hydrochloride (Metformin Hcl Er) 500 Mg Tab, 1 TAB PO DAILY 06/04/23 Docusate Sodium (Docusate Sodium) 100 Mg Cap, 1 TAB PO TID 06/04/23 Acetaminophen (Acetaminophen Er) 650 Mg Tab, 1 TAB PO TID PRN for PAIN SCALE 1 THRU 6 06/04/23 Mode of Arrival: Ambulatory Past Medical History PAST MEDICAL HISTORY: Anxiety, Arthritis, Asthma, CVA, Depression, DM, High Lipids, HTN, Thyroid Surgical History: Appendectomy, Cholecystectomy, Tubal Ligation HVAC DESIGNER History: No Pertinent HVAC DESIGNER History Family History Family History: Reviewed,noncontributory to illness, Family hx of HTN Social History Smoker: Non-Smoker Alcohol: Denies ETOH Use Drugs: Denies Drug Use Lives In: Home X-Ray, Labs, Meds, VS Vital Signs Date Time Temp Pulse Resp B/P (MAP) Pulse Ox O2 Delivery O2 Flow Rate FiO2 11/13/24 15:54 98.2 100 16 162/78 98 98.2 SEPSIS Sepsis Screen Date sepsis recognized/suspect: Nov 13, 2024 Time Sepsis recognized/suspect: 1554 Recent Procedure: No On Antibiotic Therapy: No Respiratory Rate >20: No Heart Rate >90: Yes Temp<36 C (96.8 F) or >38.3 C: No SBP <90 or MAP <65 mmHG: No New Acute Mental Status Change: No Is the patient on CPAP, BIPAP,: No Physician Orders Troponin-I Hs (11/13/24 16:31) Complete Blood Count (11/13/24 16:31) Urinalysis (11/13/24 16:31) Basic Metabolic Panel (11/13/24 16:31) Vital Signs Date Time Temp Pulse Resp B/P (MAP) Pulse Ox O2 Delivery O2 Flow Rate FiO2 11/13/24 15:54 98.2 100 16 162/78 98 98.2 I personally scribed for JARVIS SAM MD ([email or web address]) on 9/14/25 at 16:57. Electronically submitted by Madonna Alvarenga ([email or web address]). JARVIS SAM MD Nov 13, 2024 16:55
[2024-11-13] MEDS ORDERED: LISI-275 PO (16:58)
[2024-11-13 17:10] LABS: Chloride 100 mmol/L (98-107); Sodium 137 mmol/L (136-145)
[2024-11-13 17:11] LABS: Anion Gap 8 (5-15); Carbon Dioxide 29 mmol/L (20-31)
[2024-11-13 17:12] LABS: Calcium 10.2 mg/dL (8.7-10.4)
[2024-11-13 17:16] LABS: BUN/Creatinine Ratio 10.1 (10.0-20.0)
[2024-11-13 17:25] LABS: Blood Urea Nitrogen 8 mg/dL (9-23); Glucose 174 mg/dL (74-106); Potassium 3.2 mmol/L (3.5-5.1)
[2024-11-13 17:28] LABS: Hematocrit 45.1 % (36.0-46.0); Hemoglobin 15.5 g/dL (12.2-16.2); Mean Corpuscular Hemoglobin 28.5 pg (28.0-32.0); Mean Corpuscular Volume 82.9 fL (80.0-100.0); Nucleated Red Blood Cells % 0.0 %
[2024-11-13 17:59] VITALS: BP 158/60; TEMP 98
[2024-11-13] MEDS ORDERED: POTASSIUM EFFERVESENT TAB 25 MEQ ONE (18:34)
[2024-11-13] MEDS: POTASSIUM EFFERVESENT TAB 25 MEQ PO ONE (18:36)
[2024-11-13 18:42] VITALS: PULSE 78; RESP 17; O2SAT 98
== END 2024-11-13 18:44 | disposition home or self-care (01) ==
LOC: ER 15:52
DX: I10 Essential (primary) hypertension (principal); E11.65 Type 2 diabetes mellitus with hyperglycemia; E87.6 Hypokalemia; F41.9 Anxiety disorder, unspecified; F32.A Depression, unspecified; E78.5 Hyperlipidemia, unspecified; J45.909 Unspecified asthma, uncomplicated; M19.90 Unspecified osteoarthritis, unspecified site; Z79.899 Other long term (current) drug therapy; Z79.890 Hormone replacement therapy; Z79.82 Long term (current) use of aspirin; Z59.71 Insufficient health insurance coverage; Z98.51 Tubal ligation status; Z90.49 Acquired absence of other specified parts of digestive tract; Z79.84 Long term (current) use of oral hypoglycemic drugs; Z86.73 Personal history of transient ischemic attack (TIA), and cerebral infarction without residual deficits; Z88.6 Allergy status to analgesic agent
CPT/HCPCS: 36415; 80048; 84484; 85025

== ENCOUNTER 2024-12-05 11:25 | Emergency (ER) | payer OTHER ==
[~2024-12-05] VITALS: Ht 165.1 cm; Wt 83.1 kg
[~2024-12-05 11:25] MED LIST changes: +LISI-275 PO
--- NOTE | 2024-12-05 12:13 | ED.PDOC ---
History of Present Illness HPI Comments 64 year old female with PMHx anxiety, arthritis, asthma, CVA, depression, DM, HLD, HTN, thyroid disease, CHF presents to the ED with a chief compliant of anxiety onset today (12/05/24). Patient states she has been under stress recently, woke up today feeling anxious, is also experiencing LT arm numbness/tingling. She had appointment with PCP for anxiety medication, was late to the appointment, had to reschedule. Patient states she was seen in an ED 4 days ago, was given anxiety medication but was not prescribed any. Denies chest pain, shortness of breath, dizziness, fever, chills, nausea, vomiting, diarrhea, dysuria, hematuria, headache. No other symptoms or modifying factors present at this time. Chief Complaint: Anxiety Time Seen by MD: 12:00 Primary Care Provider: DR DUBON Reviewed Notes: Medications, Allergies Allergies: Coded Allergies: Aspirin (Verified Allergy, Unknown, 01/04/21) Home Meds Active Scripts Lisinopril (Lisinopril) 5 Mg Tab, 5 MG PO DAILY for 10 Days, #10 TAB Prov:JARVIS SAM MD 11/13/24 Triamcinolone Acetonide (Triamcinolone Acetonide) 0.1 % Cre, 1 APPLIC EX BID for 5 Days, #90 GRAMS 0 Refills Prov:MINA FIELDS NP 10/10/24 Hydroxyzine Pamoate (Hydroxyzine Pamoate) 25 Mg Cap, 1 CAP PO DAILYPRN PRN for ANXIETY for 30 Days, #30 CAP 0 Refills Prov:MINA FIELDS NP 10/10/24 Furosemide (Furosemide) 20 Mg Tab, 1 TAB PO DAILY PRN for SWELLING for 30 Days, #30 TAB 0 Refills Prov:MINA FIELDS NP 10/10/24 Venlafaxine Hcl (Venlafaxine Hcl Er) 225 Mg Tab, 1 TAB PO DAILY for 30 Days, #30 TAB 0 Refills Prov:MINA FIELDS NP 10/10/24 Amlodipine Besylate (Amlodipine Besylate) 10 Mg Tab, 10 MG PO DAILY for 30 Days, #30 TAB Prov:MINA FIELDS NP 10/10/24 Potassium Chloride (Potassium Chloride ER) 10 Meq Tab, 10 MEQ PO BID for 90 Days, #180 TAB 5 Refills Prov:BRITTNEY MANNING MD 07/13/24 Atorvastatin Calcium (ATORVASTATIN CALCIUM) 20 Mg Tab, 40 MG PO HS for 90 Days, #180 TAB Prov:FEMI JEWELL 06/07/23 Cetirizine HCl (Eql All Day Allergy) 10 Mg Tab, 10 MG PO DAILY PRN, #30 TAB 0 Refills Prov:BETTE ROSALES 08/06/22 Reported Medications Pantoprazole Sodium Sesquihydr (Pantoprazole Sodium) 40 Mg Tab, 1 TAB PO DAILY 06/21/24 Trazodone HCl (Trazodone Hydrocloride) 100 Mg Tab, 150 MG PO HS PRN for FOR INSOMNIA 06/21/24 Aspirin (Aspir-81) 81 Mg Tab, 81 MG PO DAILY, TAB 06/21/24 Montelukast Sodium (MONTELUKAST SODIUM) 10 Mg Tab, 10 MG PO DAILY for ALLERGIES, TAB 06/21/24 Levothyroxine Sodium (Levothyroxine Sodium) 50 Mcg Tab, 1 TAB PO DAILY 06/21/24 Topiramate (Topiramate) 25 Mg Tab, 1 TAB PO BID for HEADACHE 06/21/24 Ramelteon (Ramelteon) 8 Mg Tab, 0.5 TAB PO HS 06/04/23 Metformin Hydrochloride (Metformin Hcl Er) 500 Mg Tab, 1 TAB PO DAILY 06/04/23 Docusate Sodium (Docusate Sodium) 100 Mg Cap, 1 TAB PO TID 06/04/23 Acetaminophen (Acetaminophen Er) 650 Mg Tab, 1 TAB PO TID PRN for PAIN SCALE 1 THRU 6 06/04/23 Information Source: Patient Mode of Arrival: Ambulatory Severity: Moderate Timing: Hours Duration: Since onset Prehospital treatment: None Medication Refill: Lost Medication, For: Other (anxiety) Past Medical History PAST MEDICAL HISTORY: Anxiety, Arthritis, Asthma, CHF, CVA, Depression, DM, High Lipids, HTN, Thyroid Surgical History: Appendectomy, Cholecystectomy, Tubal Ligation ELEVATOR STARTER History: No Pertinent ELEVATOR STARTER History Family History Family History: Reviewed,noncontributory to illness, Family hx of HTN Social History Smoker: Non-Smoker Alcohol: Denies ETOH Use Drugs: Denies Drug Use Lives In: Home Constitutional: denies: chills, diaphoresis, fatigue, fever, malaise, sweats, weakness, others EENTM: denies: blurred vision, double vision, ear bleeding, ear discharge, ear drainage, ear pain, ear ringing, eye pain, eye redness, hearing loss, mouth pain, mouth swelling, nasal discharge, nose bleeding, nose congestion, nose pain, photophobia, tearing, throat pain, throat swelling, voice changes, others Respiratory: denies: cough, hemoptysis, orthopnea, SOB at rest, shortness of breath, SOB with excertion, stridor, wheezing, others Cardiovascular: denies: chest pain, dizzy spells, diaphoresis, Dyspnea on exertion, edema, irregular heart beat, left arm pain, lightheadedness, palpitations, PND, syncope, others Gastrointestinal: denies: abdomen distended, abdominal pain, blood streaked bowels, constipated, diarrhea, dysphagia, difficulty swallowing, hematemesis, melena, nausea, poor appetite, poor fluid intake, rectal bleeding, rectal pain, vomiting, others Genitourinary: denies: abnormal vagina bleeding, burning, dyspareunia, dysuria, flank pain, frequency, hematuria, incontinence, pain, , vagina discharge, urgency, others Neurological: reports: numbness, tingling; denies: dizziness, fainting, headache, left sided numbness, left sided weakness, paresthesia, pre-existing deficit, right sided numbness, right sided weakness, seizure, speech problems, t remors, weakness, others Musculoskeletal: denies: back pain, gout, joint pain, joint swelling, muscle pain, muscle stiffness, neck pain, others Integumetry: denies: bruises, change in color, change in hair/nails, dryness, laceration, lesions, lumps, rash, wounds, others Allergic/Immunocompromised: denies: Difficulty Healing, Frequent Infections, Hives, Itching, others Hematologic/Lymphatic: denies: anemia, blood clots, easy bleeding, easy bruising, swollen glands, others Endocrine: denies: excessive hunger, excessive sweating, excessive thirst, excessive urination, flushing, intolerance to cold, intolerance to heat, unexplained weight gain, unexplained weight loss, others Psychiatric: reports: anxiety; denies: bipolar disorder, depression, hopeless, panic disorder, schizophrenia, sleepless, suicidal, others All Other Systems: Reviewed and Negative Physical Exam General Appearance: No Apparent Distress HEENT: Normal ENT Inspection, Pharynx Normal, TMs Normal Neck: Full Range of Motion, Non-Tender, Normal, Normal Inspection Respiratory: Chest Non-Tender, Lungs Clear, No Accessory Muscle Use, No Respiratory Distress, Normal Breath Sounds Cardiovascular: No Edema, No JVD, No Murmur, No Gallop, Normal Peripheral Pulses, Regular Rate/Rhythm Breast Exam: Deferred Gastrointestinal: No Organomegaly, Non Tender, No Pulsatile Mass, Normal Bowel Sounds, Soft Genitalia: Deferred Pelvic: Deferred Rectal: Deferred Extremities: No calf tenderness, Normal capillary refill, Normal inspection, Normal range of motion, Non-tender, No pedal edema Musculoskeletal : Apperance: Normal Neurologic: Alert, work checker II-XII nml as Tested, No Motor Deficits, No Sensory Deficits, Other (Anxiety) Cerebellar Function: Normal Reflexes: Normal Skin: Dry, Normal Color, Warm Lymphatic: No Adenopathy Was a procedure done? Was a procedure done?: No Differential Dx Considerations may include: Acute anxiety, generalized weakness X-Ray, Labs, Meds, VS Vital Signs Date Time Temp Pulse Resp B/P (MAP) Pulse Ox O2 Delivery O2 Flow Rate FiO2 12/05/24 12:33 72 12/05/24 12:31 72 18 172/80 (110) 98 12/05/24 11:26 98.2 100 20 161/66 67 98.2 Current Medications Medications (Trade) Dose Ordered Sig/Dana Route Start Time Stop Time Status Last Admin Alprazolam (Xanax Tablet) 0.5 mg ONCE ONCE PO 12/05/24 12:15 12/05/24 12:16 DC 12/05/24 12:29 The patient was given Xanax 0.5 mg by mouth The patient is being discharged and will follow up with the primary care doctor The patient will return to the emergency department's condition worsens. Time of 1ST Reevaluation: 12:30 Reevaluation 1ST: Unchanged Patient Education/Counseling: Diagnosis, Treatment, Prognosis, Need For Follow Up Family Education/Counseling: No Family Present SEPSIS Sepsis Screen Date sepsis recognized/suspect: Dec 05, 2024 Time Sepsis recognized/suspect: 1126 Recent Procedure: No On Antibiotic Therapy: No Respiratory Rate >20: No Heart Rate >90: No Temp<36 C (96.8 F) or >38.3 C: No SBP <90 or MAP <65 mmHG: No New Acute Mental Status Change: No Is the patient on CPAP, BIPAP,: No Physician Orders Electrocardigram (12/05/24 12:33) Vital Signs Date Time Temp Pulse Resp B/P (MAP) Pulse Ox O2 Delivery O2 Flow Rate FiO2 12/05/24 12:33 72 12/05/24 12:31 72 18 172/80 (110) 98 12/05/24 11:26 98.2 100 20 161/66 67 98.2 Medications Medications Dose Ordered Sig/Dana Route Start Time Stop Time Status Last Admin Dose Admin Alprazolam 0.5 mg ONCE ONCE PO 12/05/24 12:15 12/05/24 12:16 DC 12/05/24 12:29 Departure 1 Departure Time of Disposition: 13:48 Impression: Primary Impression: Acute anxiety Disposition: 01 HOME / SELF CARE / HOMELESS Condition: Fair Discharged With: Self Critical Care Note Critical Care Time?: No Stability Stability form required: No Heart Score Heart Score: Heart Score Response (Comments) Value History N/A 0 EKG N/A 0 Age N/A 0 Risk Factors N/A 0 Troponin N/A 0 Total 0 I personally scribed for YUSUF CLARK MD ([email or web address]) on 12/05/24 at 12:13. Electronically submitted by Anisa Wharton ([email or web address]). YUSUF CLARK MD Dec 05, 2024 12:13
[2024-12-05] MEDS: ALPRAZolam 0.5 MG TAB PO ONE (12:29)
[2024-12-05] MEDS ORDERED: ALPR0.25 PO (13:49)
[2024-12-05 13:56] VITALS: BP 149/83; PULSE 62; RESP 16; TEMP 97.8; O2SAT 96
== END 2024-12-05 13:57 | disposition home or self-care (01) ==
LOC: ER 11:27
DX: F41.9 Anxiety disorder, unspecified (principal); I11.0 Hypertensive heart disease with heart failure; I50.9 Heart failure, unspecified; J45.909 Unspecified asthma, uncomplicated; Z98.51 Tubal ligation status; E78.5 Hyperlipidemia, unspecified; E11.9 Type 2 diabetes mellitus without complications; Z90.49 Acquired absence of other specified parts of digestive tract; Z88.6 Allergy status to analgesic agent; Z86.73 Personal history of transient ischemic attack (TIA), and cerebral infarction without residual deficits; Z79.890 Hormone replacement therapy; Z79.899 Other long term (current) drug therapy

== ENCOUNTER 2025-01-06 14:27 | Emergency (ER) | payer OTHER ==
[~2025-01-06] VITALS: Ht 165.1 cm; Wt 84.5 kg
[~2025-01-06 14:27] MED LIST changes: +ALPR0.25 PO
[2025-01-06 15:18] LABS: Hematocrit 39.8 % (36.0-46.0); Hemoglobin 13.5 g/dL (12.2-16.2); Mean Corpuscular Hemoglobin 28.0 pg (28.0-32.0); Mean Corpuscular Volume 82.3 fL (80.0-100.0); Nucleated Red Blood Cells % 0.1 %
[2025-01-06 15:23] LABS: Chloride 103 mmol/L (98-107); Potassium 4.4 mmol/L (3.5-5.1); Sodium 141 mmol/L (136-145)
[2025-01-06 15:24] LABS: Anion Gap 11 (5-15); Calcium 10.0 mg/dL (8.7-10.4); Carbon Dioxide 27 mmol/L (20-31)
[2025-01-06 15:29] LABS: BUN/Creatinine Ratio 17.6 (10.0-20.0); Blood Urea Nitrogen 13 mg/dL (9-23); Glucose 77 mg/dL (74-106)
--- NOTE | 2025-01-06 16:06 | DVH ---
EXAM DESCRIPTION: Chest 1 View CLINICAL HISTORY: CHEST PAIN COMPARISON: XY CHEST PORTABLE on DOS: 06/20/24, XY CHEST PORTABLE on DOS: 02/07/24, XY CHEST XRAY 1 VIEW on DOS: 12/07/23, XY CHEST PORTABLE on DOS: 07/23/23, XY CHEST PORTABLE on DOS: 06/04/23 FINDINGS and IMPRESSION: Lines, tubes, and support devices: None. Lungs / Pleura: No consolidation. No pleural effusion. No pneumothorax. Mediastinum: Normal cardiomediastinal silhouette. Osseous structures / Soft tissues: No acute findings.
--- NOTE | 2025-01-06 16:18 | ED.PDOC ---
Back pain HPI HPI Comments 64 y.o female presents to the ED for a chief complaint of left arm pain radiating to her chest and back. Patient reports arm pain has been ongoing for months but chest pain started yesterday and is described a pinching and aching sensation. Patient was seen by PCP 2 days ago for chronic pain, had X rays done but is awaiting results. She was also referred out to [facility] for higher level of care given pain. She denies any SOB, nausea, vomiting, diarrhea, fever, or chills. Patient has pain on palpation and presented at rest. Chief Complaint: Chest Pain Time Seen by MD: 15:43 Primary Care Provider: DR DUBON Reviewed Notes: Nurses Notes, Medications, Allergies Allergies: Coded Allergies: Aspirin (Verified Allergy, Unknown, 01/04/21) Home Meds Active Scripts Alprazolam (Xanax) 0.25 Mg Tb, 1 TAB PO DAILY, #30 TAB Prov:YUSUF CLARK MD 12/05/24 Lisinopril (Lisinopril) 5 Mg Tab, 5 MG PO DAILY for 10 Days, #10 TAB Prov:JARVIS SAM MD 11/13/24 Triamcinolone Acetonide (Triamcinolone Acetonide) 0.1 % Cre, 1 APPLIC EX BID for 5 Days, #90 GRAMS 0 Refills Prov:MINA FIELDS NP 10/10/24 Hydroxyzine Pamoate (Hydroxyzine Pamoate) 25 Mg Cap, 1 CAP PO DAILYPRN PRN for ANXIETY for 30 Days, #30 CAP 0 Refills Prov:MINA FIELDS NP 10/10/24 Furosemide (Furosemide) 20 Mg Tab, 1 TAB PO DAILY PRN for SWELLING for 30 Days, #30 TAB 0 Refills Prov:IMNA FIELDS NP 10/10/24 Venlafaxine Hcl (Venlafaxine Hcl Er) 225 Mg Tab, 1 TAB PO DAILY for 30 Days, #30 TAB 0 Refills Prov:MINA FIELDS NP 10/10/24 Amlodipine Besylate (Amlodipine Besylate) 10 Mg Tab, 10 MG PO DAILY for 30 Days, #30 TAB Prov:MINA FIELDS NP 10/10/24 Potassium Chloride (Potassium Chloride ER) 10 Meq Tab, 10 MEQ PO BID for 90 Days, #180 TAB 5 Refills Prov:BRITTNEY MANNING MD 07/13/24 Atorvastatin Calcium (ATORVASTATIN CALCIUM) 20 Mg Tab, 40 MG PO HS for 90 Days, #180 TAB Prov:FEMI JEWELL RESIDENT 06/07/23 Cetirizine HCl (Eql All Day Allergy) 10 Mg Tab, 10 MG PO DAILY PRN, #30 TAB 0 Refills Prov:BETTE ROSALES 08/06/22 Reported Medications Pantoprazole Sodium Sesquihydr (Pantoprazole Sodium) 40 Mg Tab, 1 TAB PO DAILY 06/21/24 Trazodone HCl (Trazodone Hydrocloride) 100 Mg Tab, 150 MG PO HS PRN for FOR INSOMNIA 06/21/24 Aspirin (Aspir-81) 81 Mg Tab, 81 MG PO DAILY, TAB 06/21/24 Montelukast Sodium (MONTELUKAST SODIUM) 10 Mg Tab, 10 MG PO DAILY for ALLERGIES, TAB 06/21/24 Levothyroxine Sodium (Levothyroxine Sodium) 50 Mcg Tab, 1 TAB PO DAILY 06/21/24 Topiramate (Topiramate) 25 Mg Tab, 1 TAB PO BID for HEADACHE 06/21/24 Ramelteon (Ramelteon) 8 Mg Tab, 0.5 TAB PO HS 06/04/23 Metformin Hydrochloride (Metformin Hcl Er) 500 Mg Tab, 1 TAB PO DAILY 06/04/23 Docusate Sodium (Docusate Sodium) 100 Mg Cap, 1 TAB PO TID 06/04/23 Acetaminophen (Acetaminophen Er) 650 Mg Tab, 1 TAB PO TID PRN for PAIN SCALE 1 THRU 6 06/04/23 Information Source: Patient Mode of Arrival: EMS Timing: Months Duration: Since onset Quality: Aching Onset: Spontaneous Circumstance: Other History of: None Modifying Factors: Nothing Associated signs and symptoms: Other Past Medical History PAST MEDICAL HISTORY: Anxiety, Arthritis, Asthma, CHF, CVA, Depression, DM, High Lipids, HTN, Thyroid Surgical History: Appendectomy, Cholecystectomy, Tubal Ligation TELEVISION PRODUCTION ASSISTANT History: No Pertinent TELEVISION PRODUCTION ASSISTANT History Family History Family History: Reviewed,noncontributory to illness, Family hx of HTN Social History Smoker: Non-Smoker Alcohol: Denies ETOH Use Drugs: Denies Drug Use Lives In: Home Constitutional: denies: chills, diaphoresis, fatigue, fever, malaise, sweats, weakness, others EENTM: denies: blurred vision, double vision, ear bleeding, ear discharge, ear drainage, ear pain, ear ringing, eye pain, eye redness, hearing loss, mouth pain, mouth swelling, nasal discharge, nose bleeding, nose congestion, nose pain, photophobia, tearing, throat pain, throat swelling, voice changes, others Respiratory: denies: cough, hemoptysis, orthopnea, SOB at rest, shortness of breath, SOB with excertion, stridor, wheezing, others Cardiovascular: denies: chest pain, dizzy spells, diaphoresis, Dyspnea on exertion, edema, irregular heart beat, left arm pain, lightheadedness, palpitations, PND, syncope, others Gastrointestinal: denies: abdomen distended, abdominal pain, blood streaked bowels, constipated, diarrhea, dysphagia, difficulty swallowing, hematemesis, melena, nausea, poor appetite, poor fluid intake, rectal bleeding, rectal pain, vomiting, others Genitourinary: denies: abnormal vagina bleeding, burning, dyspareunia, dysuria, flank pain, frequency, hematuria, incontinence, pain, , vagina discharge, urgency, others Neurological: denies: dizziness, fainting, headache, left sided numbness, left sided weakness, numbness, paresthesia, pre-existing deficit, right sided numbness, right sided weakness, seizure, speech problems, tingling, tremors, weakness, others Musculoskeletal: reports: back pain, neck pain, others (chestwall pain ); denies: gout, joint pain, joint swelling, muscle pain, muscle stiffness Integumetry: denies: bruises, change in color, change in hair/nails, dryness, laceration, lesions, lumps, rash, wounds, others Allergic/Immunocompromised: denies: Difficulty Healing, Frequent Infections, Hives, Itching, others Hematologic/Lymphatic: denies: anemia, blood clots, easy bleeding, easy bruising, swollen glands, others Endocrine: denies: excessive hunger, excessive sweating, excessive thirst, excessive urination, flushing, intolerance to cold, intolerance to heat, unexplained weight gain, unexplained weight loss, others Psychiatric: denies: anxiety, bipolar disorder, depression, hopeless, panic disorder, schizophrenia, sleepless, suicidal, others All Other Systems: Reviewed and Negative Physical Exam General Appearance: No Apparent Distress, Normal HEENT: Normal ENT Inspection, Pharynx Normal, TMs Normal Neck: Tender Lateral Respiratory: Chest Non-Tender, Lungs Clear, No Accessory Muscle Use, No Respiratory Distress, Normal Breath Sounds Cardiovascular: No Edema, No JVD, No Murmur, No Gallop, Normal Peripheral Pulses, Regular Rate/Rhythm Breast Exam: Deferred Gastrointestinal: No Organomegaly, Non Tender, No Pulsatile Mass, Normal Bowel Sounds, Soft Genitalia: Deferred Pelvic: Deferred Rectal: Deferred Extremities: No calf tenderness, Normal capillary refill, Normal inspection, Normal range of motion, Non-tender, No pedal edema Musculoskeletal : Extremity Location: Back, Chest Apperance: Tenderness: Moderate Neurologic: Alert, ncqa specialist II-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 Was a procedure done?: No Back Pain Differential Dx Differential Diagnosis: Ectopic Pregnany, Musculoskeletal Pain, Strain, Other (angina) X-Ray, Labs, Meds, VS Vital Signs Date Time Temp Pulse Resp B/P (MAP) Pulse Ox O2 Delivery O2 Flow Rate FiO2 01/06/25 17:03 98.0 69 18 139/55 (83) 100 98.0 01/06/25 17:03 69 18 100 Room Air* 0 21 01/06/25 16:54 97.8 70 18 125/53 (77) 100 97.8 01/06/25 15:25 64 01/06/25 14:46 98.5 75 20 118/72 99 98.5 01/06/25 14:31 73 Lab Test 01/06/25 16:06 01/06/25 14:52 Range/Units Troponin I High Sensitivity < 3 L < 3 L </=34 ng/L White Blood Count 7.8 4.4-10.8 10^3/uL Red Blood Count 4.83 4.0-5.20 10^6/uL Hemoglobin 13.5 12.2-16.2 g/dL Hematocrit 39.8 36.0-46.0 % Mean Corpuscular Volume 82.3 80.0-100.0 fL Mean Corpuscular Hemoglobin 28.0 28.0-32.0 pg Mean Corpuscular Hemoglobin Concent 34.0 32.0-36.0 g/dL Red Cell Distribution Width 13.8 11.8-14.3 % Platelet Count 288 140-450 10^3/uL Mean Platelet Volume 8.3 6.9-10.8 fL Neutrophils (%) (Auto) 52.8 37.0-80.0 % Lymphocytes (%) (Auto) 40.9 10.0-50.0 % Monocytes (%) (Auto) 3.6 0.0-12.0 % Eosinophils (%) (Auto) 2.3 0.0-7.0 % Basophils (%) (Auto) 0.4 0.0-2.0 % Neutrophils # (Auto) 4.1 1.6-8.6 10 ^3/uL Lymphocytes # (Auto) 3.2 0.4-5.4 10 ^3/uL Monocytes # (Auto) 0.3 0-1.3 10 ^3/uL Eosinophils # (Auto) 0.2 0-0.8 10 ^3/uL Basophils # (Auto) 0 0-0.2 10 ^3/uL Nucleated Red Blood Cells 0.1 % Sodium Level 141 136-145 mmol/L Potassium Level 4.4 3.5-5.1 mmol/L Chloride Level 103 98-107 mmol/L Carbon Dioxide Level 27 20-31 mmol/L Anion Gap 11 5-15 Blood Urea Nitrogen 13 9-23 mg/dL Creatinine 0.74 0.550-1.02 mg/dL Glomerular Filtration Rate Calc 91 >90 mL/min BUN/Creatinine Ratio 17.6 10.0-20.0 Serum Glucose 77 74-106 mg/dL Calcium Level 10.0 8.7-10.4 mg/dL Current Medications Medications (Trade) Dose Ordered Sig/Dana Route Start Time Stop Time Status Last Admin Ketorolac Tromethamine (Toradol Injection) 30 mg ONCE ONCE IM 01/06/25 16:15 01/06/25 16:52 DC 01/06/25 17:[address] [address] Ph: [phone] DIAGNOSTIC IMAGING Diagnostic Imaging Report : [id number] Signed PATIENT: TAMAR FRYE TOMACCT: [id number] UNIT: [id number] : 1960 LOC: ER ROOM / BED: / AGE / SEX: 64 / F ADM STATUS: REG ER SERVICE 1451 ORDERING PHYSICIAN: ELIAZAR MORGAN MD PROCEDURE(s): CXR1 - CHEST XRAY 1 VIEW REASON: CHEST PAIN ORDER NUMBER(s): [id number], ACCESSION NUMBER(s): [id number] EXAM DESCRIPTION: Chest 1 View CLINICAL HISTORY: CHEST PAIN COMPARISON: XY CHEST PORTABLE on DOS: 06/20/24, XY CHEST PORTABLE on DOS: 02/07/24, XY CHEST XRAY 1 VIEW on DOS: 12/07/23, XY CHEST PORTABLE on DOS: 07/23/23, XY CHEST PORTABLE on DOS: 06/04/23 FINDINGS and IMPRESSION: Lines, tubes, and support devices: None. Lungs / Pleura: No consolidation. No pleural effusion. No pneumothorax. Mediastinum: Normal cardiomediastinal silhouette. Osseous structures / Soft tissues: No acute findings. ATED BY: JUSTO KNIGHT MD DICTATED DATE/TIME: 01/06/25 1533 SIGNED BY: JUSTO KNIGHT MD SIGNED DATE/TIME: 01/06/25 153 CC: X-Ray, Labs, Meds, VS Comment Imaging was reviewed by this provider, there is no obvious pathological or acute disease process. Pending radiology review Labs were reviewed by this provider, no abnormalities Vital signs reviewed by this provider, clinically stable Time of 1ST Reevaluation: 16:14 Reevaluation 1ST: Unchanged Patient Education/Counseling: Diagnosis, Treatment, Prognosis, Need For Follow Up (Follow up with PCP next available appointment. Return to emergency department symptoms worsen.) Family Education/Counseling: No Family Present SEPSIS Sepsis Screen Date sepsis recognized/suspect: Jan 06, 2025 Time Sepsis recognized/suspect: 1446 Recent Procedure: No On Antibiotic Therapy: No Respiratory Rate >20: No Heart Rate >90: No Temp<36 C (96.8 F) or >38.3 C: No SBP <90 or MAP <65 mmHG: No New Acute Mental Status Change: No Is the patient on CPAP, BIPAP,: No Physician Orders Electrocardigram (01/06/25 14:40) Chest Xray 1 View (01/06/25 14:51) Electrocardigram (01/06/25 15:40) Vital Signs Date Time Temp Pulse Resp B/P (MAP) Pulse Ox O2 Delivery O2 Flow Rate FiO2 01/06/25 17:03 98.0 69 18 139/55 (83) 100 98.0 01/06/25 17:03 69 18 100 Room Air* 0 21 01/06/25 16:54 97.8 70 18 125/53 (77) 100 97.8 01/06/25 15:25 64 01/06/25 14:46 98.5 75 20 118/72 99 98.5 01/06/25 14:31 73 Laboratory Tests Test 01/06/25 14:52 White Blood Count 7.8 10^3/uL (4.4-10.8) Medications Medications Dose Ordered Sig/Dana Route Start Time Stop Time Status Last Admin Dose Admin Ketorolac Tromethamine 30 mg ONCE ONCE IM 01/06/25 16:15 01/06/25 16:52 DC 01/06/25 17:00 Departure 1 Departure Time of Disposition: 17:59 Impression: Primary Impression: Acute anxiety Additional Impression: Muscle spasms of neck Disposition: HOME / SELF CARE / HOMELESS Condition: Stable e-Prescriptions Cyclobenzaprine Hcl (Cyclobenzaprine Hcl) 5 Mg Tab 1 TAB PO TID PRN, #30 TAB Prov: ARIANNA DUNN 01/06/25 Discharged With: Self Critical Care Note Critical Care Time?: No Stability Stability form required: No Heart Score Heart Score: Heart Score Response (Comments) Value History Slightly Suspicious 0 EKG Normal 0 Age 45-64 1 Risk Factors No known risk factors 0 Troponin Normal limit 0 Total 1 I personally scribed for ARIANNA DUNN ANALYSIS CONSULTANT ([email or web address]) on 01/06/25 at 16:18. Electronically submitted by Tammie Ortiz ([facility]). I personally scribed for ARIANNA DUNN ANALYSIS CONSULTANT ([email or web address]) on 01/06/25 at 16:51. Electronically submitted by Tammie Ortiz ([facility]). ARIANNA DUNN Jan 06, 2025 16:18
[2025-01-06] MEDS: KETOROLAC TROMETH 30 MG/ML 1ML VIAL IM ONE (17:00)
[2025-01-06 17:03] VITALS: PULSE 69; RESP 18; O2SAT 100
[2025-01-06] MEDS ORDERED: CYCL-837 PO (18:00)
[2025-01-06 18:42] VITALS: BP 135/55; PULSE 63; RESP 18; TEMP 98.3; O2SAT 98
--- NOTE | 2025-01-10 06:38 | ECG ---
[facility] Test Date: 2025-01-06 Test Time: 15:25:48 Pat Name: TAMAR CARRIZALES Department: Room: Gender: F Show Girl: JOIE : 1960 Requested By: ELIAZAR MORGAN Order Number: [id number] Reading MD: Measurements Intervals [place] Rate: 64 P: 46 RI: 152 QRS: 71 QRSD: 105 T: 72 QT: 578 QTc: 597 Interpretive Statements Sinus rhythm Borderline T abnormalities, lateral leads Prolonged QT interval Baseline wander in lead(s) II,III,aVF,V6 Please click the below link to view image of tracing.
--- NOTE | 2025-01-10 06:38 | ECG ---
[facility] Test Date: 2025-01-06 Test Time: 14:29:59 Pat Name: TAMAR CARRIZALES Department: [facility] ED Patient ID: [facility]-[id number] Room: Gender: F Anesthesiology Fellow: WAQAR : 1960 Requested By: ELIAZAR MORGAN Order Number: [id number] Reading MD: Measurements Intervals [place] Rate: 73 P: 34 SD: 149 QRS: 44 QRSD: 105 T: 49 QT: 430 QTc: 474 Interpretive Statements Sinus rhythm Please click the below link to view image of tracing.
== END 2025-01-06 18:45 | disposition home or self-care (01) ==
LOC: EDBD 14:27 → ER 14:27
DX: F41.9 Anxiety disorder, unspecified (principal); M62.838 Other muscle spasm; R07.89 Other chest pain; I11.0 Hypertensive heart disease with heart failure; I50.9 Heart failure, unspecified; E03.9 Hypothyroidism, unspecified; E11.9 Type 2 diabetes mellitus without complications; F32.A Depression, unspecified; J45.909 Unspecified asthma, uncomplicated; M19.90 Unspecified osteoarthritis, unspecified site; Z79.82 Long term (current) use of aspirin; Z79.84 Long term (current) use of oral hypoglycemic drugs; Z79.899 Other long term (current) drug therapy; Z86.73 Personal history of transient ischemic attack (TIA), and cerebral infarction without residual deficits; Z90.49 Acquired absence of other specified parts of digestive tract; Z98.51 Tubal ligation status; Z88.6 Allergy status to analgesic agent
CPT/HCPCS: 36415; 71045; 80048; 84484; 85025; 93005; 96372; 99285; J1885